=== PATIENT | female | born 1985 | race Caucasian/White ===

== ENCOUNTER 2016-08-17 20:33 | Emergency (ER) | payer OTHER ==
--- NOTE | 2016-08-18 01:02 | DIAGNOSTIC IMAGING REPORT ---
PROCEDURE: XR CHEST 2 VIEW INDICATION: Cough x 2 weeks, initial encounter TECHNIQUE: PA and lateral view. COMPARISON: None. FINDINGS: Lungs are clear. Cardiovascular structures are normal. Bilateral nipple piercings . Bony thorax is unremarkable. No significant interval change. IMPRESSION: 1. Negative chest.
--- NOTE | 2016-08-18 04:09 | ED CLINICAL REPORT ---
Clinical Report - Physicians/Mid Levels [facility] [address] [place] [address] 08/17/2016 20:35 [id number] Time Seen: 21:09; initial patient contact. Arrived- By private vehicle. Historian- patient. HISTORY OF PRESENT ILLNESS Chief Complaint: "GOT THE SHAKES". Wants to stop drinking. Wants to enter detox program. Looking for a treatment center, all are full, she is worried about DT's while she looks. Symptoms started today. Duration of substance abuse- several months. Substances abused: Alcohol. Last drink consisted of liquor less than 12 hours ago. No fever, chills, diarrhea, abdominal pain or seizure. No agitation, delusions, hallucinations or suicidal thoughts. She has had nausea, vomiting and tremors. Not confused or paranoid. Has not been depressed. The symptoms are described as moderate. No injuries noted. Similar symptoms previously: Several times. Recent medical care: Not recently seen/assessed. REVIEW OF SYSTEMS No sweats, headache, dizziness, weakness or chest pain. She has had difficulty breathing, palpitations and a cough. All systems otherwise negative, except as recorded above. PAST HISTORY Dehydration. Hepatitis. Sinus Tachycardia. Alcohol Withdrawal. Lumbar Strain. Insomnia. Back Pain. URI. . SURGERIES: Dental Surgery. Tonsillectomy. SOCIAL HISTORY Current every day smoker. Alcohol use. Patient is alcoholic. Has social support. Has place to stay. ADDITIONAL NOTES The nursing notes have been reviewed with agreement regarding the chief complaint, PMH and patient medications and allergies. PHYSICAL EXAM Vital Signs: 08/17/2016 21:11 BP: 137/93. HR: 127. RR: 16. O2 saturation: 98%. Temp: 98.4 F. Have been reviewed. Hypertensive. Tachycardic. Respiratory rate normal. Temperature normal. Oxygen saturation normal. Appearance: Alert. Oriented X3. No acute distress. ENT: Dry mucous membranes present. CVS: Tachycardia. Heart sounds normal. Rhythm normal. Respiratory: No respiratory distress. Expiratory mild bilateral wheezes diffusely. No decreased air movement. Abdomen: Soft and nontender. No organomegaly. Skin: Skin warm and dry. Normal skin color. No rash. Extremities: No calf tenderness. No lower extremity edema. Neuro: Alert. Oriented X 3. Mood/affect normal. Speech normal. LABS, X-RAYS, AND EKG Laboratory Tests: UA-Culture if indicated: (VERN: 08/17/2016 01:50) ( [facility] 08/18/2016 02:16) Final results Test Result Flag Units (Reference) URINE COLOR ORANGE URINE APPEARANCE SLIGHTLY HAZY URINE GLUCOSE NEGATIVE (NEGATIVE) URINE SPECIFIC GRAVITY >= 1.030 (1.010-1.030) URINE PH 6.0 (5.0-8.0) URINE PROTEIN 2+ (NEGATIVE) URINE UROBILINOGEN 1.0 EU/dL (0.2-1.0) URINE BLOOD TRACE-LYSED (NEGATIVE) URINE LEUK ESTERASE NEGATIVE (NEGATIVE) URINE RBC 0-1 rbc/hpf (0-1) URINE WBC 0-1 wbc/hpf (0-1) URINE EPITHELIAL CELLS 3-5 EPI/hpf (0-5) URINE BACTERIA NONE SEEN (NONE SEEN) URINE COMMENT CULT NOT INDICATED KETONE,NITRITE AND BILIRUBIN NOT REPORTED DUE TO COLORINTERFERENCE.MUCUS 3+AMORPHOUS 1+URINE CULTURES ARE SET-UP BASED ON THE FOLLOWING CRITERIA:POSITIVE NITRITEPOSITIVE LEUKOCYTE ESTERASEGREATER THAN 10 WHITE BLOOD CELLSMODERATE (2+) OR GREATER BACTERIA Urine: (VERN: 08/17/2016 01:50) ( [facility] 08/18/2016 02:04) Final results Test Result Flag Units (Reference) URINE NEGATIVE CBC w Diff: (VERN: 08/17/2016 21:15) ( [facility] 08/17/2016 21:55) Final results Test Result Flag Units (Reference) WHITE BLOOD COUNT 4.2 L K/uL (4.5-11.5) RED BLOOD COUNT 4.27 M/uL (4.00-5.20) HEMOGLOBIN 15.2 gm/dL (12.0-16.0) HEMATOCRIT 46.1 H % (36.0-46.0) MEAN CELL VOLUME 108 H fL (80-100) MEAN CORPUSCULAR HGB 36 H pg (26-34) MEAN CORPUSCULAR HGB CONC 33 g/dL (31-37) RED CELL DISTRIBUTION WIDTH 14.9 H % (11.6-14.8) PLATELET COUNT 146 L K/uL (150-400) NEUTROPHIL % 57.5 % (50-75) LYMPH % 27.7 % (25-40) MONO % 13.7 % (3-14) EOSINOPHIL % 0.5 % (0-4) BASOPHIL % 0.6 % (0-2) Ethyl Alcohol: (VERN: 08/17/2016 21:15) ( [facility] 08/17/2016 22:11) Final results Test Result Flag Units (Reference) ETHYL ALCOHOL 217 H mg/dL (3-10) Urine Drug Screen: (VERN: 08/17/2016 01:50) ( [facility] 08/18/2016 02:32) Final results Test Result Flag Units (Reference) AMPHETAMINE/METHAMPHETAMINE NEGATIVE (NEGATIVE) BARBITURATE NEGATIVE (NEGATIVE) BENZODIAZEPINE NEGATIVE (NEGATIVE) CANNABINOID NEGATIVE (NEGATIVE) COCAINE NEGATIVE (NEGATIVE) ECSTASY NEGATIVE (NEGATIVE) METHADONE NEGATIVE (NEGATIVE) OPIATE NEGATIVE (NEGATIVE) The urine drug screen is a qualitative screening test fordrug overdose and abuse. All screen results should beconsidered as presumptive.Drugs screened for are as follows:BenzodiazepinesCocaineAmphetamines/MetamphetaminesTHC (Tetrahydrocannabinol)OpiatesBarbituratesEcstasyMethadonePositive results are unconfirmed. For confirmation, notifythe lab for the specimen to be sent to the reference lab.All confirmations must be performed by a differentmethodology.The ingestion of natural herbal and plant productscontaining Ephedra/Ephedra metabolites can produce in urineone or more substances capable of cross reacting withamphetamine/methamphetamine immunoassays. These testsprovide a preliminary result only. A more specificalternative chemical method must be used to obtain aconfirmed analytical result. CMP: (VERN: 08/17/2016 21:15) ( [facility] 08/17/2016 22:03) Final results Test Result Flag Units (Reference) GLUCOSE 128 H mg/dL (70-110) BUN 14 mg/dL (7-18) CREATININE 1.0 mg/dL (0.6-1.3) Estimated GFR >60 mL/min Estimated GFR- >60 mL/min Note: Persistent reduction over 3 months in eGFR<60 mL/min/1.73 m2 defines CKD. Patients with eGFR values>=60 mL/min/1.73 m2 may also have CKD if evidence ofpersistent proteinuria. Additional information may be foundat www.kidney.org. SODIUM 141 mmol/L (136-145) POTASSIUM 3.9 mmol/L (3.5-5.1) CHLORIDE 99 mmol/L (98-107) CARBON DIOXIDE 25 mmol/L (21-32) CALCIUM 8.6 mg/dL (8.5-10.1) TOTAL PROTEIN 7.4 g/dL (6.4-8.2) ALBUMIN 4.3 g/dL (3.3-5.0) BILIRUBIN, TOTAL 2.3 H mg/dL (0.0-1.0) ALKALINE PHOSPHATASE 112 U/L (46-116) AST (SGOT) 478 H U/L (15-37) ALT (SGPT) 226 H U/L (12-78) . PROGRESS AND PROCEDURES Course of Care: 08/18/2016 02:54 BP: 104/57. HR: 100. RR: 16. O2 saturation: 96%. Vital Signs: have been reviewed. Hypotensive. Heart rate normal. Respiratory rate normal. Oxygen saturation normal. Physical exam findings are improved. Symptoms much better. Disposition: Condition: good. CLINICAL IMPRESSION Alcohol withdrawal with delirium tremens. No delirium, hallucinations or seizures. Abnormal liver function test: AST/SGOT and ALT/SGPT. INSTRUCTIONS Drink plenty of fluids. No alcohol. Prescription Medications: Chlordiazepoxide 25 mg: take 1 orally every 4 hours for 5 days. Dispense thirty (30). No refill. Zofran ODT 4 mg: take 1 orally every 6 hours as needed for nausea and vomiting. Dispense ten (10). No refill. Substitution is permissible. Flagyl 500 mg: Take 1 tablet orally every 12 hours for 7 days. No refill. Substitution is permissible Follow-up: Follow up with your doctor in about one day. Call for an appointment. (Electronically signed by Carlos A Deluna Dr. 08/18/2016 4:15)
--- NOTE | 2016-08-18 04:09 | ED ORDER SUMMARY ---
..... Patient: WILLIAM LEONARD OrderSheet [facility] VisitID: [id number] [place] [address] 30y, F Registration Date/Time: 08/17/2016 ORDER SHEET Weight: 79.3 kg Allergies: No Known Drug Allergy GENERAL ORDERS: CBC w Diff Urgent (21:36 08/17/2016 EBonlianna per protocol) (Ack 21:43 NHouse ER Tech1) (1:56 AMcQuoid ER Tech1) CMP Urgent (21:36 08/17/2016 EBonham per protocol) (Ack 21:43 NHouse ER Tech1) (1:56 AMcQuoid ER Tech1) UA-Culture if indicated Urgent (21:50 08/17/2016 Esther Blanc) (Ack 21:58 NHouse ER Tech1) (1:55 AMcQuoid ER Tech1) Urine Urgent (21:50 08/17/2016 Esther Blanc) (Ack 21:58 NHouse ER Tech1) (1:55 AMcQuoid ER Tech1) Urine Drug Screen Urgent (21:50 08/17/2016 Esther Blanc) (Ack 21:58 NHouse ER Tech1) (1:55 AMcQuoid ER Tech1) Ethyl Alcohol Urgent (21:52 08/17/2016 Esther Blanc) (Ack 21:58 NHouse ER Tech1) (1:56 AMcQuoid ER Tech1) Chest 2V Urgent (21:53 08/17/2016 Esther Blanc) (Ack 21:58 SCouse ER Tech1) (22:[address] [facility]) MEDICATION ORDERS: DuoNeb Neb Tx 1 unit dose (NOW) (21:53 08/17/2016 Esther Blanc) IV FLUIDS: IV NS with Normal Saline 1 Liter: initial bolus 1000 mL (1000 mL/hr), then 1000 mL/hr for X1 (NOW) (21:36 08/17/2016 EBonlianna per protocol) (21:37 EBonham) Zofran IV 4 mg (NOW) (21:36 08/17/2016 EBonham per protocol) (21:38 EBonham) Ativan IV 1 mg (HIGH ALERT MEDICATION, NOW) (21:50 08/17/2016 Esther Blanc) (22:06 Mary Jane) Ativan IV 1 mg (HIGH ALERT MEDICATION, NOW) (23:16 08/17/2016 Esther Blanc) (23:25 EBpino) Toradol IV 30 mg (NOW) (23:47 08/17/2016 Esther Blanc) (Ack 0:35 Desiree R.N.) (0:42 pino) ORDER SHEET NOTES: [Electronically signed by Carlos A Deluna Dr. (04:15 08/18/2016)] [Electronically signed by Andra Boston (04:25 08/18/2016)] [Electronically locked/signed by Andra Boston (04:25 08/18/2016)]
--- NOTE | 2016-08-18 04:09 | ED NURSING NOTES ---
Clinical Report - Nurses [facility] [address] [place] [address] 08/17/2016 20:35 Patient: WILLIAM LEONARD TRIAGE Triage time 2105. Acuity: LEVEL 3. Chief Complaint: NAUSEA and VOMITING. Alert. No acute distress. (tearful). --21:16 Andra Boston 21:11 08/17/16. BP: 137/93. HR: 127. RR: 16. O2 saturation: 98%. Temp: 98.4 F. Pain level now 0/10. --21:16 Andra Boston. Weight: 79.3 kg. Height/Length: 68 inches. BMI: 26.6. --21:11 Andra Boston. Medications None. --21:13 Andra Boston. Allergies No Known Drug Allergy. --21:13 Andra Boston. History Arrived by private vehicle. Historian: patient. Accompanied by family. This started today. ( Pt with 10 mos of etoh hx, 1/5th a day, is on the wait list for treatment facility, pts last drink at 1400, sts she is vomiting non stop and has been unable to eat, sts this started due to "a bad break up", py currently living with new boyfriend who she sts is sober and is aware of the problem, parents are here with pt). SOCIAL HX: Current every day heavy tobacco smoker (cigarette)- less than 1 pack per day. Heavy alcohol use; consumes one liquor bottle daily. Last drink was 7 hours ago. Patient is a longstanding alcoholic. No drug use. SELF HARM ASSESSMENT: A self harm assessment was performed. The patient answered "yes" to the question "Have you recently felt down, depressed, or hopeless?" and "Have you noticed less interest or pleasure in doing things?" and "no" to the question "Do you have thoughts of harming or killing yourself?", "Are you here because you tried to hurt yourself?", "Have you ever tried to hurt yourself before today?", "Have you recently had thoughts about harming or killing others?" and "Do you have any dangerous items in your possession?". --21:16 Andra Boston. PROBLEMS: Dehydration. Hepatitis. Sinus Tachycardia. Alcohol Withdrawal. Lumbar Strain. Insomnia. Back Pain. URI. --21:14 Andra Boston. ADDITIONAL SURGERIES: Dental Surgery. Tonsillectomy. --21:14 Andra Boston. Interventions ID band on patient. To treatment room. --21:16 Andra Boston. PHYSICAL ASSESSMENT Ambulatory to room. GENERAL / NEURO / PSYCH: Alert. Oriented X 4. Appears in distress. HEENT: Mucous membranes are pink. RESPIRATORY: Respirations not labored. Breath sounds within normal limits. CVS: Normal sinus rhythm noted. Capillary refill less than 2 seconds. GI / : Abdomen soft and nontender. Bowel sounds within normal limits. SKIN: Skin is warm and dry. --21:17 Andra Boston. NURSING PROGRESS NOTES 21:35 08/17/2016 Site #1 started via IV in the right antecubital space with an 20g angiocath, with aseptic technique and good blood return; one attempt. Blood drawn: rainbow set. Labeled in the presence of the patient and sent to the lab. Saline lock flushed with 10 mL saline. --21:35 Andra Boston 21:37 08/17/2016 Started bag #1 1000 mL IV Fluids IV NS (Saline); bolus of 1000 mL over 1000 hour(s) via site #1 via IV pump. --21:37 Andra Boston 21:37 08/17/2016 Zofran (Ondansetron HCl) IVP 4 mg given. via site #1. Allergies verified and confirmed 5 rights. IV patency established. IV site checked: no pain, redness, or swelling. IV flushed thoroughly pre- and post-medication administration. IVP given by RN. --21:38 Andra Boston 22:06 08/17/2016 Ativan (LORazepam) IVP 1 mg given. via site #1. Allergies verified, confirmed 5 rights and sedative warning given to the patient. IV patency established. IV site checked: no pain, redness, or swelling. IV flushed thoroughly pre- and post-medication administration. IVP given by RN. --22:06 Andra Boston 23:25 08/17/2016 Ativan (LORazepam) IVP 1 mg given. via site #1. Allergies verified, confirmed 5 rights and sedative warning given to the patient and patient's family. IV patency established. IV site checked: no pain, redness, or swelling. IV flushed thoroughly pre- and post-medication administration. IVP given by RN. --23:25 Andra Boston Reassessment after medication administered. She has had no adverse reaction. Overall patient status is the same- she states feels the same. Patient and family informed about reason for wait and about plan of care. --23:26 Andra Boston 23:08/17/16. BP: 114/79. HR: 105. RR: 20. O2 saturation: 97%. Pain level now 8/10. --23:26 Andra Boston 00:42 08/18/2016 Ativan (LORazepam) IVP 1 mg given. via site #1. Allergies verified, confirmed 5 rights and sedative warning given to the patient and patient's family. IV patency established. IV site checked: no pain, redness, or swelling. IV flushed thoroughly pre- and post-medication administration. IVP given by RN. --00:42 Andra Boston 00:42 08/18/2016 Toradol IVP 30 mg given. via site #1. Allergies verified and confirmed 5 rights. IV patency established. IV site checked: no pain, redness, or swelling. IV flushed thoroughly pre- and post-medication administration. IVP given by RN. --00:42 Andra Boston 00:43 08/18/16. BP: 111/66. HR: 114. RR: 20. O2 saturation: 95%. --00:43 Andra Boston 02:54 08/18/16. BP: 104/57. HR: 100. RR: 16. O2 saturation: 96%. Pain level now 0/10. --02:54 Andra Boston Reassessment after medication administered. She is sleeping and has had no adverse reaction. Overall patient status is improved- she states feels better. --02:54 Andra Boston 04:23 08/18/2016 Site #1 removed upon discharge. Pressure dressing applied. --04:23 Andra Boston 04:08/18/2016 IV Fluids IV NS Discontinued: bag #1 completed upon discharge. Total amount infused: 1000 mL. IV patency established. IV site checked: no pain, redness, or swelling. IV flushed thoroughly. --04:23 Andra Boston. DISPOSITION / DISCHARGE 04:08/18/16. BP: 114/70. HR: 120. RR: 18. O2 saturation: 96%. --04:24 Andra Boston Condition at departure: improved and stable. --04:24 Andra Boston Departure time: 0425. --04:24 Andra Boston No learning barriers present. Discharge instructions provided and reviewed with the parent. Reviewed medication(s). Parent verbalized understanding. Written instructions provided in Angolan. The patient was discharged by the physician. She was discharged home and accompanied by parent. She left the Emergency Department ambulatory and via private vehicle. Parent driving. --04:24 Andra Boston. Locked/Released at 08/18/2016 4:25 by Andra Boston,
--- NOTE | 2016-08-18 04:09 | ED CLINICAL REPORT ---
Clinical Report - Physicians/Mid Levels [facility] [address] [place] [address] 08/17/2016 20:35 [id number] Time Seen: 21:09; initial patient contact. Arrived- By private vehicle. Historian- patient. HISTORY OF PRESENT ILLNESS Chief Complaint: "GOT THE SHAKES". Wants to stop drinking. Wants to enter detox program. Looking for a treatment center, all are full, she is worried about DT's while she looks. Symptoms started today. Duration of substance abuse- several months. Substances abused: Alcohol. Last drink consisted of liquor less than 12 hours ago. No fever, chills, diarrhea, abdominal pain or seizure. No agitation, delusions, hallucinations or suicidal thoughts. She has had nausea, vomiting and tremors. Not confused or paranoid. Has not been depressed. The symptoms are described as moderate. No injuries noted. Similar symptoms previously: Several times. Recent medical care: Not recently seen/assessed. REVIEW OF SYSTEMS No sweats, headache, dizziness, weakness or chest pain. She has had difficulty breathing, palpitations and a cough. All systems otherwise negative, except as recorded above. PAST HISTORY Dehydration. Hepatitis. Sinus Tachycardia. Alcohol Withdrawal. Lumbar Strain. Insomnia. Back Pain. URI. . SURGERIES: Dental Surgery. Tonsillectomy. SOCIAL HISTORY Current every day smoker. Alcohol use. Patient is alcoholic. Has social support. Has place to stay. ADDITIONAL NOTES The nursing notes have been reviewed with agreement regarding the chief complaint, PMH and patient medications and allergies. PHYSICAL EXAM Vital Signs: 08/17/2016 21:11 BP: 137/93. HR: 127. RR: 16. O2 saturation: 98%. Temp: 98.4 F. Have been reviewed. Hypertensive. Tachycardic. Respiratory rate normal. Temperature normal. Oxygen saturation normal. Appearance: Alert. Oriented X3. No acute distress. ENT: Dry mucous membranes present. CVS: Tachycardia. Heart sounds normal. Rhythm normal. Respiratory: No respiratory distress. Expiratory mild bilateral wheezes diffusely. No decreased air movement. Abdomen: Soft and nontender. No organomegaly. Skin: Skin warm and dry. Normal skin color. No rash. Extremities: No calf tenderness. No lower extremity edema. Neuro: Alert. Oriented X 3. Mood/affect normal. Speech normal. LABS, X-RAYS, AND EKG Laboratory Tests: UA-Culture if indicated: (VERN: 08/17/2016 01:50) ( [facility] 08/18/2016 02:16) Final results Test Result Flag Units (Reference) URINE COLOR ORANGE URINE APPEARANCE SLIGHTLY HAZY URINE GLUCOSE NEGATIVE (NEGATIVE) URINE SPECIFIC GRAVITY >= 1.030 (1.010-1.030) URINE PH 6.0 (5.0-8.0) URINE PROTEIN 2+ (NEGATIVE) URINE UROBILINOGEN 1.0 EU/dL (0.2-1.0) URINE BLOOD TRACE-LYSED (NEGATIVE) URINE LEUK ESTERASE NEGATIVE (NEGATIVE) URINE RBC 0-1 rbc/hpf (0-1) URINE WBC 0-1 wbc/hpf (0-1) URINE EPITHELIAL CELLS 3-5 EPI/hpf (0-5) URINE BACTERIA NONE SEEN (NONE SEEN) URINE COMMENT CULT NOT INDICATED KETONE,NITRITE AND BILIRUBIN NOT REPORTED DUE TO COLORINTERFERENCE.MUCUS 3+AMORPHOUS 1+URINE CULTURES ARE SET-UP BASED ON THE FOLLOWING CRITERIA:POSITIVE NITRITEPOSITIVE LEUKOCYTE ESTERASEGREATER THAN 10 WHITE BLOOD CELLSMODERATE (2+) OR GREATER BACTERIA Urine: (VERN: 08/17/2016 01:50) ( [facility] 08/18/2016 02:04) Final results Test Result Flag Units (Reference) URINE NEGATIVE CBC w Diff: (VERN: 08/17/2016 21:15) ( [facility] 08/17/2016 21:55) Final results Test Result Flag Units (Reference) WHITE BLOOD COUNT 4.2 L K/uL (4.5-11.5) RED BLOOD COUNT 4.27 M/uL (4.00-5.20) HEMOGLOBIN 15.2 gm/dL (12.0-16.0) HEMATOCRIT 46.1 H % (36.0-46.0) MEAN CELL VOLUME 108 H fL (80-100) MEAN CORPUSCULAR HGB 36 H pg (26-34) MEAN CORPUSCULAR HGB CONC 33 g/dL (31-37) RED CELL DISTRIBUTION WIDTH 14.9 H % (11.6-14.8) PLATELET COUNT 146 L K/uL (150-400) NEUTROPHIL % 57.5 % (50-75) LYMPH % 27.7 % (25-40) MONO % 13.7 % (3-14) EOSINOPHIL % 0.5 % (0-4) BASOPHIL % 0.6 % (0-2) Ethyl Alcohol: (VERN: 08/17/2016 21:15) ( [facility] 08/17/2016 22:11) Final results Test Result Flag Units (Reference) ETHYL ALCOHOL 217 H mg/dL (3-10) Urine Drug Screen: (VERN: 08/17/2016 01:50) ( [facility] 08/18/2016 02:32) Final results Test Result Flag Units (Reference) AMPHETAMINE/METHAMPHETAMINE NEGATIVE (NEGATIVE) BARBITURATE NEGATIVE (NEGATIVE) BENZODIAZEPINE NEGATIVE (NEGATIVE) CANNABINOID NEGATIVE (NEGATIVE) COCAINE NEGATIVE (NEGATIVE) ECSTASY NEGATIVE (NEGATIVE) METHADONE NEGATIVE (NEGATIVE) OPIATE NEGATIVE (NEGATIVE) The urine drug screen is a qualitative screening test fordrug overdose and abuse. All screen results should beconsidered as presumptive.Drugs screened for are as follows:BenzodiazepinesCocaineAmphetamines/MetamphetaminesTHC (Tetrahydrocannabinol)OpiatesBarbituratesEcstasyMethadonePositive results are unconfirmed. For confirmation, notifythe lab for the specimen to be sent to the reference lab.All confirmations must be performed by a differentmethodology.The ingestion of natural herbal and plant productscontaining Ephedra/Ephedra metabolites can produce in urineone or more substances capable of cross reacting withamphetamine/methamphetamine immunoassays. These testsprovide a preliminary result only. A more specificalternative chemical method must be used to obtain aconfirmed analytical result. CMP: (VERN: 08/17/2016 21:15) ( [facility] 08/17/2016 22:03) Final results Test Result Flag Units (Reference) GLUCOSE 128 H mg/dL (70-110) BUN 14 mg/dL (7-18) CREATININE 1.0 mg/dL (0.6-1.3) Estimated GFR >60 mL/min Estimated GFR- >60 mL/min Note: Persistent reduction over 3 months in eGFR<60 mL/min/1.73 m2 defines CKD. Patients with eGFR values>=60 mL/min/1.73 m2 may also have CKD if evidence ofpersistent proteinuria. Additional information may be foundat www.kidney.org. SODIUM 141 mmol/L (136-145) POTASSIUM 3.9 mmol/L (3.5-5.1) CHLORIDE 99 mmol/L (98-107) CARBON DIOXIDE 25 mmol/L (21-32) CALCIUM 8.6 mg/dL (8.5-10.1) TOTAL PROTEIN 7.4 g/dL (6.4-8.2) ALBUMIN 4.3 g/dL (3.3-5.0) BILIRUBIN, TOTAL 2.3 H mg/dL (0.0-1.0) ALKALINE PHOSPHATASE 112 U/L (46-116) AST (SGOT) 478 H U/L (15-37) ALT (SGPT) 226 H U/L (12-78) . PROGRESS AND PROCEDURES Course of Care: 08/18/2016 02:54 BP: 104/57. HR: 100. RR: 16. O2 saturation: 96%. Vital Signs: have been reviewed. Hypotensive. Heart rate normal. Respiratory rate normal. Oxygen saturation normal. Physical exam findings are improved. Symptoms much better. Disposition: Condition: good. CLINICAL IMPRESSION Alcohol withdrawal with delirium tremens. No delirium, hallucinations or seizures. Abnormal liver function test: AST/SGOT and ALT/SGPT. INSTRUCTIONS Drink plenty of fluids. No alcohol. Prescription Medications: Chlordiazepoxide 25 mg: take 1 orally every 4 hours for 5 days. Dispense thirty (30). No refill. Zofran ODT 4 mg: take 1 orally every 6 hours as needed for nausea and vomiting. Dispense ten (10). No refill. Substitution is permissible. Flagyl 500 mg: Take 1 tablet orally every 12 hours for 7 days. No refill. Substitution is permissible Follow-up: Follow up with your doctor in about one day. Call for an appointment. (Electronically signed by Carlos A Deluna Dr. 08/18/2016 4:15)
--- NOTE | 2016-08-18 04:09 | ED ORDER SUMMARY ---
..... Patient: WILLIAM LEONARD OrderSheet [facility] VisitID: [id number] [place] [address] 30y, F Registration Date/Time: 08/17/2016 ORDER SHEET Weight: 79.3 kg Allergies: No Known Drug Allergy GENERAL ORDERS: CBC w Diff Urgent (21:36 08/17/2016 EBonlianna per protocol) (Ack 21:43 NHouse ER Tech1) (1:56 AMcQuoid ER Tech1) CMP Urgent (21:36 08/17/2016 EBonham per protocol) (Ack 21:43 NHouse ER Tech1) (1:56 AMcQuoid ER Tech1) UA-Culture if indicated Urgent (21:50 08/17/2016 Esther Blanc) (Ack 21:58 NHouse ER Tech1) (1:55 AMcQuoid ER Tech1) Urine Urgent (21:50 08/17/2016 Esther Blanc) (Ack 21:58 NHouse ER Tech1) (1:55 AMcQuoid ER Tech1) Urine Drug Screen Urgent (21:50 08/17/2016 Esther Blanc) (Ack 21:58 NHouse ER Tech1) (1:55 AMcQuoid ER Tech1) Ethyl Alcohol Urgent (21:52 08/17/2016 Esther Blanc) (Ack 21:58 NHouse ER Tech1) (1:56 AMcQuoid ER Tech1) Chest 2V Urgent (21:53 08/17/2016 Esther Blanc) (Ack 21:58 NVouse ER Tech1) (22:58 [facility]) MEDICATION ORDERS: DuoNeb Neb Tx 1 unit dose (NOW) (21:53 08/17/2016 Esther Blanc) IV FLUIDS: IV NS with Normal Saline 1 Liter: initial bolus 1000 mL (1000 mL/hr), then 1000 mL/hr for X1 (NOW) (21:36 08/17/2016 EBonlianna per protocol) (21:37 EBonham) Zofran IV 4 mg (NOW) (21:36 08/17/2016 EBonham per protocol) (21:38 EBonham) Ativan IV 1 mg (HIGH ALERT MEDICATION, NOW) (21:50 08/17/2016 Esther Blanc) (22:06 Mary Jane) Ativan IV 1 mg (HIGH ALERT MEDICATION, NOW) (23:16 08/17/2016 Esther Blanc) (23:25 EBpino) Toradol IV 30 mg (NOW) (23:47 08/17/2016 Esther Blanc) (Ack 0:35 Desiree R.N.) (0:42 pino) ORDER SHEET NOTES: [Electronically signed by Carlos A Deluna Dr. (04:15 08/18/2016)] [Electronically signed by Andra Boston (04:25 08/18/2016)] [Electronically locked/signed by Andra Boston (04:25 08/18/2016)]
--- NOTE | 2016-08-18 04:25 | ED MED RECONCILIATION SUMMARY ---
Patient: WILLIAM LEONARD Medication Reconciliation Report [facility] VisitID: [id number] [place] [address] 30y, F Registration Date/Time: 08/17/2016 Weight: 79.3 kg Height/Length: 68 in. BMI: 26.6 ALLERGIES: No Known Drug Allergy The patient's Home Medications are listed below: NONE. The source(s) of the original Home Medication information: Not obtained. The following Medications were given to the patient in the Emergency Department: IV NS IV Fluids bolus 1000 mL over 1000 hour(s), administered: 08/17/2016 9:37:00 PM Zofran [IVP] IVP 4 mg, administered: 08/17/2016 9:37:00 PM Ativan [IVP] IVP 1 mg, administered: 08/17/2016 10:06:00 PM Ativan [IVP] IVP 1 mg, administered: 08/17/2016 11:25:00 PM Ativan [IVP] IVP 1 mg, administered: 08/18/2016 12:42:00 AM Toradol [IVP] IVP 30 mg, administered: 08/18/2016 12:42:00 AM The following Medications were prescribed to the patient: Chlordiazepoxide 25 mg: take 1 orally every 4 hours for 5 days. Dispense thirty (30). No refill. -- Carlos A Deluna Dr. Zofran ODT 4 mg: take 1 orally every 6 hours as needed for nausea and vomiting. Dispense ten (10). No refill. Substitution is permissible. -- Carlos A Deluna Dr. Flagyl 500 mg: Take 1 tablet orally every 12 hours for 7 days. No refill. Substitution is permissible -- Carlos A Deluna Dr.
--- NOTE | 2016-08-18 04:25 | ED DISCHARGE INSTRUCTIONS ---
Patient: WILLIAM LEONARD General Instructions [facility] VisitID: [id number] [place] [address] 30y, F Registration Date/Time: 08/17/2016 Alcohol withdrawal with delirium tremens. No delirium, hallucinations or seizures. Abnormal liver function test: AST/SGOT and ALT/SGPT. INSTRUCTIONS Drink plenty of fluids. No alcohol. Prescription Medications: Chlordiazepoxide 25 mg: take 1 orally every 4 hours for 5 days. Dispense thirty (30). No refill. Zofran ODT 4 mg: take 1 orally every 6 hours as needed for nausea and vomiting. Dispense ten (10). No refill. Substitution is permissible. Flagyl 500 mg: Take 1 tablet orally every 12 hours for 7 days. No refill. Substitution is permissible Follow-up: Follow up with your doctor in about one day. Call for an appointment. ADDITIONAL INFORMATION Alcohol Withdrawal Alcohol withdrawal symptoms occur if you have been drinking steadily for at least several days, and your body gets used to the effect of alcohol. When you suddenly stop drinking (or, even just cut down your daily intake but continue to drink), you may develop alcohol withdrawal, also called the The usual symptoms last 3-4 days and include nervousness, shakiness, nausea, sweating, sleeplessness. In severe cases hallucinations (seeing things that are not there) and seizures can occur. Home Care: You will need plenty of rest and fluids over the next several days. Eat regular meals. Of course, do not drink any more alcohol. During this time, it is best that you stay with family or friends who can help and support you. You can also admit yourself to a residential detox program. Do not drive until all symptoms are gone and you are feeling better. If you were given sedative medication to reduce your symptoms, do not take it more often than prescribed and never take it with alcohol. Follow Up: Once you have gone through the withdrawal symptoms, you have fought half of the brown. To avoid the risk of returning to your previous drinking pattern, it is essential that you get follow-up support and treatment. Alcoholics Anonymous offers support through a self-help fellowship. There are no dues or fees. See the Yellow Pages and call for time and place of meetings. www.aa.org [employer] offers support to families of alcohol users. 201.727.7798 www.al-anon.org [employer] [place] On Alcoholism And Drug Dependence 037-664-5363 www.ncadd.org Residential alcohol detox programs are available. Check the Yellow Pages under Drug Abuse & Treatment Centers. Get Prompt Medical Attention if any of the following occur: Severe shakiness Hallucinations Seizure Fever over 100.5 F (38.0 C) oral Headache, confusion, extreme drowsiness, inability to awaken Increasing upper abdominal pain Repeated vomiting or vomiting blood Chlordiazepoxide Hydrochloride Oral capsule What is this medicine? CHLORDIAZEPOXIDE (klor dye az e POX peter) is a benzodiazepine. It is used to treat anxiety and alcohol withdrawal. How should I use this medicine? Take this medicine by mouth with a glass of water. Follow the directions on the prescription label. If this medicine upsets your stomach, take it with food or milk. Take your doses at regular intervals. Do not take your medicine more often than directed. If you have been taking this medicine regularly for some time, do not suddenly stop taking it. You must gradually reduce the dose or you may get severe side effects. Ask your doctor or health before and after school daycare worker for advice. Even after you stop taking this medicine it can still affect your body for several days. Talk to your social services specialist regarding the use of this medicine in children. Special care may be needed. While this drug may be prescribed for children as young as 6 years for selected conditions, precautions do apply. What side effects may I notice from receiving this medicine? Side effects that you should report to your doctor or health before and after school daycare worker as soon as possible: allergic reactions like skin rash, itching or hives, swelling of the face, lips, or tongue confusion, depression feeling faint or lightheaded, falls mood changes, excitability or aggressive behavior muscle cramps problems with balance, talking, walking restlessness tremors unusually weak or tired Side effects that usually do not require medical attention (report to your doctor or health before and after school daycare worker if they continue or are bothersome): change in sex drive or performance constipation drowsiness menstrual changes nausea, vomiting What may interact with this medicine? cimetidine medicines for anxiety or sleeping problems, like alprazolam, lorazepam, or triazolam medicines for depression, mental problems or psychiatric disturbances medicines for HIV infection or AIDS prescription pain medicines rifampin, rifapentine, or rifabutin some medicines for seizures like carbamazepine, phenobarbital, phenytoin, or primidone What if I miss a dose? If you miss a dose, take it as soon as you can. If it is almost time for your next dose, take only that dose. Do not take double or extra doses. Where should I keep my medicine? Keep out of the reach of children. This medicine can be abused. Keep your medicine in a safe place to protect it from theft. Do not share this medicine with anyone. Selling or giving away this medicine is dangerous and against the law. Store at room temperature between 15 and 30 degrees C (59 and 86 degrees F). Throw away any unused medicine after the expiration date. What should I tell my health care provider before I take this medicine? They need to know if you have any of these conditions: an alcohol or drug abuse problem kidney or liver disease suicidal thoughts an unusual or allergic reaction to chlordiazepoxide, other benzodiazepines, foods, dyes, or preservatives or trying to get breast-feeding What should I watch for while using this medicine? Visit your doctor or health before and after school daycare worker for regular checks on your progress. Your body can become dependent on this medicine. Ask your doctor or health before and after school daycare worker if you still need to take it. You may get drowsy or dizzy. Do not drive, use machinery, or do anything that needs mental alertness until you know how this medicine affects you. To reduce the risk of dizzy and fainting spells, do not stand or sit up quickly, especially if you are an older patient. Alcohol may increase dizziness and drowsiness. Avoid alcoholic drinks. Do not treat yourself for coughs, colds or allergies without asking your doctor or health before and after school daycare worker for advice. Some ingredients can increase possible side effects. Ondansetron Oral disintegrating tablet What is this medicine? ONDANSETRON (on CHAR se aurora) is used to treat nausea and vomiting caused by chemotherapy. It is also used to prevent or treat nausea and vomiting after surgery. How should I use this medicine? These tablets are made to dissolve in the mouth. Do not try to push the tablet through the foil backing. With dry hands, peel away the foil backing and gently remove the tablet. Place the tablet in the mouth and allow it to dissolve, then swallow. While you may take these tablets with water, it is not necessary to do so. Talk to your social services specialist regarding the use of this medicine in children. Special care may be needed. What side effects may I notice from receiving this medicine? Side effects that you should report to your doctor or health before and after school daycare worker as soon as possible: allergic reactions like skin rash, itching or hives, swelling of the face, lips, or tongue breathing problems dizziness fast or irregular heartbeat feeling faint or lightheaded, falls fever and chills swelling of the hands and feet tightness in the chest Side effects that usually do not require medical attention (report to your doctor or health before and after school daycare worker if they continue or are bothersome): constipation or diarrhea headache What may interact with this medicine? Do not take this medicine with any of the following medications: -apomorphine -cisapride -dofetilide -dronedarone -pimozide -thioridazine -ziprasidone This medicine may also interact with the following medications: -carbamazepine -phenytoin -rifampicin -tramadol -other medicines that prolong the QT interval (cause an abnormal heart rhythm) What if I miss a dose? If you miss a dose, take it as soon as you can. If it is almost time for your next dose, take only that dose. Do not take double or extra doses. Where should I keep my medicine? Keep out of the reach of children. Store between 2 and 30 degrees C (36 and 86 degrees F). Throw away any unused medicine after the expiration date. What should I tell my health care provider before I take this medicine? They need to know if you have any of these conditions: heart disease history of irregular heartbeat liver disease low levels of magnesium or potassium in the blood an unusual or allergic reaction to ondansetron, granisetron, other medicines, foods, dyes, or preservatives or trying to get breast-feeding What should I watch for while using this medicine? Check with your doctor or health before and after school daycare worker as soon as you can if you have any sign of an allergic reaction. Metronidazole Oral tablet What is this medicine? METRONIDAZOLE (me troe NI da zole) is an antiinfective. It is used to treat certain kinds of bacterial and protozoal infections. It will not work for colds, flu, or other viral infections. How should I use this medicine? Take this medicine by mouth with a full glass of water. Follow the directions on the prescription label. Take your medicine at regular intervals. Do not take your medicine more often than directed. Take all of your medicine as directed even if you think you are better. Do not skip doses or stop your medicine early. Talk to your social services specialist regarding the use of this medicine in children. Special care may be needed. What side effects may I notice from receiving this medicine? Side effects that you should report to your doctor or health before and after school daycare worker as soon as possible: allergic reactions like skin rash or hives, swelling of the face, lips, or tongue confusion, clumsiness difficulty speaking discolored or sore mouth dizziness fever, infection numbness, tingling, pain or weakness in the hands or feet trouble passing urine or change in the amount of urine redness, blistering, peeling or loosening of the skin, including inside the mouth seizures unusually weak or tired vaginal irritation, dryness, or discharge Side effects that usually do not require medical attention (report to your doctor or health before and after school daycare worker if they continue or are bothersome): diarrhea headache irritability metallic taste nausea stomach pain or cramps trouble sleeping What may interact with this medicine? Do not take this medicine with any of the following medications: alcohol or any product that contains alcohol amprenavir oral solution cisapride disulfiram dofetilide dronedarone paclitaxel injection pimozide ritonavir oral solution sertraline oral solution sulfamethoxazole-trimethoprim injection thioridazine ziprasidone This medicine may also interact with the following medications: cimetidine lithium other medicines that prolong the QT interval (cause an abnormal heart rhythm) phenobarbital phenytoin warfarin What if I miss a dose? If you miss a dose, take it as soon as you can. If it is almost time for your next dose, take only that dose. Do not take double or extra doses. Where should I keep my medicine? Keep out of the reach of children. Store at room temperature below 25 degrees C (77 degrees F). Protect from light. Keep container tightly closed. Throw away any unused medicine after the expiration date. What should I tell my health care provider before I take this medicine? They need to know if you have any of these conditions: anemia or other blood disorders disease of the nervous system fungal or yeast infection if you drink alcohol containing drinks liver disease seizures an unusual or allergic reaction to metronidazole, or other medicines, foods, dyes, or preservatives or trying to get breast-feeding What should I watch for while using this medicine? Tell your doctor or health before and after school daycare worker if your symptoms do not improve or if they get worse. You may get drowsy or dizzy. Do not drive, use machinery, or do anything that needs mental alertness until you know how this medicine affects you. Do not stand or sit up quickly, especially if you are an older patient. This reduces the risk of dizzy or fainting spells. Avoid alcoholic drinks while you are taking this medicine and for three days afterward. Alcohol may make you feel dizzy, sick, or flushed. If you are being treated for a sexually transmitted disease, avoid sexual contact until you have finished your treatment. Your sexual partner may also need treatment. You have been given the following additional information: Alcohol Withdrawal Chlordiazepoxide Hydrochloride Oral capsule Ondansetron Oral disintegrating tablet Metronidazole Oral tablet (Electronically signed by Carlos A Deluna Dr. 08/18/2016 4:15)
--- NOTE | 2016-08-18 04:25 | ED MAR SUMMARY ---
..... Medication Administration Record [facility] [address] [place] [address] Patient: WILLIAM LEONARD Visit ID: [id number] 30y, F Weight: 79.3 kg Height/Length: 68 in BMI: 26.6 ALLERGIES: No Known Drug Allergy Start 21:37 08/17/2016 Andar Boston,, Stop 04:08/18/2016 Andra Boston, Medication Administered: IV NS (SALINE), Dose: IV Fluids, Bolus: 1000 mL over 1000 hour(s), Dispensed: 1000 mL bag, Site: #1 right AC. Medication Ordered: IV NS with Normal Saline 1 Liter: initial bolus 1000 mL (1000 mL/hr), then 1000 mL/hr for X1 (NOW). Given 21:08/17/2016 Andra Boston, Medication Administered: ZOFRAN [IVP] (ONDANSETRON HCL), Dose: 4 mg IVP, Site: #1 right AC. Medication Ordered: Zofran IV 4 mg (NOW). Given 22:06 08/17/2016 Andra Boston, Medication Administered: ATIVAN [IVP] (LORAZEPAM), Dose: 1 mg IVP, Site: #1 right AC. Medication Ordered: Ativan IV 1 mg (HIGH ALERT MEDICATION, NOW). Given 23:08/17/2016 Andra Boston, Medication Administered: ATIVAN [IVP] (LORAZEPAM), Dose: 1 mg IVP, Site: #1 right AC. Medication Ordered: Ativan IV 1 mg (HIGH ALERT MEDICATION, NOW). Given :08/18/2016 Andra Boston, Medication Administered: ATIVAN [IVP] (LORAZEPAM), Dose: 1 mg IVP, Site: #1 right AC. Medication Ordered: Ativan IV 1 mg (HIGH ALERT MEDICATION, NOW). Given :08/18/2016 Andra Boston, Medication Administered: TORADOL [IVP], Dose: 30 mg IVP, Site: #1 right AC. Medication Ordered: Toradol IV 30 mg (NOW).
--- NOTE | 2016-08-18 04:25 | ED MED RECONCILIATION SUMMARY ---
Patient: WILLIAM LEONARD Medication Reconciliation Report [facility] VisitID: [id number] [place] [address] 30y, F Registration Date/Time: 08/17/2016 Weight: 79.3 kg Height/Length: 68 in. BMI: 26.6 ALLERGIES: No Known Drug Allergy The patient's Home Medications are listed below: NONE. The source(s) of the original Home Medication information: Not obtained. The following Medications were given to the patient in the Emergency Department: IV NS IV Fluids bolus 1000 mL over 1000 hour(s), administered: 08/17/2016 9:37:00 PM Zofran [IVP] IVP 4 mg, administered: 08/17/2016 9:37:00 PM Ativan [IVP] IVP 1 mg, administered: 08/17/2016 10:06:00 PM Ativan [IVP] IVP 1 mg, administered: 08/17/2016 11:25:00 PM Ativan [IVP] IVP 1 mg, administered: 08/18/2016 12:42:00 AM Toradol [IVP] IVP 30 mg, administered: 08/18/2016 12:42:00 AM The following Medications were prescribed to the patient: Chlordiazepoxide 25 mg: take 1 orally every 4 hours for 5 days. Dispense thirty (30). No refill. -- Carlos A Deluna Dr. Zofran ODT 4 mg: take 1 orally every 6 hours as needed for nausea and vomiting. Dispense ten (10). No refill. Substitution is permissible. -- Carlos A Deluna Dr. Flagyl 500 mg: Take 1 tablet orally every 12 hours for 7 days. No refill. Substitution is permissible -- Carlos A Deluna Dr.
--- NOTE | 2016-08-18 04:25 | ED MAR SUMMARY ---
..... Medication Administration Record [facility] [address] [place] [address] Patient: WILLIAM LEONARD Visit ID: [id number] 30y, F Weight: 79.3 kg Height/Length: 68 in BMI: 26.6 ALLERGIES: No Known Drug Allergy Start 21:37 08/17/2016 Andra Boston,, Stop 04:08/18/2016 Andra Boston, Medication Administered: IV NS (SALINE), Dose: IV Fluids, Bolus: 1000 mL over 1000 hour(s), Dispensed: 1000 mL bag, Site: #1 right AC. Medication Ordered: IV NS with Normal Saline 1 Liter: initial bolus 1000 mL (1000 mL/hr), then 1000 mL/hr for X1 (NOW). Given 21:08/17/2016 Andra Boston, Medication Administered: ZOFRAN [IVP] (ONDANSETRON HCL), Dose: 4 mg IVP, Site: #1 right AC. Medication Ordered: Zofran IV 4 mg (NOW). Given 22:06 08/17/2016 Andra Boston, Medication Administered: ATIVAN [IVP] (LORAZEPAM), Dose: 1 mg IVP, Site: #1 right AC. Medication Ordered: Ativan IV 1 mg (HIGH ALERT MEDICATION, NOW). Given 23:08/17/2016 Andra Boston, Medication Administered: ATIVAN [IVP] (LORAZEPAM), Dose: 1 mg IVP, Site: #1 right AC. Medication Ordered: Ativan IV 1 mg (HIGH ALERT MEDICATION, NOW). Given :08/18/2016 Andra Boston, Medication Administered: ATIVAN [IVP] (LORAZEPAM), Dose: 1 mg IVP, Site: #1 right AC. Medication Ordered: Ativan IV 1 mg (HIGH ALERT MEDICATION, NOW). Given :08/18/2016 Andra Boston, Medication Administered: TORADOL [IVP], Dose: 30 mg IVP, Site: #1 right AC. Medication Ordered: Toradol IV 30 mg (NOW).
--- NOTE | 2016-08-18 04:25 | ED DISCHARGE INSTRUCTIONS ---
Patient: WILLIAM LEONARD General Instructions [facility] VisitID: [id number] [place] [address] 30y, F Registration Date/Time: 08/17/2016 Alcohol withdrawal with delirium tremens. No delirium, hallucinations or seizures. Abnormal liver function test: AST/SGOT and ALT/SGPT. INSTRUCTIONS Drink plenty of fluids. No alcohol. Prescription Medications: Chlordiazepoxide 25 mg: take 1 orally every 4 hours for 5 days. Dispense thirty (30). No refill. Zofran ODT 4 mg: take 1 orally every 6 hours as needed for nausea and vomiting. Dispense ten (10). No refill. Substitution is permissible. Flagyl 500 mg: Take 1 tablet orally every 12 hours for 7 days. No refill. Substitution is permissible Follow-up: Follow up with your doctor in about one day. Call for an appointment. ADDITIONAL INFORMATION Alcohol Withdrawal Alcohol withdrawal symptoms occur if you have been drinking steadily for at least several days, and your body gets used to the effect of alcohol. When you suddenly stop drinking (or, even just cut down your daily intake but continue to drink), you may develop alcohol withdrawal, also called the The usual symptoms last 3-4 days and include nervousness, shakiness, nausea, sweating, sleeplessness. In severe cases hallucinations (seeing things that are not there) and seizures can occur. Home Care: You will need plenty of rest and fluids over the next several days. Eat regular meals. Of course, do not drink any more alcohol. During this time, it is best that you stay with family or friends who can help and support you. You can also admit yourself to a residential detox program. Do not drive until all symptoms are gone and you are feeling better. If you were given sedative medication to reduce your symptoms, do not take it more often than prescribed and never take it with alcohol. Follow Up: Once you have gone through the withdrawal symptoms, you have fought half of the brown. To avoid the risk of returning to your previous drinking pattern, it is essential that you get follow-up support and treatment. Alcoholics Anonymous offers support through a self-help fellowship. There are no dues or fees. See the Yellow Pages and call for time and place of meetings. www.aa.org [employer] offers support to families of alcohol users. 605.852.1318 www.al-anon.org National [place] On Alcoholism And Drug Dependence 149-280-0410 www.ncadd.org Residential alcohol detox programs are available. Check the Yellow Pages under Drug Abuse & Treatment Centers. Get Prompt Medical Attention if any of the following occur: Severe shakiness Hallucinations Seizure Fever over 100.5 F (38.0 C) oral Headache, confusion, extreme drowsiness, inability to awaken Increasing upper abdominal pain Repeated vomiting or vomiting blood Chlordiazepoxide Hydrochloride Oral capsule What is this medicine? CHLORDIAZEPOXIDE (klor dye az e POX peter) is a benzodiazepine. It is used to treat anxiety and alcohol withdrawal. How should I use this medicine? Take this medicine by mouth with a glass of water. Follow the directions on the prescription label. If this medicine upsets your stomach, take it with food or milk. Take your doses at regular intervals. Do not take your medicine more often than directed. If you have been taking this medicine regularly for some time, do not suddenly stop taking it. You must gradually reduce the dose or you may get severe side effects. Ask your doctor or health healthcare liaison for advice. Even after you stop taking this medicine it can still affect your body for several days. Talk to your hairspring staker regarding the use of this medicine in children. Special care may be needed. While this drug may be prescribed for children as young as 6 years for selected conditions, precautions do apply. What side effects may I notice from receiving this medicine? Side effects that you should report to your doctor or health healthcare liaison as soon as possible: allergic reactions like skin rash, itching or hives, swelling of the face, lips, or tongue confusion, depression feeling faint or lightheaded, falls mood changes, excitability or aggressive behavior muscle cramps problems with balance, talking, walking restlessness tremors unusually weak or tired Side effects that usually do not require medical attention (report to your doctor or health healthcare liaison if they continue or are bothersome): change in sex drive or performance constipation drowsiness menstrual changes nausea, vomiting What may interact with this medicine? cimetidine medicines for anxiety or sleeping problems, like alprazolam, lorazepam, or triazolam medicines for depression, mental problems or psychiatric disturbances medicines for HIV infection or AIDS prescription pain medicines rifampin, rifapentine, or rifabutin some medicines for seizures like carbamazepine, phenobarbital, phenytoin, or primidone What if I miss a dose? If you miss a dose, take it as soon as you can. If it is almost time for your next dose, take only that dose. Do not take double or extra doses. Where should I keep my medicine? Keep out of the reach of children. This medicine can be abused. Keep your medicine in a safe place to protect it from theft. Do not share this medicine with anyone. Selling or giving away this medicine is dangerous and against the law. Store at room temperature between 15 and 30 degrees C (59 and 86 degrees F). Throw away any unused medicine after the expiration date. What should I tell my health care provider before I take this medicine? They need to know if you have any of these conditions: an alcohol or drug abuse problem kidney or liver disease suicidal thoughts an unusual or allergic reaction to chlordiazepoxide, other benzodiazepines, foods, dyes, or preservatives or trying to get breast-feeding What should I watch for while using this medicine? Visit your doctor or health healthcare liaison for regular checks on your progress. Your body can become dependent on this medicine. Ask your doctor or health healthcare liaison if you still need to take it. You may get drowsy or dizzy. Do not drive, use machinery, or do anything that needs mental alertness until you know how this medicine affects you. To reduce the risk of dizzy and fainting spells, do not stand or sit up quickly, especially if you are an older patient. Alcohol may increase dizziness and drowsiness. Avoid alcoholic drinks. Do not treat yourself for coughs, colds or allergies without asking your doctor or health healthcare liaison for advice. Some ingredients can increase possible side effects. Ondansetron Oral disintegrating tablet What is this medicine? ONDANSETRON (on CHAR se aurora) is used to treat nausea and vomiting caused by chemotherapy. It is also used to prevent or treat nausea and vomiting after surgery. How should I use this medicine? These tablets are made to dissolve in the mouth. Do not try to push the tablet through the foil backing. With dry hands, peel away the foil backing and gently remove the tablet. Place the tablet in the mouth and allow it to dissolve, then swallow. While you may take these tablets with water, it is not necessary to do so. Talk to your hairspring staker regarding the use of this medicine in children. Special care may be needed. What side effects may I notice from receiving this medicine? Side effects that you should report to your doctor or health healthcare liaison as soon as possible: allergic reactions like skin rash, itching or hives, swelling of the face, lips, or tongue breathing problems dizziness fast or irregular heartbeat feeling faint or lightheaded, falls fever and chills swelling of the hands and feet tightness in the chest Side effects that usually do not require medical attention (report to your doctor or health healthcare liaison if they continue or are bothersome): constipation or diarrhea headache What may interact with this medicine? Do not take this medicine with any of the following medications: -apomorphine -cisapride -dofetilide -dronedarone -pimozide -thioridazine -ziprasidone This medicine may also interact with the following medications: -carbamazepine -phenytoin -rifampicin -tramadol -other medicines that prolong the QT interval (cause an abnormal heart rhythm) What if I miss a dose? If you miss a dose, take it as soon as you can. If it is almost time for your next dose, take only that dose. Do not take double or extra doses. Where should I keep my medicine? Keep out of the reach of children. Store between 2 and 30 degrees C (36 and 86 degrees F). Throw away any unused medicine after the expiration date. What should I tell my health care provider before I take this medicine? They need to know if you have any of these conditions: heart disease history of irregular heartbeat liver disease low levels of magnesium or potassium in the blood an unusual or allergic reaction to ondansetron, granisetron, other medicines, foods, dyes, or preservatives or trying to get breast-feeding What should I watch for while using this medicine? Check with your doctor or health healthcare liaison as soon as you can if you have any sign of an allergic reaction. Metronidazole Oral tablet What is this medicine? METRONIDAZOLE (me troe NI da zole) is an antiinfective. It is used to treat certain kinds of bacterial and protozoal infections. It will not work for colds, flu, or other viral infections. How should I use this medicine? Take this medicine by mouth with a full glass of water. Follow the directions on the prescription label. Take your medicine at regular intervals. Do not take your medicine more often than directed. Take all of your medicine as directed even if you think you are better. Do not skip doses or stop your medicine early. Talk to your hairspring staker regarding the use of this medicine in children. Special care may be needed. What side effects may I notice from receiving this medicine? Side effects that you should report to your doctor or health healthcare liaison as soon as possible: allergic reactions like skin rash or hives, swelling of the face, lips, or tongue confusion, clumsiness difficulty speaking discolored or sore mouth dizziness fever, infection numbness, tingling, pain or weakness in the hands or feet trouble passing urine or change in the amount of urine redness, blistering, peeling or loosening of the skin, including inside the mouth seizures unusually weak or tired vaginal irritation, dryness, or discharge Side effects that usually do not require medical attention (report to your doctor or health healthcare liaison if they continue or are bothersome): diarrhea headache irritability metallic taste nausea stomach pain or cramps trouble sleeping What may interact with this medicine? Do not take this medicine with any of the following medications: alcohol or any product that contains alcohol amprenavir oral solution cisapride disulfiram dofetilide dronedarone paclitaxel injection pimozide ritonavir oral solution sertraline oral solution sulfamethoxazole-trimethoprim injection thioridazine ziprasidone This medicine may also interact with the following medications: cimetidine lithium other medicines that prolong the QT interval (cause an abnormal heart rhythm) phenobarbital phenytoin warfarin What if I miss a dose? If you miss a dose, take it as soon as you can. If it is almost time for your next dose, take only that dose. Do not take double or extra doses. Where should I keep my medicine? Keep out of the reach of children. Store at room temperature below 25 degrees C (77 degrees F). Protect from light. Keep container tightly closed. Throw away any unused medicine after the expiration date. What should I tell my health care provider before I take this medicine? They need to know if you have any of these conditions: anemia or other blood disorders disease of the nervous system fungal or yeast infection if you drink alcohol containing drinks liver disease seizures an unusual or allergic reaction to metronidazole, or other medicines, foods, dyes, or preservatives or trying to get breast-feeding What should I watch for while using this medicine? Tell your doctor or health healthcare liaison if your symptoms do not improve or if they get worse. You may get drowsy or dizzy. Do not drive, use machinery, or do anything that needs mental alertness until you know how this medicine affects you. Do not stand or sit up quickly, especially if you are an older patient. This reduces the risk of dizzy or fainting spells. Avoid alcoholic drinks while you are taking this medicine and for three days afterward. Alcohol may make you feel dizzy, sick, or flushed. If you are being treated for a sexually transmitted disease, avoid sexual contact until you have finished your treatment. Your sexual partner may also need treatment. You have been given the following additional information: Alcohol Withdrawal Chlordiazepoxide Hydrochloride Oral capsule Ondansetron Oral disintegrating tablet Metronidazole Oral tablet (Electronically signed by Carlos A Deluna Dr. 08/18/2016 4:15)
== END 2016-08-18 04:25 | disposition home or self-care (01) ==
LOC: ED SRH 20:33
DX: F10.231 Alcohol dependence with withdrawal delirium (principal); R94.5 Abnormal results of liver function studies; F17.210 Nicotine dependence, cigarettes, uncomplicated
CPT/HCPCS: 90004; 90100; 92010; 92760; 92761; 92762; 92763; 92764; 92765; 92766; 92767; 93070; 95059

== ENCOUNTER 2016-10-23 12:31 | Emergency (ER) | payer OTHER ==
--- NOTE | 2016-10-23 14:15 | ED ORDER SUMMARY ---
..... Patient: WILLIAM LEONARD OrderSheet [facility] VisitID: [id number] [address] [place] [address] 31y, F Registration Date/Time: 10/23/2016 ORDER SHEET Weight: 81.6 kg (stated) Allergies: No Known Drug Allergy GENERAL ORDERS: CBC w Diff Urgent (13:14 10/23/2016 EKoroleva P.A.-C) (Ack 13:18 LTapper) (13:46 SRoberts R.N.) CMP Urgent (13:14 10/23/2016 EKoroleva P.A.-C) (Ack 13:18 LTapper) (13:46 SRoberts R.N.) UA-Culture if indicated Urgent (13:14 10/23/2016 EKoroleva P.A.-C) (Ack 13:18 LTapper) (13:46 SRoberts R.N.) Urine Urgent (13:14 10/23/2016 EKoroleva P.A.-C) (Ack 13:18 LTapper) (13:46 SRoberts R.N.) Urine Drug Screen Urgent (13:14 10/23/2016 EKoroleva P.A.-C) (Ack 13:18 LTapper) (13:46 SRoberts R.N.) Ethyl Alcohol Urgent (13:14 10/23/2016 EKoroleva P.A.-C) (Ack 13:18 LTapper) (13:46 SRoberts R.N.) Lipase Urgent (13:42 10/23/2016 EKoroleva P.A.-C) (Ack 13:43 LTapper) (13:46 SRoberts R.N.) MEDICATION ORDERS: Phenergan IV 12.5 mg (HIGH ALERT MEDICATION, NOW) (13:14 10/23/2016 EKoroleva P.A.-C) (13:54 JRomanelli R.N.) IV FLUIDS: IV NS with Folic Acid 1 mg/L, Multivitamin Concentrate Intravenous 1 amp/L, Thiamine HCl 100 mg/L: initial bolus 1000 mL (1000 mL/hr), then 1000 mL/hr for X1 (NOW); Justin (13:13 10/23/2016 George Palacio) (14:26 Luis Gill) ORDER SHEET NOTES: [Electronically signed by Adri Roper P.A.-C (14:38 10/23/2016)] [Electronically signed by Fabricio Laguna R.N. (20:12 10/23/2016)] [Electronically locked/signed by Fabricio Laguna R.N. (20:12 10/23/2016)]
--- NOTE | 2016-10-23 14:15 | ED CLINICAL REPORT ---
Clinical Report - Physicians/Mid Levels [facility] [address] [place] [address] 10/23/2016 12:33 [id number] Time Seen: 13:30 Oct 23 2016. Arrived- By private vehicle. Historian- patient. HISTORY OF PRESENT ILLNESS Chief Complaint: "GOT THE SHAKES". Wants to stop drinking. Substances abused: substance abuse etoh for off/ on 1 year. The patient has had vomiting and abdominal pain. No seizure, delusions, hallucinations or suicidal thoughts. Not confused or paranoid. Has not been depressed. had clean sober moment in august, then relapsed for last 30 days or so, consistent drinking daily 1/5th a day or so, last drink 9 am, reports n/v, some weakness. NO fevers. No diarrhea. Wishes to stop drinking. WIll be staying with family. No injuries noted. Similar symptoms previously: REVIEW OF SYSTEMS No chest pain, skin abscess or enlarged lymph nodes. All systems otherwise negative, except as recorded above. SOCIAL HISTORY Smoker- current status unknown. Alcohol use. No drug use. Has social support. Has place to stay. ADDITIONAL NOTES The nursing notes have been reviewed. PHYSICAL EXAM Vital Signs: 10/23/2016 12:58 BP: 118/79. HR: 97. RR: 16. O2 saturation: 98%. Temp: 98.6 F. Pain level now: 2/10. Appearance: Alert. Head: Head atraumatic. Eyes: Pupils equal, round and reactive to light. No abnormal funduscopic findings. ENT: The mucous membranes are not dry. No tonsillar exudate. CVS: Normal heart rate and rhythm. Heart sounds normal. Respiratory: No respiratory distress. Back: Normal inspection. No CVA tenderness. Neuro: Alert. Oriented X 3. Cranial nerves normal (as tested). No facial weakness. No cerebellar findings. No abnormal finger-nose test. No motor deficit. LABS, X-RAYS, AND EKG Laboratory Tests: UA-Culture if indicated: (VERN: 10/23/2016 13:25) ( MsgRcvd 10/23/2016 14:04) Final results Test Result Flag Units (Reference) URINE COLOR YELLOW URINE APPEARANCE CLOUDY URINE GLUCOSE NEGATIVE (NEGATIVE) URINE BILIRUBIN NEGATIVE (NEGATIVE) URINE KETONE NEGATIVE (NEGATIVE) URINE SPECIFIC GRAVITY <= 1.005 L (1.010-1.030) URINE PH 6.0 (5.0-8.0) URINE PROTEIN NEGATIVE (NEGATIVE) URINE UROBILINOGEN 0.2 EU/dL (0.2-1.0) URINE NITRITE NEGATIVE (NEGATIVE) URINE BLOOD NEGATIVE (NEGATIVE) URINE LEUK ESTERASE NEGATIVE (NEGATIVE) URINE RBC NONE SEEN rbc/hpf (0-1) URINE WBC 1-3 wbc/hpf (0-1) URINE EPITHELIAL CELLS >15 EPI/hpf (0-5) URINE BACTERIA FEW (1+) (NONE SEEN) URINE COMMENT CULT NOT INDICATED URINE CULTURES ARE SET-UP BASED ON THE FOLLOWING CRITERIA:POSITIVE NITRITEPOSITIVE LEUKOCYTE ESTERASEGREATER THAN 10 WHITE BLOOD CELLSMODERATE (2+) OR GREATER BACTERIA Urine: (VERN: 10/23/2016 13:25) ( [facility] 10/23/2016 13:56) Final results Test Result Flag Units (Reference) URINE NEGATIVE CBC w Diff: (VERN: 10/23/2016 13:35) ( [facility] 10/23/2016 13:56) Final results Test Result Flag Units (Reference) WHITE BLOOD COUNT 5.5 K/uL (4.5-11.5) RED BLOOD COUNT 3.70 L M/uL (4.00-5.20) HEMOGLOBIN 13.5 gm/dL (12.0-16.0) HEMATOCRIT 39.6 % (36.0-46.0) MEAN CELL VOLUME 107 H fL (80-100) MEAN CORPUSCULAR HGB 37 H pg (26-34) MEAN CORPUSCULAR HGB CONC 34 g/dL (31-37) RED CELL DISTRIBUTION WIDTH 16.3 H % (11.6-14.8) PLATELET COUNT 227 K/uL (150-400) NEUTROPHIL % 54.3 % (50-75) LYMPH % 31.6 % (25-40) MONO % 12.0 % (3-14) EOSINOPHIL % 1.6 % (0-4) BASOPHIL % 0.5 % (0-2) Urine Drug Screen: (VERN: 10/23/2016 13:25) ( MsgRcvd 10/23/2016 14:11) Final results Test Result Flag Units (Reference) AMPHETAMINE/METHAMPHETAMINE NEGATIVE (NEGATIVE) BARBITURATE NEGATIVE (NEGATIVE) BENZODIAZEPINE NEGATIVE (NEGATIVE) CANNABINOID NEGATIVE (NEGATIVE) COCAINE NEGATIVE (NEGATIVE) ECSTASY NEGATIVE (NEGATIVE) METHADONE NEGATIVE (NEGATIVE) OPIATE NEGATIVE (NEGATIVE) The urine drug screen is a qualitative screening test fordrug overdose and abuse. All screen results should beconsidered as presumptive.Drugs screened for are as follows:BenzodiazepinesCocaineAmphetamines/MetamphetaminesTHC (Tetrahydrocannabinol)OpiatesBarbituratesEcstasyMethadonePositive results are unconfirmed. For confirmation, notifythe lab for the specimen to be sent to the reference lab.All confirmations must be performed by a differentmethodology.The ingestion of natural herbal and plant productscontaining Ephedra/Ephedra metabolites can produce in urineone or more substances capable of cross reacting withamphetamine/methamphetamine immunoassays. These testsprovide a preliminary result only. A more specificalternative chemical method must be used to obtain aconfirmed analytical result. CMP: (VERN: 10/23/2016 13:35) ( MsgRcvd 10/23/2016 14:08) Final results Test Result Flag Units (Reference) GLUCOSE 102 mg/dL (70-110) BUN 8 mg/dL (7-18) CREATININE 0.7 mg/dL (0.6-1.3) Estimated GFR >60 mL/min Estimated GFR- >60 mL/min Note: Persistent reduction over 3 months in eGFR<60 mL/min/1.73 m2 defines CKD. Patients with eGFR values>=60 mL/min/1.73 m2 may also have CKD if evidence ofpersistent proteinuria. Additional information may be foundat www.kidney.org. SODIUM 141 mmol/L (136-145) POTASSIUM 3.7 mmol/L (3.5-5.1) CHLORIDE 104 mmol/L (98-107) CARBON DIOXIDE 26 mmol/L (21-32) CALCIUM 8.8 mg/dL (8.5-10.1) TOTAL PROTEIN 7.5 g/dL (6.4-8.2) ALBUMIN 4.1 g/dL (3.3-5.0) BILIRUBIN, TOTAL 0.6 mg/dL (0.0-1.0) ALKALINE PHOSPHATASE 71 U/L (46-116) AST (SGOT) 112 H U/L (15-37) ALT (SGPT) 73 U/L (12-78) LIPASE 500 H U/L (73-393) ETHYL ALCOHOL 194 H mg/dL (3-10) . PROGRESS AND PROCEDURES Course of Care: pt stable in er, no signs/ sx, given IV banana bag, patient given anti-emetic improvement of sx. NO neuro signs/ sx. Will rx her for benzo, she is staying with family here and seem rather caring for her. No h/o seizures. Slight elevation of lipase, likely from etoh, elevation of lft, likely chronic due to etoh. abd otherwise benign, non tender, no signs of acute surgical abdomen. 10/23/2016 12:58 BP: 118/79. HR: 97. RR: 16. O2 saturation: 98%. Temp: 98.6 F. Pain level now: 2/10. Patient is stable. Physical exam findings are improved. Symptoms better. Patient/family counseled. Disposition: Discharged. CLINICAL IMPRESSION Substance abuse problems: abuse of alcohol. Substance dependence problems: dependence on alcohol. Elevated LFT. INSTRUCTIONS ([facility] [address] [place] [address] ). Prescription Medications: Zofran (orally disintegrating tablets) 4 mg: take 1 orally every 6 hours for 3 days as needed for nausea. Dispense ten (10). No refill. Substitution is permissible. Phenergan 12.5 mg tablets: take 1 orally every 6 hours as needed for nausea or vomiting. Dispense ten (10) Chlordiazepoxide 25 mg: take 1 orally every 4 hours for 5 days. Dispense thirty (30). No refill. Zofran ODT 4 mg: take 1 orally every 6 hours as needed for nausea and vomiting. Dispense ten (10). No refill. Substitution is permissible. Follow-up: Follow up with a specialist in three days. (Electronically signed by Adri Roper P.A.-C 10/23/2016 14:38)
--- NOTE | 2016-10-23 14:15 | ED CLINICAL REPORT ---
Clinical Report - Physicians/Mid Levels [facility] [address] [place] [address] 10/23/2016 12:33 Patient: WILLIAM LEONARD [facility] [id number] Time Seen: 13:30 Oct 23 2016. Arrived- By private vehicle. Historian- patient. HISTORY OF PRESENT ILLNESS Chief Complaint: "GOT THE SHAKES". Wants to stop drinking. Substances abused: substance abuse etoh for off/ on 1 year. The patient has had vomiting and abdominal pain. No seizure, delusions, hallucinations or suicidal thoughts. Not confused or paranoid. Has not been depressed. had clean sober moment in august, then relapsed for last 30 days or so, consistent drinking daily 1/5th a day or so, last drink 9 am, reports n/v, some weakness. NO fevers. No diarrhea. Wishes to stop drinking. WIll be staying with family. No injuries noted. Similar symptoms previously: REVIEW OF SYSTEMS No chest pain, skin abscess or enlarged lymph nodes. All systems otherwise negative, except as recorded above. SOCIAL HISTORY Smoker- current status unknown. Alcohol use. No drug use. Has social support. Has place to stay. ADDITIONAL NOTES The nursing notes have been reviewed. PHYSICAL EXAM Vital Signs: 10/23/2016 12:58 BP: 118/79. HR: 97. RR: 16. O2 saturation: 98%. Temp: 98.6 F. Pain level now: 2/10. Appearance: Alert. Head: Head atraumatic. Eyes: Pupils equal, round and reactive to light. No abnormal funduscopic findings. ENT: The mucous membranes are not dry. No tonsillar exudate. CVS: Normal heart rate and rhythm. Heart sounds normal. Respiratory: No respiratory distress. Back: Normal inspection. No CVA tenderness. Neuro: Alert. Oriented X 3. Cranial nerves normal (as tested). No facial weakness. No cerebellar findings. No abnormal finger-nose test. No motor deficit. LABS, X-RAYS, AND EKG Laboratory Tests: UA-Culture if indicated: (VERN: 10/23/2016 13:25) ( MsgRcvd 10/23/2016 14:04) Final results Test Result Flag Units (Reference) URINE COLOR YELLOW URINE APPEARANCE CLOUDY URINE GLUCOSE NEGATIVE (NEGATIVE) URINE BILIRUBIN NEGATIVE (NEGATIVE) URINE KETONE NEGATIVE (NEGATIVE) URINE SPECIFIC GRAVITY <= 1.005 L (1.010-1.030) URINE PH 6.0 (5.0-8.0) URINE PROTEIN NEGATIVE (NEGATIVE) URINE UROBILINOGEN 0.2 EU/dL (0.2-1.0) URINE NITRITE NEGATIVE (NEGATIVE) URINE BLOOD NEGATIVE (NEGATIVE) URINE LEUK ESTERASE NEGATIVE (NEGATIVE) URINE RBC NONE SEEN rbc/hpf (0-1) URINE WBC 1-3 wbc/hpf (0-1) URINE EPITHELIAL CELLS >15 EPI/hpf (0-5) URINE BACTERIA FEW (1+) (NONE SEEN) URINE COMMENT CULT NOT INDICATED URINE CULTURES ARE SET-UP BASED ON THE FOLLOWING CRITERIA:POSITIVE NITRITEPOSITIVE LEUKOCYTE ESTERASEGREATER THAN 10 WHITE BLOOD CELLSMODERATE (2+) OR GREATER BACTERIA Urine: (VERN: 10/23/2016 13:25) ( [facility] 10/23/2016 13:56) Final results Test Result Flag Units (Reference) URINE NEGATIVE CBC w Diff: (VERN: 10/23/2016 13:35) ( [facility] 10/23/2016 13:56) Final results Test Result Flag Units (Reference) WHITE BLOOD COUNT 5.5 K/uL (4.5-11.5) RED BLOOD COUNT 3.70 L M/uL (4.00-5.20) HEMOGLOBIN 13.5 gm/dL (12.0-16.0) HEMATOCRIT 39.6 % (36.0-46.0) MEAN CELL VOLUME 107 H fL (80-100) MEAN CORPUSCULAR HGB 37 H pg (26-34) MEAN CORPUSCULAR HGB CONC 34 g/dL (31-37) RED CELL DISTRIBUTION WIDTH 16.3 H % (11.6-14.8) PLATELET COUNT 227 K/uL (150-400) NEUTROPHIL % 54.3 % (50-75) LYMPH % 31.6 % (25-40) MONO % 12.0 % (3-14) EOSINOPHIL % 1.6 % (0-4) BASOPHIL % 0.5 % (0-2) Urine Drug Screen: (VERN: 10/23/2016 13:25) ( MsgRcvd 10/23/2016 14:11) Final results Test Result Flag Units (Reference) AMPHETAMINE/METHAMPHETAMINE NEGATIVE (NEGATIVE) BARBITURATE NEGATIVE (NEGATIVE) BENZODIAZEPINE NEGATIVE (NEGATIVE) CANNABINOID NEGATIVE (NEGATIVE) COCAINE NEGATIVE (NEGATIVE) ECSTASY NEGATIVE (NEGATIVE) METHADONE NEGATIVE (NEGATIVE) OPIATE NEGATIVE (NEGATIVE) The urine drug screen is a qualitative screening test fordrug overdose and abuse. All screen results should beconsidered as presumptive.Drugs screened for are as follows:BenzodiazepinesCocaineAmphetamines/MetamphetaminesTHC (Tetrahydrocannabinol)OpiatesBarbituratesEcstasyMethadonePositive results are unconfirmed. For confirmation, notifythe lab for the specimen to be sent to the reference lab.All confirmations must be performed by a differentmethodology.The ingestion of natural herbal and plant productscontaining Ephedra/Ephedra metabolites can produce in urineone or more substances capable of cross reacting withamphetamine/methamphetamine immunoassays. These testsprovide a preliminary result only. A more specificalternative chemical method must be used to obtain aconfirmed analytical result. CMP: (VERN: 10/23/2016 13:35) ( MsgRcvd 10/23/2016 14:08) Final results Test Result Flag Units (Reference) GLUCOSE 102 mg/dL (70-110) BUN 8 mg/dL (7-18) CREATININE 0.7 mg/dL (0.6-1.3) Estimated GFR >60 mL/min Estimated GFR- >60 mL/min Note: Persistent reduction over 3 months in eGFR<60 mL/min/1.73 m2 defines CKD. Patients with eGFR values>=60 mL/min/1.73 m2 may also have CKD if evidence ofpersistent proteinuria. Additional information may be foundat www.kidney.org. SODIUM 141 mmol/L (136-145) POTASSIUM 3.7 mmol/L (3.5-5.1) CHLORIDE 104 mmol/L (98-107) CARBON DIOXIDE 26 mmol/L (21-32) CALCIUM 8.8 mg/dL (8.5-10.1) TOTAL PROTEIN 7.5 g/dL (6.4-8.2) ALBUMIN 4.1 g/dL (3.3-5.0) BILIRUBIN, TOTAL 0.6 mg/dL (0.0-1.0) ALKALINE PHOSPHATASE 71 U/L (46-116) AST (SGOT) 112 H U/L (15-37) ALT (SGPT) 73 U/L (12-78) LIPASE 500 H U/L (73-393) ETHYL ALCOHOL 194 H mg/dL (3-10) . PROGRESS AND PROCEDURES Course of Care: pt stable in er, no signs/ sx, given IV banana bag, patient given anti-emetic improvement of sx. NO neuro signs/ sx. Will rx her for benzo, she is staying with family here and seem rather caring for her. No h/o seizures. Slight elevation of lipase, likely from etoh, elevation of lft, likely chronic due to etoh. abd otherwise benign, non tender, no signs of acute surgical abdomen. 10/23/2016 12:58 BP: 118/79. HR: 97. RR: 16. O2 saturation: 98%. Temp: 98.6 F. Pain level now: 2/10. Patient is stable. Physical exam findings are improved. Symptoms better. Patient/family counseled. Disposition: Discharged. CLINICAL IMPRESSION Substance abuse problems: abuse of alcohol. Substance dependence problems: dependence on alcohol. Elevated LFT. INSTRUCTIONS ([facility] [address] [place] [address] ). Prescription Medications: Zofran (orally disintegrating tablets) 4 mg: take 1 orally every 6 hours for 3 days as needed for nausea. Dispense ten (10). No refill. Substitution is permissible. Phenergan 12.5 mg tablets: take 1 orally every 6 hours as needed for nausea or vomiting. Dispense ten (10) Chlordiazepoxide 25 mg: take 1 orally every 4 hours for 5 days. Dispense thirty (30). No refill. Zofran ODT 4 mg: take 1 orally every 6 hours as needed for nausea and vomiting. Dispense ten (10). No refill. Substitution is permissible. Follow-up: Follow up with a specialist in three days. (Electronically signed by Adri Roper P.A.-C 10/23/2016 14:38)
--- NOTE | 2016-10-23 14:15 | ED NURSING NOTES ---
Clinical Report - Nurses [facility] [address] [place] [address] 10/23/2016 12:33 Patient: WILLIAM LEONARD TRIAGE Triage time 12:57 Oct 23 2016. Acuity: LEVEL 3. Chief Complaint: (Acohol Withdrawal/DT's). Alert. HERMELINDO COMA SCORE: [place] Coma Scale: 15- eyes open spontaneously (4); best verbal response- oriented x 4 (5); best motor response- obeys commands (6). --13:08 Fabricio Laguna R.N. 12:58 10/23/16. BP: 118/79. HR: 97. RR: 16. O2 saturation: 98% on room air. Temp: 98.6 F. Pain level now: 09/24. Additional comments: Chronic dgenerative disc disease. --13:08 Fabricio Laguna R.N. Weight: 81.6 kg stated. Height/Length: 68 inches Per Patient. BMI: 27.4. --13:02 Fabricio Laguna R.N. Medications None. --13:00 Fabricio Laguna R.N. Allergies No Known Drug Allergy. --13:00 Fabricio Laguna R.N. History Arrived by private vehicle. Historian: patient. Accompanied by family and sister. Primary physician (none). ( Pt requesting help for Alcohol Withdrawal/DT's. Got sober 08/18/16 for 40 days and then resumed alcohol drinking.). Onset. (about 1 year ago). Treatment QUARRY BOSS: None. PAST MEDICAL HX: Heart disease: (tachycardia). Immunizations: status is unknown. Last normal menstrual period was 8 weeks ago. SOCIAL HX: Heavy tobacco smoker- 1 pack per day. Alcohol use; consumes liquor daily. No drug use. No infectious disease exposure. ABUSE ASSESSMENT: No report of abuse. FALL RISK ASSESSMENT: Fall risk assessment completed. No fall risk identified. NUTRITIONAL RISK ASSESSMENT: The nutritional risk assessment revealed no deficiencies. FUNCTIONAL ASSESSMENT: Functional assessment: no impairments noted. LEARNING NEEDS ASSESSMENT: The learning needs assessment revealed no barriers. SKIN INTEGRITY ASSESSMENT: Skin integrity risk assessment completed. No skin integrity risk identified. --13:08 Fabricio Laguna R.N. PROBLEMS: Abnormal Liver Function Test. Dehydration. Hepatitis. Sinus Tachycardia. Alcohol Withdrawal. Lumbar Strain. Insomnia. Back Pain. Immunizations. URI. Sinusitis. Allergic Rhinitis. Bronchitis. LNMP - Last Normal Menstrual Period. --13:01 Fabricio Laguna R.N. ADDITIONAL SURGERIES: Dental Surgery. Tonsillectomy. --13:07 Fabricio Laguna R.N. Interventions ID band on patient. To treatment room. --13:08 Fabricio Laguna R.N. PHYSICAL ASSESSMENT Ambulatory to room. GENERAL / NEURO / PSYCH: Alert. Oriented X 4. HEENT: No facial asymmetry noted. Mucous membranes are pink. RESPIRATORY: Respirations not labored. CVS: Cardiac rhythm: (RRR). GI / : Abdomen soft. SKIN: Skin intact. Skin is warm and dry. Normal skin turgor. --13:09 Fabricio Laguna R.N. NURSING PROGRESS NOTES Patient gowned. Reassurance given to the patient and patient's family. Patient identifiers checked. Call light placed in reach. Side rails up x 1. Bed placed in lowest position. Brakes of bed on. Patient ready for evaluation- chart flagged and ED physician notified. --13:10 Fabricio Laguna R.N. 13:44 10/23/2016 Site #1 started via IV in the right antecubital space with an 20g angiocath, with aseptic technique and good blood return; one attempt. Blood drawn: rainbow set. Labeled in the presence of the patient and sent to the lab. Saline lock flushed with 10 mL saline. --13:54 Fabricio Laguna R.N. 13:44 10/23/2016 PHENERGAN (Promethazine HCl) IVP 12.5 mg given over 2 minute(s) via site #1. --13:54 Fabricio Laguna R.N. 14:21 10/23/2016 Started bag #1 1000 mL IV Fluids IV NS (Saline); at 1000 mL/hr over 60 minute(s) via site #1 via IV pump. Allergies verified and confirmed 5 rights. IV patency established. IV site checked: no pain, redness, or swelling. IV flushed thoroughly pre- and post-medication administration. --14:26 Fabricio Laguna R.N. 15:03 10/23/16. BP: 107/80. HR: 95. RR: 16. O2 saturation: 95% on room air. --15:05 Fabricio Laguna R.N. 15:17 10/23/16. BP: 104/66 (regular adult cuff) taken on the left arm, via an automated monitor, while sitting. HR: 89 (irregular). O2 saturation: 100% on room air. --15:18 Xena Arce 15:20 10/23/2016 IV Fluids IV NS Discontinued: bag #1 infused. Total amount infused: 1000 mL. IV patency established. IV site checked: no pain, redness, or swelling. IV flushed thoroughly. --20:11 Fabricio Laguna R.N. 15:30 10/23/2016 Site #1 removed upon discharge. Catheter intact. Pressure dressing, bandaid and bandage applied. --20:11 Fabricio Laguna R.N. DISPOSITION / DISCHARGE 15:30 10/23/16. BP: 105/63. HR: 97. RR: 18. O2 saturation: 97% on room air. Temp: 99 F (oral). Pain level now: 09/24. --20:07 Fabricio Laguna R.N. Departure time: 1540. --20:08 Fabricio Laguna R.N. 15:40. No learning barriers present. Discharge instructions provided and reviewed with the patient. Reviewed medication(s) (prescription given to pt). Reviewed referral to family practice for followup. Patient verbalized understanding. Written instructions provided in Greenlandic. The patient was discharged by the physician industrial hire sales assistant. She was discharged home and accompanied by family. She left the Emergency Department ambulatory and via private vehicle. Family member driving. --20:09 Fabricio Laguna R.N. Locked/Released at 10/23/2016 20:12 by Fabricio Laguna R.N.
--- NOTE | 2016-10-23 14:15 | ED ORDER SUMMARY ---
..... Patient: WILLIAM LEONARD OrderSheet [facility] VisitID: [id number] [address] [place] [address] 31y, F Registration Date/Time: 10/23/2016 ORDER SHEET Weight: 81.6 kg (stated) Allergies: No Known Drug Allergy GENERAL ORDERS: CBC w Diff Urgent (13:14 10/23/2016 EKoroleva P.A.-C) (Ack 13:18 LTapper) (13:46 SRoberts R.N.) CMP Urgent (13:14 10/23/2016 EKoroleva P.A.-C) (Ack 13:18 LTapper) (13:46 SRoberts R.N.) UA-Culture if indicated Urgent (13:14 10/23/2016 EKoroleva P.A.-C) (Ack 13:18 LTapper) (13:46 SRoberts R.N.) Urine Urgent (13:14 10/23/2016 EKoroleva P.A.-C) (Ack 13:18 LTapper) (13:46 SRoberts R.N.) Urine Drug Screen Urgent (13:14 10/23/2016 EKoroleva P.A.-C) (Ack 13:18 LTapper) (13:46 SRoberts R.N.) Ethyl Alcohol Urgent (13:14 10/23/2016 EKoroleva P.A.-C) (Ack 13:18 LTapper) (13:46 SRoberts R.N.) Lipase Urgent (13:42 10/23/2016 EKoroleva P.A.-C) (Ack 13:43 LTapper) (13:46 SRoberts R.N.) MEDICATION ORDERS: Phenergan IV 12.5 mg (HIGH ALERT MEDICATION, NOW) (13:14 10/23/2016 EKoroleva P.A.-C) (13:54 JRomanelli R.N.) IV FLUIDS: IV NS with Folic Acid 1 mg/L, Multivitamin Concentrate Intravenous 1 amp/L, Thiamine HCl 100 mg/L: initial bolus 1000 mL (1000 mL/hr), then 1000 mL/hr for X1 (NOW); Justin (13:13 10/23/2016 George Palacio) (14:26 Luis Gill) ORDER SHEET NOTES: [Electronically signed by Adri Roper P.A.-C (14:38 10/23/2016)] [Electronically signed by Fabricio Laguna R.N. (20:12 10/23/2016)] [Electronically locked/signed by Fabricio Laguna R.N. (20:12 10/23/2016)]
--- NOTE | 2016-10-23 14:15 | ED NURSING NOTES ---
Clinical Report - Nurses [facility] [address] [place] [address] 10/23/2016 12:33 Patient: WILLIAM LEONARD TRIAGE Triage time 12:57 Oct 23 2016. Acuity: LEVEL 3. Chief Complaint: (Acohol Withdrawal/DT's). Alert. HERMELINDO COMA SCORE: [place] Coma Scale: 15- eyes open spontaneously (4); best verbal response- oriented x 4 (5); best motor response- obeys commands (6). --13:08 Fabricio Laguna R.N. 12:58 10/23/16. BP: 118/79. HR: 97. RR: 16. O2 saturation: 98% on room air. Temp: 98.6 F. Pain level now: 09/24. Additional comments: Chronic dgenerative disc disease. --13:08 Fabricio Laguna R.N. Weight: 81.6 kg stated. Height/Length: 68 inches Per Patient. BMI: 27.4. --13:02 Fabricio Laguna R.N. Medications None. --13:00 Fabricio Laguna R.N. Allergies No Known Drug Allergy. --13:00 Fabricio Laguna R.N. History Arrived by private vehicle. Historian: patient. Accompanied by family and sister. Primary physician (none). ( Pt requesting help for Alcohol Withdrawal/DT's. Got sober 08/18/16 for 40 days and then resumed alcohol drinking.). Onset. (about 1 year ago). Treatment PAPER MILL SUPERINTENDENT: None. PAST MEDICAL HX: Heart disease: (tachycardia). Immunizations: status is unknown. Last normal menstrual period was 8 weeks ago. SOCIAL HX: Heavy tobacco smoker- 1 pack per day. Alcohol use; consumes liquor daily. No drug use. No infectious disease exposure. ABUSE ASSESSMENT: No report of abuse. FALL RISK ASSESSMENT: Fall risk assessment completed. No fall risk identified. NUTRITIONAL RISK ASSESSMENT: The nutritional risk assessment revealed no deficiencies. FUNCTIONAL ASSESSMENT: Functional assessment: no impairments noted. LEARNING NEEDS ASSESSMENT: The learning needs assessment revealed no barriers. SKIN INTEGRITY ASSESSMENT: Skin integrity risk assessment completed. No skin integrity risk identified. --13:08 Fabricio Laguna R.N. PROBLEMS: Abnormal Liver Function Test. Dehydration. Hepatitis. Sinus Tachycardia. Alcohol Withdrawal. Lumbar Strain. Insomnia. Back Pain. Immunizations. URI. Sinusitis. Allergic Rhinitis. Bronchitis. LNMP - Last Normal Menstrual Period. --13:01 Fabricio Laguna R.N. ADDITIONAL SURGERIES: Dental Surgery. Tonsillectomy. --13:07 Fabricio Laguna R.N. Interventions ID band on patient. To treatment room. --13:08 Fabricio Laguna R.N. PHYSICAL ASSESSMENT Ambulatory to room. GENERAL / NEURO / PSYCH: Alert. Oriented X 4. HEENT: No facial asymmetry noted. Mucous membranes are pink. RESPIRATORY: Respirations not labored. CVS: Cardiac rhythm: (RRR). GI / : Abdomen soft. SKIN: Skin intact. Skin is warm and dry. Normal skin turgor. --13:09 Fabricio Laguna R.N. NURSING PROGRESS NOTES Patient gowned. Reassurance given to the patient and patient's family. Patient identifiers checked. Call light placed in reach. Side rails up x 1. Bed placed in lowest position. Brakes of bed on. Patient ready for evaluation- chart flagged and ED physician notified. --13:10 Fabricio Laguna R.N. 13:44 10/23/2016 Site #1 started via IV in the right antecubital space with an 20g angiocath, with aseptic technique and good blood return; one attempt. Blood drawn: rainbow set. Labeled in the presence of the patient and sent to the lab. Saline lock flushed with 10 mL saline. --13:54 Fabricio Laguna R.N. 13:44 10/23/2016 PHENERGAN (Promethazine HCl) IVP 12.5 mg given over 2 minute(s) via site #1. --13:54 Fabricio Laguna R.N. 14:21 10/23/2016 Started bag #1 1000 mL IV Fluids IV NS (Saline); at 1000 mL/hr over 60 minute(s) via site #1 via IV pump. Allergies verified and confirmed 5 rights. IV patency established. IV site checked: no pain, redness, or swelling. IV flushed thoroughly pre- and post-medication administration. --14:26 Fabricio Laguna R.N. 15:03 10/23/16. BP: 107/80. HR: 95. RR: 16. O2 saturation: 95% on room air. --15:05 Fabricio Laguna R.N. 15:17 10/23/16. BP: 104/66 (regular adult cuff) taken on the left arm, via an automated monitor, while sitting. HR: 89 (irregular). O2 saturation: 100% on room air. --15:18 Xena Arce 15:20 10/23/2016 IV Fluids IV NS Discontinued: bag #1 infused. Total amount infused: 1000 mL. IV patency established. IV site checked: no pain, redness, or swelling. IV flushed thoroughly. --20:11 Fabricio Laguna R.N. 15:30 10/23/2016 Site #1 removed upon discharge. Catheter intact. Pressure dressing, bandaid and bandage applied. --20:11 Fabricio Laguna R.N. DISPOSITION / DISCHARGE 15:30 10/23/16. BP: 105/63. HR: 97. RR: 18. O2 saturation: 97% on room air. Temp: 99 F (oral). Pain level now: 09/24. --20:07 Fabricio Laguna R.N. Departure time: 1540. --20:08 Fabricio Laguna R.N. 15:40. No learning barriers present. Discharge instructions provided and reviewed with the patient. Reviewed medication(s) (prescription given to pt). Reviewed referral to family practice for followup. Patient verbalized understanding. Written instructions provided in Kenyan. The patient was discharged by the physician restaurant assistant manager. She was discharged home and accompanied by family. She left the Emergency Department ambulatory and via private vehicle. Family member driving. --20:09 Fabricio Laguna R.N. Locked/Released at 10/23/2016 20:12 by Fabricio Laguna R.N.
--- NOTE | 2016-10-23 20:12 | ED MED RECONCILIATION SUMMARY ---
Patient: WILLIAM LEONARD Medication Reconciliation Report [facility] VisitID: [id number] [address] [place] [address] 31y, F Registration Date/Time: 10/23/2016 Weight: 81.6 kg Height/Length: 68 in. BMI: 27.4 ALLERGIES: No Known Drug Allergy The patient's Home Medications are listed below: NONE. The source(s) of the original Home Medication information: Not obtained. The following Medications were given to the patient in the Emergency Department: PHENERGAN [IVP] IVP 12.5 mg, administered: 10/23/2016 1:44:00 PM IV NS IV Fluids bolus 0, then 1000 mL/hr, administered: 10/23/2016 2:21:00 PM The following Medications were prescribed to the patient: Zofran (orally disintegrating tablets) 4 mg: take 1 orally every 6 hours for 3 days as needed for nausea. Dispense ten (10). No refill. Substitution is permissible. -- Ardi Roper, P.A.-C Chlordiazepoxide 25 mg: take 1 orally every 4 hours for 5 days. Dispense thirty (30). No refill. Zofran ODT 4 mg: take 1 orally every 6 hours as needed for nausea and vomiting. Dispense ten (10). No refill. Substitution is permissible. -- Adri Roper, P.A.-C Phenergan 12.5 mg tablets: take 1 orally every 6 hours as needed for nausea or vomiting. Dispense ten (10) -- Adri Roper, P.A.-C
--- NOTE | 2016-10-23 20:12 | ED MAR SUMMARY ---
..... Medication Administration Record [facility] [address] [place] [address] Patient: WILLIAM LEONARD Visit ID: [id number] 31y, F Weight: 81.6 kg Height/Length: 68 in BMI: 27.4 ALLERGIES: No Known Drug Allergy Given 13:44 10/23/2016 Fabricio Laguna RManojN. Medication Administered: PHENERGAN [IVP] (PROMETHAZINE HCL), Dose: 12.5 mg IVP over 2 minute(s), Site: #1 right AC. Medication Ordered: Phenergan IV 12.5 mg (HIGH ALERT MEDICATION, NOW). Start 14:21 10/23/2016 Fabricio Laguna, R.N., Stop 15:20 10/23/2016 Fabricio Laguna, R.N. Medication Administered: IV NS (SALINE), Dose: IV Fluids over 60 minute(s), Rate: 1000 mL/hr, Dispensed: 1000 mL bag, Site: #1 right AC. Medication Ordered: IV NS with Folic Acid 1 mg/L, Multivitamin Concentrate Intravenous 1 amp/L, Thiamine HCl 100 mg/L: initial bolus 1000 mL (1000 mL/hr), then 1000 mL/hr for X1 (NOW); Justin.
--- NOTE | 2016-10-23 20:12 | ED DISCHARGE INSTRUCTIONS ---
Patient: WILLIAM LEONARD General Instructions [facility] VisitID: [id number] [address] [place] [address] 31y, F Registration Date/Time: 10/23/2016 Substance abuse problems: abuse of alcohol. Substance dependence problems: dependence on alcohol. Elevated LFT. INSTRUCTIONS ([facility] [address] [place] [address] ). Prescription Medications: Zofran (orally disintegrating tablets) 4 mg: take 1 orally every 6 hours for 3 days as needed for nausea. Dispense ten (10). No refill. Substitution is permissible. Phenergan 12.5 mg tablets: take 1 orally every 6 hours as needed for nausea or vomiting. Dispense ten (10) Chlordiazepoxide 25 mg: take 1 orally every 4 hours for 5 days. Dispense thirty (30). No refill. Zofran ODT 4 mg: take 1 orally every 6 hours as needed for nausea and vomiting. Dispense ten (10). No refill. Substitution is permissible. Follow-up: Follow up with a specialist in three days. ADDITIONAL INFORMATION Alcohol Intoxication Alcohol intoxication occurs when you drink alcohol faster than your liver can remove it from your system. Alcohol intoxication affects your judgment and coordination. Very high blood alcohol levels can cause coma, very slow breathing and even . If you drink alcohol every day, this may gradually cause permanent damage to your liver, brain, heart, pancreas and other organs. Alcohol use during may cause permanent damage to the growing baby. Home Care: Do not drink any more alcohol. DO NOT DRIVE until all effects of the alcohol have worn off. Get lots of rest over the next few days. Drink plenty of water and other non-alcoholic liquids. Try to eat regular meals. If you have been drinking heavily on a daily basis, you may go through alcohol withdrawl. This is also called the shakes or DTs. The usual symptoms last 3 to 4 days and may include nervousness, shakiness, nausea, sweating or sleeplessness. During this time, it is best that you stay with family or friends who can help and support you. You can also admit yourself to a residential detox program. If your symptoms are severe, contact your doctor for medicines to help. Follow Up: If alcohol is causing a problem in your life, these and other organizations can help you: Alcoholics Anonymous offers support through a self-help fellowship. There are no dues or fees. See the Yellow Pages and call for time and place of meetings. www.aa.org Al-Anon offers support to families of alcohol users. [phone] www.al-anon.org National [place] On Alcoholism And Drug Dependence [phone] www.ncadd.org There are also inpatient or residential alcohol detox programs. Check the Internet or phonebook Yellow Pages under Drug Abuse & Treatment Centers. Get Prompt Medical Attention if any of the following occur: there) Alcohol Withdrawal Alcohol withdrawal symptoms occur if you have been drinking steadily for at least several days, and your body gets used to the effect of alcohol. When you suddenly stop drinking (or, even just cut down your daily intake but continue to drink), you may develop alcohol withdrawal, also called the The usual symptoms last 3-4 days and include nervousness, shakiness, nausea, sweating, sleeplessness. In severe cases hallucinations (seeing things that are not there) and seizures can occur. Home Care: You will need plenty of rest and fluids over the next several days. Eat regular meals. Of course, do not drink any more alcohol. During this time, it is best that you stay with family or friends who can help and support you. You can also admit yourself to a residential detox program. Do not drive until all symptoms are gone and you are feeling better. If you were given sedative medication to reduce your symptoms, do not take it more often than prescribed and never take it with alcohol. Follow Up: Once you have gone through the withdrawal symptoms, you have fought half of the brown. To avoid the risk of returning to your previous drinking pattern, it is essential that you get follow-up support and treatment. Alcoholics Anonymous offers support through a self-help fellowship. There are no dues or fees. See the Yellow Pages and call for time and place of meetings. www.aa.org Al-Anon offers support to families of alcohol users. [phone] www.al-anon.org National [place] On Alcoholism And Drug Dependence [phone] www.ncadd.org Residential alcohol detox programs are available. Check the Yellow Pages under Drug Abuse & Treatment Centers. Get Prompt Medical Attention if any of the following occur: Severe shakiness Hallucinations Seizure Fever over 100.5 F (38.0 C) oral Headache, confusion, extreme drowsiness, inability to awaken Increasing upper abdominal pain Repeated vomiting or vomiting blood You have been given the following additional information: Alcohol Intoxication Alcohol Withdrawal (Electronically signed by Adri Roper P.A.-C 10/23/2016 14:38)
--- NOTE | 2016-10-23 20:12 | ED MAR SUMMARY ---
..... Medication Administration Record [facility] [address] [place] [address] Patient: WILLIAM LEONARD Visit ID: [id number] 31y, F Weight: 81.6 kg Height/Length: 68 in BMI: 27.4 ALLERGIES: No Known Drug Allergy Given 13:44 10/23/2016 Fabricio Laguna RManojN. Medication Administered: PHENERGAN [IVP] (PROMETHAZINE HCL), Dose: 12.5 mg IVP over 2 minute(s), Site: #1 right AC. Medication Ordered: Phenergan IV 12.5 mg (HIGH ALERT MEDICATION, NOW). Start 14:21 10/23/2016 Fabricio Laguna, R.N., Stop 15:20 10/23/2016 Fabricio Laguna, R.N. Medication Administered: IV NS (SALINE), Dose: IV Fluids over 60 minute(s), Rate: 1000 mL/hr, Dispensed: 1000 mL bag, Site: #1 right AC. Medication Ordered: IV NS with Folic Acid 1 mg/L, Multivitamin Concentrate Intravenous 1 amp/L, Thiamine HCl 100 mg/L: initial bolus 1000 mL (1000 mL/hr), then 1000 mL/hr for X1 (NOW); Justin.
--- NOTE | 2016-10-23 20:12 | ED MED RECONCILIATION SUMMARY ---
Patient: WILLIAM LEONARD Medication Reconciliation Report [facility] VisitID: [id number] [address] [place] [address] 31y, F Registration Date/Time: 10/23/2016 Weight: 81.6 kg Height/Length: 68 in. BMI: 27.4 ALLERGIES: No Known Drug Allergy The patient's Home Medications are listed below: NONE. The source(s) of the original Home Medication information: Not obtained. The following Medications were given to the patient in the Emergency Department: PHENERGAN [IVP] IVP 12.5 mg, administered: 10/23/2016 1:44:00 PM IV NS IV Fluids bolus 0, then 1000 mL/hr, administered: 10/23/2016 2:21:00 PM The following Medications were prescribed to the patient: Zofran (orally disintegrating tablets) 4 mg: take 1 orally every 6 hours for 3 days as needed for nausea. Dispense ten (10). No refill. Substitution is permissible. -- Adri Roper, P.A.-C Chlordiazepoxide 25 mg: take 1 orally every 4 hours for 5 days. Dispense thirty (30). No refill. Zofran ODT 4 mg: take 1 orally every 6 hours as needed for nausea and vomiting. Dispense ten (10). No refill. Substitution is permissible. -- Adri Roper, P.A.-C Phenergan 12.5 mg tablets: take 1 orally every 6 hours as needed for nausea or vomiting. Dispense ten (10) -- Adri Roper, P.A.-C
--- NOTE | 2016-10-23 20:12 | ED DISCHARGE INSTRUCTIONS ---
Patient: WILLIAM LEONARD General Instructions [facility] VisitID: [id number] [address] [place] [address] 31y, F Registration Date/Time: 10/23/2016 Substance abuse problems: abuse of alcohol. Substance dependence problems: dependence on alcohol. Elevated LFT. INSTRUCTIONS ([facility] [address] [place] [address] ). Prescription Medications: Zofran (orally disintegrating tablets) 4 mg: take 1 orally every 6 hours for 3 days as needed for nausea. Dispense ten (10). No refill. Substitution is permissible. Phenergan 12.5 mg tablets: take 1 orally every 6 hours as needed for nausea or vomiting. Dispense ten (10) Chlordiazepoxide 25 mg: take 1 orally every 4 hours for 5 days. Dispense thirty (30). No refill. Zofran ODT 4 mg: take 1 orally every 6 hours as needed for nausea and vomiting. Dispense ten (10). No refill. Substitution is permissible. Follow-up: Follow up with a specialist in three days. ADDITIONAL INFORMATION Alcohol Intoxication Alcohol intoxication occurs when you drink alcohol faster than your liver can remove it from your system. Alcohol intoxication affects your judgment and coordination. Very high blood alcohol levels can cause coma, very slow breathing and even . If you drink alcohol every day, this may gradually cause permanent damage to your liver, brain, heart, pancreas and other organs. Alcohol use during may cause permanent damage to the growing baby. Home Care: Do not drink any more alcohol. DO NOT DRIVE until all effects of the alcohol have worn off. Get lots of rest over the next few days. Drink plenty of water and other non-alcoholic liquids. Try to eat regular meals. If you have been drinking heavily on a daily basis, you may go through alcohol withdrawl. This is also called the shakes or DTs. The usual symptoms last 3 to 4 days and may include nervousness, shakiness, nausea, sweating or sleeplessness. During this time, it is best that you stay with family or friends who can help and support you. You can also admit yourself to a residential detox program. If your symptoms are severe, contact your doctor for medicines to help. Follow Up: If alcohol is causing a problem in your life, these and other organizations can help you: Alcoholics Anonymous offers support through a self-help fellowship. There are no dues or fees. See the Yellow Pages and call for time and place of meetings. www.aa.org Al-Anon offers support to families of alcohol users. [phone] www.al-anon.org National [place] On Alcoholism And Drug Dependence [phone] www.ncadd.org There are also inpatient or residential alcohol detox programs. Check the Internet or phonebook Yellow Pages under Drug Abuse & Treatment Centers. Get Prompt Medical Attention if any of the following occur: there) Alcohol Withdrawal Alcohol withdrawal symptoms occur if you have been drinking steadily for at least several days, and your body gets used to the effect of alcohol. When you suddenly stop drinking (or, even just cut down your daily intake but continue to drink), you may develop alcohol withdrawal, also called the The usual symptoms last 3-4 days and include nervousness, shakiness, nausea, sweating, sleeplessness. In severe cases hallucinations (seeing things that are not there) and seizures can occur. Home Care: You will need plenty of rest and fluids over the next several days. Eat regular meals. Of course, do not drink any more alcohol. During this time, it is best that you stay with family or friends who can help and support you. You can also admit yourself to a residential detox program. Do not drive until all symptoms are gone and you are feeling better. If you were given sedative medication to reduce your symptoms, do not take it more often than prescribed and never take it with alcohol. Follow Up: Once you have gone through the withdrawal symptoms, you have fought half of the brown. To avoid the risk of returning to your previous drinking pattern, it is essential that you get follow-up support and treatment. Alcoholics Anonymous offers support through a self-help fellowship. There are no dues or fees. See the Yellow Pages and call for time and place of meetings. www.aa.org Al-Anon offers support to families of alcohol users. [phone] www.al-anon.org National [place] On Alcoholism And Drug Dependence [phone] www.ncadd.org Residential alcohol detox programs are available. Check the Yellow Pages under Drug Abuse & Treatment Centers. Get Prompt Medical Attention if any of the following occur: Severe shakiness Hallucinations Seizure Fever over 100.5 F (38.0 C) oral Headache, confusion, extreme drowsiness, inability to awaken Increasing upper abdominal pain Repeated vomiting or vomiting blood You have been given the following additional information: Alcohol Intoxication Alcohol Withdrawal (Electronically signed by Adri Roper P.A.-C 10/23/2016 14:38)
== END 2016-10-23 15:40 | disposition home or self-care (01) ==
LOC: ED SRH 12:31
DX: F10.20 Alcohol dependence, uncomplicated (principal); R94.5 Abnormal results of liver function studies; Y90.6 Blood alcohol level of 120-199 mg/100 ml
CPT/HCPCS: 90004; 90100; 92010; 92235; 92760; 92761; 92762; 92763; 92764; 92765; 92766; 92767; 93070; 95059

== ENCOUNTER 2016-12-13 10:34 | Emergency (ER) | payer OTHER ==
--- NOTE | 2016-12-13 15:15 | ED CLINICAL REPORT ---
Clinical Report - Physicians/Mid Levels [facility] [address] [place] [address] 12/13/2016 10:34 Patient: WILLIAM LEONARD Time Seen: 10:51. Arrived- By private vehicle. Historian- patient. HISTORY OF PRESENT ILLNESS Chief Complaint: "GOT THE SHAKES". Wants to stop drinking. Wants to enter detox program. Duration of substance abuse- years. Substances abused: Last drink consisted of liquor. (at about midnight). The patient has had nausea, mild abdominal pain. The pain is described as located in the epigastrium and tremors. She has had severe vomiting. The vomiting has occurred numerous times. No blood-tinged emesis, coffee-grounds emesis or frankly bloody emesis. No suicidal thoughts. She says that she "quit cold turkey" several months back and was dry for 40 days. However, she says recently she has been drinking a fifth of liquor each day. The symptoms are described as severe. No injuries noted. Similar symptoms previously: Several times. REVIEW OF SYSTEMS No chills, fever, sweats, calf pain or chest pain. No cough, difficulty breathing, pedal edema, palpitations or black stools. No bloody stools, constipation, diarrhea or urinary problems. The patient has had nausea. All systems otherwise negative, except as recorded above. SOCIAL HISTORY Current every day heavy tobacco smoker (cigarette)- less than 1 pack per day. Heavy alcohol use. Last drink was 10 hours ago. Patient is a longstanding alcoholic. Has good social support. Lives with friends. Concerned individual (friend) will stay with patient. FAMILY HISTORY Denies family medical history. ADDITIONAL NOTES The nursing notes have been reviewed. PHYSICAL EXAM Vital Signs: 12/13/2016 10:42 BP: 148/88. HR: 111. RR: 18. O2 saturation: 96%. Temp: 98.5 F. Pain level now: 5/10. Have been reviewed. Appearance: Alert. She appears uncomfortable and is restless. Head: Head atraumatic. Eyes: Pupils equal, round and reactive to light. ENT: Pharynx normal. Neck: Normal inspection. Neck supple. CVS: Normal heart rate and rhythm. Heart sounds normal. Respiratory: No respiratory distress. Breath sounds normal. Abdomen: Soft and nontender. No organomegaly. Back: Normal inspection. Skin: Skin warm and dry. Normal skin color. Normal skin turgor. Extremities: Extremities exhibit normal ROM. No calf tenderness. No lower extremity edema. Neuro: Alert. Cranial nerves normal (as tested). (tremulous). LABS, X-RAYS, AND EKG Laboratory Tests: UA-Culture if indicated: (VERN: 12/13/2016 11:45) ( [facility] 12/13/2016 12:20) Final results Test Result Flag Units (Reference) URINE COLOR NICKY URINE APPEARANCE SL CLOUDY URINE GLUCOSE NEGATIVE (NEGATIVE) URINE BILIRUBIN 1+ (NEGATIVE) URINE BILIRUBIN ICTOTEST POSITIVE (NEGATIVE) URINE KETONE 2+ (NEGATIVE) URINE SPECIFIC GRAVITY 1.025 (1.010-1.030) URINE PH 6.0 (5.0-8.0) URINE PROTEIN 1+ (NEGATIVE) URINE UROBILINOGEN 1.0 EU/dL (0.2-1.0) URINE NITRITE NEGATIVE (NEGATIVE) URINE BLOOD NEGATIVE (NEGATIVE) URINE LEUK ESTERASE NEGATIVE (NEGATIVE) URINE RBC NONE SEEN rbc/hpf (0-1) URINE WBC 0-1 wbc/hpf (0-1) URINE EPITHELIAL CELLS >15 EPI/hpf (0-5) URINE BACTERIA NONE SEEN (NONE SEEN) URINE COMMENT CULT NOT INDICATED 4+ MUCUSURINE CULTURES ARE SET-UP BASED ON THE FOLLOWING CRITERIA:POSITIVE NITRITEPOSITIVE LEUKOCYTE ESTERASEGREATER THAN 10 WHITE BLOOD CELLSMODERATE (2+) OR GREATER BACTERIA Urine: (VERN: 12/13/2016 11:45) ( [facility] 12/13/2016 12:10) Final results Test Result Flag Units (Reference) URINE NEGATIVE CBC w Diff: (VERN: 12/13/2016 11:00) ( [facility] 12/13/2016 11:16) Final results Test Result Flag Units (Reference) WHITE BLOOD COUNT 5.7 K/uL (4.5-11.5) RED BLOOD COUNT 4.03 M/uL (4.00-5.20) HEMOGLOBIN 14.5 gm/dL (12.0-16.0) HEMATOCRIT 43.1 % (36.0-46.0) MEAN CELL VOLUME 107 H fL (80-100) MEAN CORPUSCULAR HGB 36 H pg (26-34) MEAN CORPUSCULAR HGB CONC 34 g/dL (31-37) RED CELL DISTRIBUTION WIDTH 15.6 H % (11.6-14.8) PLATELET COUNT 123 L K/uL (150-400) NEUTROPHIL % 79.2 H % (50-75) LYMPH % 10.6 L % (25-40) MONO % 8.7 % (3-14) EOSINOPHIL % 1.3 % (0-4) BASOPHIL % 0.2 % (0-2) Urine Drug Screen: (VERN: 12/13/2016 11:45) ( [facility] 12/13/2016 12:26) Final results Test Result Flag Units (Reference) AMPHETAMINE/METHAMPHETAMINE NEGATIVE (NEGATIVE) BARBITURATE NEGATIVE (NEGATIVE) BENZODIAZEPINE POSITIVE H (NEGATIVE) CANNABINOID NEGATIVE (NEGATIVE) COCAINE NEGATIVE (NEGATIVE) ECSTASY NEGATIVE (NEGATIVE) METHADONE NEGATIVE (NEGATIVE) OPIATE NEGATIVE (NEGATIVE) The urine drug screen is a qualitative screening test fordrug overdose and abuse. All screen results should beconsidered as presumptive.Drugs screened for are as follows:BenzodiazepinesCocaineAmphetamines/MetamphetaminesTHC (Tetrahydrocannabinol)OpiatesBarbituratesEcstasyMethadonePositive results are unconfirmed. For confirmation, notifythe lab for the specimen to be sent to the reference lab.All confirmations must be performed by a differentmethodology.The ingestion of natural herbal and plant productscontaining Ephedra/Ephedra metabolites can produce in urineone or more substances capable of cross reacting withamphetamine/methamphetamine immunoassays. These testsprovide a preliminary result only. A more specificalternative chemical method must be used to obtain aconfirmed analytical result. CMP: (VERN: 12/13/2016 11:00) ( [facility] 12/13/2016 11:26) Final results Test Result Flag Units (Reference) GLUCOSE 98 mg/dL (70-110) BUN 11 mg/dL (7-18) CREATININE 0.9 mg/dL (0.6-1.3) Estimated GFR >60 mL/min Estimated GFR- >60 mL/min Note: Persistent reduction over 3 months in eGFR<60 mL/min/1.73 m2 defines CKD. Patients with eGFR values>=60 mL/min/1.73 m2 may also have CKD if evidence ofpersistent proteinuria. Additional information may be foundat www.kidney.org. SODIUM 144 mmol/L (136-145) POTASSIUM 3.9 mmol/L (3.5-5.1) CHLORIDE 104 mmol/L (98-107) CARBON DIOXIDE 23 mmol/L (21-32) CALCIUM 8.7 mg/dL (8.5-10.1) TOTAL PROTEIN 7.5 g/dL (6.4-8.2) ALBUMIN 4.3 g/dL (3.3-5.0) BILIRUBIN, TOTAL 1.3 H mg/dL (0.0-1.0) ALKALINE PHOSPHATASE 89 U/L (46-116) AST (SGOT) 191 H U/L (15-37) ALT (SGPT) 119 H U/L (12-78) LIPASE 334 U/L (73-393) AMYLASE 103 U/L (25-115) . PROGRESS AND PROCEDURES Course of Care: Patient is stable. Patient/family counseled. Old medical records reviewed. Disposition: Discharged. Condition: stable. CLINICAL IMPRESSION Chronic substance abuse- alcohol. INSTRUCTIONS No driving or operating machinery. Stay with responsible adult family member (or other responsible adult). No alcohol. Seek medical help to quit drinking. (seek assistance through Alcoholics Anonymous as discussed. Your friend is to hold on to your medications. He is only to administer these to if you have not been drinking alcohol as discussed.). Warnings: Further evaluation is necessary. SEDATIVE MEDICATION: You were given sedative medication during your visit. Do not drive or operate dangerous machinery. GENERAL WARNINGS: Return or contact your physician immediately if your condition worsens or changes unexpectedly, if not improving as expected, or if other problems arise. Prescription Medications: Zofran 4 mg: Take 1 orally every six hours as needed for nausea/vomiting. Dispense ten (10). No refills. Substitution is permissible. Ativan 1 mg: Take 1 orally every 8 hours as needed for anxiety. Dispense fifteen (15). No refills. Substitution is permissible. Follow-up: Follow up with your doctor. Call for the next available appointment. Understanding of the discharge instructions verbalized by patient. Discharge instructions reviewed with and understanding was verbalized by optometrist owner. (Electronically signed by Delfino Medina MD 12/13/2016 19:56)
--- NOTE | 2016-12-13 15:15 | ED ORDER SUMMARY ---
..... Patient: WILLIAM LEONARD OrderSheet [facility] VisitID: [id number] [address] [place] [address] 31y, F Registration Date/Time: 12/13/2016 ORDER SHEET Weight: 81.6 kg Allergies: No Known Drug Allergy GENERAL ORDERS: CBC w Diff Urgent (11:12/13/2016 Amandeep PRESTON) (Ack 11:08 Claribel) (11:17 TBowen R.N.) CMP Urgent (11:12/13/2016 Amandeep PRESTON) (Ack 11:08 Claribel) (11:17 TBowen R.N.) UA-Culture if indicated Urgent (:12/13/2016 Amandeep PRESTON) (Ack 11:08 Claribel) (11:52 TBowen R.N.) Amylase Urgent (11:12/13/2016 Amandeep PRESTON) (Ack 11:08 Claribel) (11:17 TBowen R.N.) Lipase Urgent (11:12/13/2016 Amandeep PRESTON) (Ack 11:08 Claribel) (11:17 TBowen R.N.) Urine Urgent (11:12/13/2016 Amandeep PRESTON) (Ack 11:08 Claribel) (11:52 TBowen R.N.) Urine Drug Screen Urgent (11:12/13/2016 Amandeep PRESTON) (Ack 11:08 Claribel) (11:52 TBowen R.N.) MEDICATION ORDERS: IV FLUIDS: IV NS with Folic Acid 1 mg/L, Multivitamin Concentrate Intravenous 1 amp/L, Thiamine HCl 100 mg/L: initial bolus 500 mL (1000 mL/hr), then 125 mL/hr for 4h (NOW); Urgent (11:12/13/2016 Amandeep PRESTON) (11:17 TBowen R.N.) Zofran IV 4 mg (NOW) (11:12/13/2016 Amandeep PRESTON) (11:17 TBowen R.N.) Ativan IV 0.5 mg (HIGH ALERT MEDICATION, NOW) (12:12/13/2016 Amandeep PRESTON) (12:13 Rodolfo Gill) ORDER SHEET NOTES: [Electronically signed by Jeannie Faye R.N. (14:46 12/13/2016)] [Electronically signed by Delfino Medina MD (19:56 12/13/2016)] [Electronically locked/signed by Jeannie Faye R.N. (14:46 12/13/2016)]
--- NOTE | 2016-12-13 15:15 | ED NURSING NOTES ---
Clinical Report - Nurses [facility] [address] [place] [address] 12/13/2016 10:34 Patient: WILLIAM LEONARD TRIAGE Triage time 10:43. Acuity: LEVEL 3. Chief Complaint: HEADACHE. --10:46 TonyaB, R.N. 10:42 12/13/16. BP: 148/88. HR: 111. RR: 18. O2 saturation: 96%. Temp: 98.5 F. Pain level now: 12/22. --10:46 TonyaB, R.N. Weight: 81.6 kg. Height/Length: 68 inches. BMI: 27.4. --10:43 TonyaB, R.N. Medications None. --10:44 TonyaB, R.N. Allergies No Known Drug Allergy. --10:44 TonyaB, R.N. History Arrived by private vehicle. Historian: patient. Accompanied by family. ( pt states her last drink was midnight, pt is here for DTs). Treatment PROGRAM MANAGER: None. SOCIAL HX: Heavy tobacco smoker- less than 1 pack per day. Heavy alcohol use; consumes a large amount of liquor daily. Last drink was 10 hours ago. No drug use. No infectious disease exposure. SELF HARM ASSESSMENT: A self harm assessment was performed. The patient answered "no" to the question "Have you recently felt down, depressed, or hopeless?", "Have you noticed less interest or pleasure in doing things?", "Do you have thoughts of harming or killing yourself?", "Are you here because you tried to hurt yourself?", "Have you ever tried to hurt yourself before today?", "Have you recently had thoughts about harming or killing others?" and "Do you have any dangerous items in your possession?". FALL RISK ASSESSMENT: Fall risk assessment completed. No fall risk identified. NUTRITIONAL RISK ASSESSMENT: The nutritional risk assessment revealed no deficiencies. FUNCTIONAL ASSESSMENT: Functional assessment: no impairments noted. LEARNING NEEDS ASSESSMENT: The learning needs assessment revealed no barriers. ABUSE ASSESSMENT: Abuse assessment: The patient was asked "Do you feel safe in your home?". SKIN INTEGRITY ASSESSMENT: Skin integrity risk assessment completed. No skin integrity risk identified. --10:46 Bridget Perry PROBLEMS: Lifestyle / Substance Problems. Heart Disease. Abnormal Liver Function Test. Dehydration. Hepatitis. Sinus Tachycardia. Alcohol Withdrawal. Lumbar Strain. Insomnia. Back Pain. Immunizations. URI. Sinusitis. Allergic Rhinitis. Bronchitis. LNMP - Last Normal Menstrual Period. --10:45 Du Perry. ADDITIONAL SURGERIES: Dental Surgery. Tonsillectomy. --10:44 Du Perry. Interventions ID band on patient. To treatment room. --10:46 Du Perry. PHYSICAL ASSESSMENT Ambulatory to room. GENERAL / NEURO / PSYCH: Alert. Oriented X 4. Appears anxious. HEENT: Pupils equal, round and reactive to light. No facial asymmetry noted. Mucous membranes are pink. RESPIRATORY: Respirations not labored. Chest nontender. Breath sounds within normal limits. CVS: Normal sinus rhythm noted. Capillary refill less than 2 seconds. Pulses within normal limits. GI / : Abdomen soft and nontender and normal bowel sounds. SKIN: Skin intact. Skin is warm and dry. Normal skin turgor. --10:46 Bridget Perry ( pt complains of nausea, vomiting, tremors, and headache). --10:47 Bridget Perry NURSING PROGRESS NOTES Patient identifiers checked. Call light placed in reach. Side rails up. Bed placed in lowest position. Brakes of bed on. --10:47 Bridget Perry 11:00 12/13/2016 Site #1 started via IV in the right antecubital space with an 20g angiocath, with aseptic technique and good blood return; one attempt. Blood drawn: rainbow set. Labeled in the presence of the patient and sent to the lab. Saline lock flushed with 10 mL saline. --11:00 Bridget Perry 11:17 12/13/2016 Started bag #1 1000 mL IV Fluids IV NS (Saline); at 999 mL/hr over 30 minute(s) via site #1 via IV pump. Allergies verified and confirmed 5 rights. IV patency established. IV site checked: no pain, redness, or swelling. IV flushed thoroughly pre- and post-medication administration. --11:17 Bridget Perry 11:17 12/13/2016 Zofran (Ondansetron HCl) IVP 4 mg given over 1 minute(s) via site #1. Allergies verified and confirmed 5 rights. IV patency established. IV site checked: no pain, redness, or swelling. IV flushed thoroughly pre- and post-medication administration. IVP given by RN. --11:17 Bridget Perry 11:30 12/13/16. BP: 123/86. HR: 100. RR: 18. O2 saturation: 96%. Pain level now: 5. --11:30 Bridget Perry 11:46 12/13/2016 IV Fluids IV NS via IV site #1 Rate Changed: bag #1 decreased to 125 mL/hr via IV pump. --11:46 Vianney Courtney R.N. 12:13 12/13/2016 Ativan (LORazepam) IVP 0.5 mg given over 1 minute(s) via site #1. Allergies verified, confirmed 5 rights and sedative warning given to the patient. IV patency established. IV site checked: no pain, redness, or swelling. IV flushed thoroughly pre- and post-medication administration. IVP given by RN. --12:13 Bridget Perry Reassessment after medication administered. She is resting quietly. --13:04 Bridget Perry The patient is resting quietly. --13:47 Bridget Perry ( sandwich and soda provided to the pt at this time). --14:19 Bridget Perry 14:19 12/13/16. BP: 123/86. HR: 84. RR: 17. O2 saturation: 97%. Temp: deferred. Pain level now: 010. --14:19 Bridget Perry 14:44 12/13/2016 IV Fluids IV NS Discontinued: bag #1 completed upon discharge. Total amount infused: 1000 mL. IV patency established. IV site checked: no pain, redness, or swelling. IV flushed thoroughly. --14:44 Bridget Perry DISPOSITION / DISCHARGE 14:44 12/13/2016 Site #1 removed upon discharge. Catheter intact. Bandaid applied. --14:44 Bridget Perry Departure time: 14:46. Condition at departure: improved. No learning barriers present. Discharge instructions provided and reviewed with the patient. Reviewed medication(s) side effects, precautions, dosing and course information. Prescription(s) given to the patient. Reviewed referrals for followup. Summary of care provided to follow-up provider. Activity restrictions (no driving) reviewed. Patient verbalized understanding. Written instructions provided in [place]. No warning instructions, treatment instructions, diet instructions, note given or follow up contact number given. No stop smoking instructions. The patient was discharged by the physician. She was discharged home and accompanied by spouse. She left the Emergency Department ambulatory and via private vehicle. Spouse driving. FALL RISK ASSESSMENT: Fall risk assessment completed. No fall risk identified. --14:46 Bridget Perry 14:44 12/13/16. BP: 132/76. HR: 88. RR: 18. O2 saturation: 97%. Temp: 98.2 F. Pain level now: 0/10. --14:46 Bridget Perry Locked/Released at 12/13/2016 14:46 by Bridget Perry
--- NOTE | 2016-12-13 15:15 | ED ORDER SUMMARY ---
..... Patient: WILLIAM LEONARD OrderSheet [facility] VisitID: [id number] [address] [place] [address] 31y, F Registration Date/Time: 12/13/2016 ORDER SHEET Weight: 81.6 kg Allergies: No Known Drug Allergy GENERAL ORDERS: CBC w Diff Urgent (11:12/13/2016 Amandeep PRESTON) (Ack 11:08 Claribel) (11:17 TBowen R.N.) CMP Urgent (11:12/13/2016 Amandeep PRESTON) (Ack 11:08 Claribel) (11:17 TBowen R.N.) UA-Culture if indicated Urgent (:12/13/2016 Amandeep PRESTON) (Ack 11:08 Claribel) (11:52 TBowen R.N.) Amylase Urgent (11:12/13/2016 Amandeep PRESTON) (Ack 11:08 Claribel) (11:17 TBowen R.N.) Lipase Urgent (11:12/13/2016 Amandeep PRESTON) (Ack 11:08 Claribel) (11:17 TBowen R.N.) Urine Urgent (11:12/13/2016 Amandeep PRESTON) (Ack 11:08 Claribel) (11:52 TBowen R.N.) Urine Drug Screen Urgent (11:12/13/2016 Amandeep PRESTON) (Ack 11:08 Claribel) (11:52 TBowen R.N.) MEDICATION ORDERS: IV FLUIDS: IV NS with Folic Acid 1 mg/L, Multivitamin Concentrate Intravenous 1 amp/L, Thiamine HCl 100 mg/L: initial bolus 500 mL (1000 mL/hr), then 125 mL/hr for 4h (NOW); Urgent (11:12/13/2016 Amandeep PRESTON) (11:17 TBowen R.N.) Zofran IV 4 mg (NOW) (11:12/13/2016 Amandeep PRESTON) (11:17 TBowen R.N.) Ativan IV 0.5 mg (HIGH ALERT MEDICATION, NOW) (12:12/13/2016 Amandeep PRESTON) (12:13 Rodolfo Gill) ORDER SHEET NOTES: [Electronically signed by Jeannie Faye R.N. (14:46 12/13/2016)] [Electronically signed by Delfino Medina MD (19:56 12/13/2016)] [Electronically locked/signed by Jeannie Faye R.N. (14:46 12/13/2016)]
--- NOTE | 2016-12-13 19:56 | ED MED RECONCILIATION SUMMARY ---
Patient: WILLIAM LEONARD Medication Reconciliation Report [facility] VisitID: [id number] [address] [place] [address] 31y, F Registration Date/Time: 12/13/2016 Weight: 81.6 kg Height/Length: 68 in. BMI: 27.4 ALLERGIES: No Known Drug Allergy The patient's Home Medications are listed below: NONE. The source(s) of the original Home Medication information: Not obtained. The following Medications were given to the patient in the Emergency Department: IV NS IV Fluids bolus 0, then 999 mL/hr, administered: 12/13/2016 11:17:00 AM Zofran [IVP] IVP 4 mg, administered: 12/13/2016 11:17:00 AM Ativan [IVP] IVP 0.5 mg, administered: 12/13/2016 12:13:00 PM The following Medications were prescribed to the patient: Zofran 4 mg: Take 1 orally every six hours as needed for nausea/vomiting. Dispense ten (10). No refills. Substitution is permissible. -- Delfino Medina MD Ativan 1 mg: Take 1 orally every 8 hours as needed for anxiety. Dispense fifteen (15). No refills. Substitution is permissible. -- Delfino Medina MD
--- NOTE | 2016-12-13 19:56 | ED MAR SUMMARY ---
..... Medication Administration Record [facility] [address] [place] [address] Patient: WILLIAM LEONARD Visit ID: [id number] 31y, F Weight: 81.6 kg Height/Length: 68 in BMI: 27.4 ALLERGIES: No Known Drug Allergy Start 11:17 12/13/2016 Bridget Perry, Stop 14:44 12/13/2016 Bridget Perry Medication Administered: IV NS (SALINE), Dose: IV Fluids over 30 minute(s), Rate: 999 mL/hr, Dispensed: 1000 mL bag, Site: #1 right AC. Medication Ordered: IV NS with Folic Acid 1 mg/L, Multivitamin Concentrate Intravenous 1 amp/L, Thiamine HCl 100 mg/L: initial bolus 500 mL (1000 mL/hr), then 125 mL/hr for 4h (NOW); Urgent. Given 11:17 12/13/2016 Bridget Perry Medication Administered: ZOFRAN [IVP] (ONDANSETRON HCL), Dose: 4 mg IVP over 1 minute(s), Site: #1 right AC. Medication Ordered: Zofran IV 4 mg (NOW). Given 12:13 12/13/2016 Bridget Perry Medication Administered: ATIVAN [IVP] (LORAZEPAM), Dose: 0.5 mg IVP over 1 minute(s), Site: #1 right AC. Medication Ordered: Ativan IV 0.5 mg (HIGH ALERT MEDICATION, NOW).
--- NOTE | 2016-12-13 19:56 | ED DISCHARGE INSTRUCTIONS ---
Patient: WILLIAM LEONARD General Instructions [facility] VisitID: [id number] [address] [place] [address] 31y, F Registration Date/Time: 12/13/2016 Chronic substance abuse- alcohol. INSTRUCTIONS No driving or operating machinery. Stay with responsible adult family member (or other responsible adult). No alcohol. Seek medical help to quit drinking. (seek assistance through Alcoholics Anonymous as discussed. Your friend is to hold on to your medications. He is only to administer these to if you have not been drinking alcohol as discussed.). Warnings: Further evaluation is necessary. SEDATIVE MEDICATION: You were given sedative medication during your visit. Do not drive or operate dangerous machinery. GENERAL WARNINGS: Return or contact your physician immediately if your condition worsens or changes unexpectedly, if not improving as expected, or if other problems arise. Prescription Medications: Zofran 4 mg: Take 1 orally every six hours as needed for nausea/vomiting. Dispense ten (10). No refills. Substitution is permissible. Ativan 1 mg: Take 1 orally every 8 hours as needed for anxiety. Dispense fifteen (15). No refills. Substitution is permissible. Follow-up: Follow up with your doctor. Call for the next available appointment. Understanding of the discharge instructions verbalized by patient. Discharge instructions reviewed with and understanding was verbalized by warehouse production worker. ADDITIONAL INFORMATION Alcohol Intoxication Alcohol intoxication occurs when you drink alcohol faster than your liver can remove it from your system. Alcohol intoxication affects your judgment and coordination. Very high blood alcohol levels can cause coma, very slow breathing and even . If you drink alcohol every day, this may gradually cause permanent damage to your liver, brain, heart, pancreas and other organs. Alcohol use during may cause permanent damage to the growing baby. Home Care: Do not drink any more alcohol. DO NOT DRIVE until all effects of the alcohol have worn off. Get lots of rest over the next few days. Drink plenty of water and other non-alcoholic liquids. Try to eat regular meals. If you have been drinking heavily on a daily basis, you may go through alcohol withdrawl. This is also called the shakes or DTs. The usual symptoms last 3 to 4 days and may include nervousness, shakiness, nausea, sweating or sleeplessness. During this time, it is best that you stay with family or friends who can help and support you. You can also admit yourself to a residential detox program. If your symptoms are severe, contact your doctor for medicines to help. Follow Up: If alcohol is causing a problem in your life, these and other organizations can help you: [employer] offers support through a self-help fellowship. There are no dues or fees. See the Yellow Pages and call for time and place of meetings. www.aa.org [employer] offers support to families of alcohol users. 227.607.3369 www.al-anon.org [employer] Alcoholism And Drug Dependence 579-693-0047 www.ncadd.org There are also inpatient or residential alcohol detox programs. Check the Internet or phonebook Yellow Pages under Drug Abuse & Treatment Centers. Get Prompt Medical Attention if any of the following occur: there) Alcohol Withdrawal Alcohol withdrawal symptoms occur if you have been drinking steadily for at least several days, and your body gets used to the effect of alcohol. When you suddenly stop drinking (or, even just cut down your daily intake but continue to drink), you may develop alcohol withdrawal, also called the The usual symptoms last 3-4 days and include nervousness, shakiness, nausea, sweating, sleeplessness. In severe cases hallucinations (seeing things that are not there) and seizures can occur. Home Care: You will need plenty of rest and fluids over the next several days. Eat regular meals. Of course, do not drink any more alcohol. During this time, it is best that you stay with family or friends who can help and support you. You can also admit yourself to a residential detox program. Do not drive until all symptoms are gone and you are feeling better. If you were given sedative medication to reduce your symptoms, do not take it more often than prescribed and never take it with alcohol. Follow Up: Once you have gone through the withdrawal symptoms, you have fought half of the brown. To avoid the risk of returning to your previous drinking pattern, it is essential that you get follow-up support and treatment. [employer] offers support through a self-help fellowship. There are no dues or fees. See the Yellow Pages and call for time and place of meetings. www.aa.org [employer] offers support to families of alcohol users. 309.831.4132 www.al-anon.org [employer] [place] [employer] Alcohol[employer] And Drug Dependence 352-994-9817 www.ncadd.org Residential alcohol detox programs are available. Check the Yellow Pages under Drug Abuse & Treatment Centers. Get Prompt Medical Attention if any of the following occur: Severe shakiness Hallucinations Seizure Fever over 100.5 F (38.0 C) oral Headache, confusion, extreme drowsiness, inability to awaken Increasing upper abdominal pain Repeated vomiting or vomiting blood Ondansetron Oral disintegrating tablet What is this medicine? ONDANSETRON (on CHAR se aurora) is used to treat nausea and vomiting caused by chemotherapy. It is also used to prevent or treat nausea and vomiting after surgery. How should I use this medicine? These tablets are made to dissolve in the mouth. Do not try to push the tablet through the foil backing. With dry hands, peel away the foil backing and gently remove the tablet. Place the tablet in the mouth and allow it to dissolve, then swallow. While you may take these tablets with water, it is not necessary to do so. Talk to your learning designer regarding the use of this medicine in children. Special care may be needed. What side effects may I notice from receiving this medicine? Side effects that you should report to your doctor or health career portals teacher as soon as possible: allergic reactions like skin rash, itching or hives, swelling of the face, lips, or tongue breathing problems dizziness fast or irregular heartbeat feeling faint or lightheaded, falls fever and chills swelling of the hands and feet tightness in the chest Side effects that usually do not require medical attention (report to your doctor or health career portals teacher if they continue or are bothersome): constipation or diarrhea headache What may interact with this medicine? Do not take this medicine with any of the following medications: -apomorphine -cisapride -dofetilide -dronedarone -pimozide -thioridazine -ziprasidone This medicine may also interact with the following medications: -carbamazepine -phenytoin -rifampicin -tramadol -other medicines that prolong the QT interval (cause an abnormal heart rhythm) What if I miss a dose? If you miss a dose, take it as soon as you can. If it is almost time for your next dose, take only that dose. Do not take double or extra doses. Where should I keep my medicine? Keep out of the reach of children. Store between 2 and 30 degrees C (36 and 86 degrees F). Throw away any unused medicine after the expiration date. What should I tell my health care provider before I take this medicine? They need to know if you have any of these conditions: heart disease history of irregular heartbeat liver disease low levels of magnesium or potassium in the blood an unusual or allergic reaction to ondansetron, granisetron, other medicines, foods, dyes, or preservatives or trying to get breast-feeding What should I watch for while using this medicine? Check with your doctor or health career portals teacher as soon as you can if you have any sign of an allergic reaction. Lorazepam Oral tablet What is this medicine? LORAZEPAM (dov A ze nancy) is a benzodiazepine. It is used to treat anxiety. How should I use this medicine? Take this medicine by mouth with a glass of water. Follow the directions on the prescription label. If it upsets your stomach, take it with food or milk. Take your medicine at regular intervals. Do not take it more often than directed. Do not stop taking except on the advice of your doctor or health career portals teacher. Talk to your learning designer regarding the use of this medicine in children. Special care may be needed. What side effects may I notice from receiving this medicine? Side effects that you should report to your doctor or health career portals teacher as soon as possible: changes in vision confusion depression mood changes, excitability or aggressive behavior movement difficulty, staggering or jerky movements muscle cramps restlessness weakness or tiredness Side effects that usually do not require medical attention (report to your doctor or health career portals teacher if they continue or are bothersome): constipation or diarrhea difficulty sleeping, nightmares dizziness, drowsiness headache nausea, vomiting What may interact with this medicine? barbiturate medicines for inducing sleep or treating seizures, like phenobarbital clozapine medicines for depression, mental problems or psychiatric disturbances medicines for sleep phenytoin probenecid theophylline valproic acid What if I miss a dose? If you miss a dose, take it as soon as you can. If it is almost time for your next dose, take only that dose. Do not take double or extra doses. Where should I keep my medicine? Keep out of the reach of children. This medicine can be abused. Keep your medicine in a safe place to protect it from theft. Do not share this medicine with anyone. Selling or giving away this medicine is dangerous and against the law. Store at room temperature between 20 and 25 degrees C (68 and 77 degrees F). Protect from light. Keep container tightly closed. Throw away any unused medicine after the expiration date. What should I tell my health care provider before I take this medicine? They need to know if you have any of these conditions: alcohol or drug abuse problem bipolar disorder, depression, psychosis or other mental health condition glaucoma kidney or liver disease lung disease or breathing difficulties myasthenia gravis Parkinson's disease seizures or a history of seizures suicidal thoughts an unusual or allergic reaction to lorazepam, other benzodiazepines, foods, dyes, or preservatives or trying to get breast-feeding What should I watch for while using this medicine? Visit your doctor or health career portals teacher for regular checks on your progress. Your body may become dependent on this medicine, ask your doctor or health career portals teacher if you still need to take it. However, if you have been taking this medicine regularly for some time, do not suddenly stop taking it. You must gradually reduce the dose or you may get severe side effects. Ask your doctor or health career portals teacher for advice before increasing or decreasing the dose. Even after you stop taking this medicine it can still affect your body for several days. You may get drowsy or dizzy. Do not drive, use machinery, or do anything that needs mental alertness until you know how this medicine affects you. To reduce the risk of dizzy and fainting spells, do not stand or sit up quickly, especially if you are an older patient. Alcohol may increase dizziness and drowsiness. Avoid alcoholic drinks. Do not treat yourself for coughs, colds or allergies without asking your doctor or health career portals teacher for advice. Some ingredients can increase possible side effects. You have been given the following additional information: Alcohol Intoxication Alcohol Withdrawal Ondansetron Oral disintegrating tablet Lorazepam Oral tablet No driving or operating machinery. Stay with responsible adult family member (or other responsible adult). (Electronically signed by Delfino Medina MD 12/13/2016 19:56)
--- NOTE | 2016-12-13 19:56 | ED DISCHARGE INSTRUCTIONS ---
Patient: WILLIAM LEONARD General Instructions [facility] VisitID: [id number] [address] [place] [address] 31y, F Registration Date/Time: 12/13/2016 Chronic substance abuse- alcohol. INSTRUCTIONS No driving or operating machinery. Stay with responsible adult family member (or other responsible adult). No alcohol. Seek medical help to quit drinking. (seek assistance through Alcoholics Anonymous as discussed. Your friend is to hold on to your medications. He is only to administer these to if you have not been drinking alcohol as discussed.). Warnings: Further evaluation is necessary. SEDATIVE MEDICATION: You were given sedative medication during your visit. Do not drive or operate dangerous machinery. GENERAL WARNINGS: Return or contact your physician immediately if your condition worsens or changes unexpectedly, if not improving as expected, or if other problems arise. Prescription Medications: Zofran 4 mg: Take 1 orally every six hours as needed for nausea/vomiting. Dispense ten (10). No refills. Substitution is permissible. Ativan 1 mg: Take 1 orally every 8 hours as needed for anxiety. Dispense fifteen (15). No refills. Substitution is permissible. Follow-up: Follow up with your doctor. Call for the next available appointment. Understanding of the discharge instructions verbalized by patient. Discharge instructions reviewed with and understanding was verbalized by kitchen work supervisor. ADDITIONAL INFORMATION Alcohol Intoxication Alcohol intoxication occurs when you drink alcohol faster than your liver can remove it from your system. Alcohol intoxication affects your judgment and coordination. Very high blood alcohol levels can cause coma, very slow breathing and even . If you drink alcohol every day, this may gradually cause permanent damage to your liver, brain, heart, pancreas and other organs. Alcohol use during may cause permanent damage to the growing baby. Home Care: Do not drink any more alcohol. DO NOT DRIVE until all effects of the alcohol have worn off. Get lots of rest over the next few days. Drink plenty of water and other non-alcoholic liquids. Try to eat regular meals. If you have been drinking heavily on a daily basis, you may go through alcohol withdrawl. This is also called the shakes or DTs. The usual symptoms last 3 to 4 days and may include nervousness, shakiness, nausea, sweating or sleeplessness. During this time, it is best that you stay with family or friends who can help and support you. You can also admit yourself to a residential detox program. If your symptoms are severe, contact your doctor for medicines to help. Follow Up: If alcohol is causing a problem in your life, these and other organizations can help you: [employer] offers support through a self-help fellowship. There are no dues or fees. See the Yellow Pages and call for time and place of meetings. www.aa.org [employer] offers support to families of alcohol users. 486.202.5353 www.al-anon.org [employer] [place] On Alcoholism And Drug Dependence 651-794-6908 www.ncadd.org There are also inpatient or residential alcohol detox programs. Check the Internet or phonebook Yellow Pages under Drug Abuse & Treatment Centers. Get Prompt Medical Attention if any of the following occur: there) Alcohol Withdrawal Alcohol withdrawal symptoms occur if you have been drinking steadily for at least several days, and your body gets used to the effect of alcohol. When you suddenly stop drinking (or, even just cut down your daily intake but continue to drink), you may develop alcohol withdrawal, also called the The usual symptoms last 3-4 days and include nervousness, shakiness, nausea, sweating, sleeplessness. In severe cases hallucinations (seeing things that are not there) and seizures can occur. Home Care: You will need plenty of rest and fluids over the next several days. Eat regular meals. Of course, do not drink any more alcohol. During this time, it is best that you stay with family or friends who can help and support you. You can also admit yourself to a residential detox program. Do not drive until all symptoms are gone and you are feeling better. If you were given sedative medication to reduce your symptoms, do not take it more often than prescribed and never take it with alcohol. Follow Up: Once you have gone through the withdrawal symptoms, you have fought half of the brown. To avoid the risk of returning to your previous drinking pattern, it is essential that you get follow-up support and treatment. [employer] offers support through a self-help fellowship. There are no dues or fees. See the Yellow Pages and call for time and place of meetings. www.aa.org [employer] offers support to families of alcohol users. 552.497.8233 www.al-anon.org [employer] [place] [employer] Alcoholism And Drug Dependence 441-768-1696 www.ncadd.org Residential alcohol detox programs are available. Check the Yellow Pages under Drug Abuse & Treatment Centers. Get Prompt Medical Attention if any of the following occur: Severe shakiness Hallucinations Seizure Fever over 100.5 F (38.0 C) oral Headache, confusion, extreme drowsiness, inability to awaken Increasing upper abdominal pain Repeated vomiting or vomiting blood Ondansetron Oral disintegrating tablet What is this medicine? ONDANSETRON (on CHAR se aurora) is used to treat nausea and vomiting caused by chemotherapy. It is also used to prevent or treat nausea and vomiting after surgery. How should I use this medicine? These tablets are made to dissolve in the mouth. Do not try to push the tablet through the foil backing. With dry hands, peel away the foil backing and gently remove the tablet. Place the tablet in the mouth and allow it to dissolve, then swallow. While you may take these tablets with water, it is not necessary to do so. Talk to your aviation mechanic regarding the use of this medicine in children. Special care may be needed. What side effects may I notice from receiving this medicine? Side effects that you should report to your doctor or health cattle care worker as soon as possible: allergic reactions like skin rash, itching or hives, swelling of the face, lips, or tongue breathing problems dizziness fast or irregular heartbeat feeling faint or lightheaded, falls fever and chills swelling of the hands and feet tightness in the chest Side effects that usually do not require medical attention (report to your doctor or health cattle care worker if they continue or are bothersome): constipation or diarrhea headache What may interact with this medicine? Do not take this medicine with any of the following medications: -apomorphine -cisapride -dofetilide -dronedarone -pimozide -thioridazine -ziprasidone This medicine may also interact with the following medications: -carbamazepine -phenytoin -rifampicin -tramadol -other medicines that prolong the QT interval (cause an abnormal heart rhythm) What if I miss a dose? If you miss a dose, take it as soon as you can. If it is almost time for your next dose, take only that dose. Do not take double or extra doses. Where should I keep my medicine? Keep out of the reach of children. Store between 2 and 30 degrees C (36 and 86 degrees F). Throw away any unused medicine after the expiration date. What should I tell my health care provider before I take this medicine? They need to know if you have any of these conditions: heart disease history of irregular heartbeat liver disease low levels of magnesium or potassium in the blood an unusual or allergic reaction to ondansetron, granisetron, other medicines, foods, dyes, or preservatives or trying to get breast-feeding What should I watch for while using this medicine? Check with your doctor or health cattle care worker as soon as you can if you have any sign of an allergic reaction. Lorazepam Oral tablet What is this medicine? LORAZEPAM (dov A ze nancy) is a benzodiazepine. It is used to treat anxiety. How should I use this medicine? Take this medicine by mouth with a glass of water. Follow the directions on the prescription label. If it upsets your stomach, take it with food or milk. Take your medicine at regular intervals. Do not take it more often than directed. Do not stop taking except on the advice of your doctor or health cattle care worker. Talk to your aviation mechanic regarding the use of this medicine in children. Special care may be needed. What side effects may I notice from receiving this medicine? Side effects that you should report to your doctor or health cattle care worker as soon as possible: changes in vision confusion depression mood changes, excitability or aggressive behavior movement difficulty, staggering or jerky movements muscle cramps restlessness weakness or tiredness Side effects that usually do not require medical attention (report to your doctor or health cattle care worker if they continue or are bothersome): constipation or diarrhea difficulty sleeping, nightmares dizziness, drowsiness headache nausea, vomiting What may interact with this medicine? barbiturate medicines for inducing sleep or treating seizures, like phenobarbital clozapine medicines for depression, mental problems or psychiatric disturbances medicines for sleep phenytoin probenecid theophylline valproic acid What if I miss a dose? If you miss a dose, take it as soon as you can. If it is almost time for your next dose, take only that dose. Do not take double or extra doses. Where should I keep my medicine? Keep out of the reach of children. This medicine can be abused. Keep your medicine in a safe place to protect it from theft. Do not share this medicine with anyone. Selling or giving away this medicine is dangerous and against the law. Store at room temperature between 20 and 25 degrees C (68 and 77 degrees F). Protect from light. Keep container tightly closed. Throw away any unused medicine after the expiration date. What should I tell my health care provider before I take this medicine? They need to know if you have any of these conditions: alcohol or drug abuse problem bipolar disorder, depression, psychosis or other mental health condition glaucoma kidney or liver disease lung disease or breathing difficulties myasthenia gravis Parkinson's disease seizures or a history of seizures suicidal thoughts an unusual or allergic reaction to lorazepam, other benzodiazepines, foods, dyes, or preservatives or trying to get breast-feeding What should I watch for while using this medicine? Visit your doctor or health cattle care worker for regular checks on your progress. Your body may become dependent on this medicine, ask your doctor or health cattle care worker if you still need to take it. However, if you have been taking this medicine regularly for some time, do not suddenly stop taking it. You must gradually reduce the dose or you may get severe side effects. Ask your doctor or health cattle care worker for advice before increasing or decreasing the dose. Even after you stop taking this medicine it can still affect your body for several days. You may get drowsy or dizzy. Do not drive, use machinery, or do anything that needs mental alertness until you know how this medicine affects you. To reduce the risk of dizzy and fainting spells, do not stand or sit up quickly, especially if you are an older patient. Alcohol may increase dizziness and drowsiness. Avoid alcoholic drinks. Do not treat yourself for coughs, colds or allergies without asking your doctor or health cattle care worker for advice. Some ingredients can increase possible side effects. You have been given the following additional information: Alcohol Intoxication Alcohol Withdrawal Ondansetron Oral disintegrating tablet Lorazepam Oral tablet No driving or operating machinery. Stay with responsible adult family member (or other responsible adult). (Electronically signed by Delfino Medina MD 12/13/2016 19:56)
--- NOTE | 2016-12-13 19:56 | ED MAR SUMMARY ---
..... Medication Administration Record [facility] [address] [place] [address] Patient: WILLIAM LEONARD Visit ID: [id number] 31y, F Weight: 81.6 kg Height/Length: 68 in BMI: 27.4 ALLERGIES: No Known Drug Allergy Start 11:17 12/13/2016 Bridget Perry, Stop 14:44 12/13/2016 Bridget Perry Medication Administered: IV NS (SALINE), Dose: IV Fluids over 30 minute(s), Rate: 999 mL/hr, Dispensed: 1000 mL bag, Site: #1 right AC. Medication Ordered: IV NS with Folic Acid 1 mg/L, Multivitamin Concentrate Intravenous 1 amp/L, Thiamine HCl 100 mg/L: initial bolus 500 mL (1000 mL/hr), then 125 mL/hr for 4h (NOW); Urgent. Given 11:17 12/13/2016 Bridget Perry Medication Administered: ZOFRAN [IVP] (ONDANSETRON HCL), Dose: 4 mg IVP over 1 minute(s), Site: #1 right AC. Medication Ordered: Zofran IV 4 mg (NOW). Given 12:13 12/13/2016 Bridget Perry Medication Administered: ATIVAN [IVP] (LORAZEPAM), Dose: 0.5 mg IVP over 1 minute(s), Site: #1 right AC. Medication Ordered: Ativan IV 0.5 mg (HIGH ALERT MEDICATION, NOW).
--- NOTE | 2016-12-13 19:56 | ED MED RECONCILIATION SUMMARY ---
Patient: WILLIAM LEONARD Medication Reconciliation Report [facility] VisitID: [id number] [address] [place] [address] 31y, F Registration Date/Time: 12/13/2016 Weight: 81.6 kg Height/Length: 68 in. BMI: 27.4 ALLERGIES: No Known Drug Allergy The patient's Home Medications are listed below: NONE. The source(s) of the original Home Medication information: Not obtained. The following Medications were given to the patient in the Emergency Department: IV NS IV Fluids bolus 0, then 999 mL/hr, administered: 12/13/2016 11:17:00 AM Zofran [IVP] IVP 4 mg, administered: 12/13/2016 11:17:00 AM Ativan [IVP] IVP 0.5 mg, administered: 12/13/2016 12:13:00 PM The following Medications were prescribed to the patient: Zofran 4 mg: Take 1 orally every six hours as needed for nausea/vomiting. Dispense ten (10). No refills. Substitution is permissible. -- Delfino Medina MD Ativan 1 mg: Take 1 orally every 8 hours as needed for anxiety. Dispense fifteen (15). No refills. Substitution is permissible. -- Delfino Medina MD
== END 2016-12-13 14:45 | disposition home or self-care (01) ==
LOC: ED SRH 10:34
DX: F10.10 Alcohol abuse, uncomplicated (principal); F17.219 Nicotine dependence, cigarettes, with unspecified nicotine-induced disorders
CPT/HCPCS: 90004; 90100; 92010; 92235; 92530; 92760; 92761; 92762; 92763; 92764; 92765; 92766; 92767; 93070; 95059

== ENCOUNTER 2017-02-21 22:03 | Emergency (ER) | payer OTHER ==
--- NOTE | 2017-02-22 00:47 | ED NURSING NOTES ---
Clinical Report - Nurses [facility] [address] [place] [address] 02/21/2017 22:05 Patient: WILLIAM LEONARD TRIAGE Triage time 2215. Acuity: LEVEL 3. Chief Complaint: SUBSTANCE ABUSE and NAUSEA (tested positive for today, some cramping, would like to quit drinking, feels shaky and jittery, usually dringk 1/2 to a full 5th of whiskey). Alert. SEPSIS SCREEN: Sepsis Screen. Negative (no infection suspected/documented). MEERA COMA SCORE: Meera Coma Scale: 15- eyes open spontaneously (4); best verbal response- oriented x 4 (5); best motor response- obeys commands (6). --22:29 Jacqueline Nazario R.N. 22:18 02/21/17. BP: 140/85. HR: 99. RR: 17. O2 saturation: 96%. Temp: 98.4 F. --22:29 Jacqueline Nazario R.N. Weight: 81.6 kg stated. Height/Length: 68 inches Per Patient. BMI: 27.4. --22:23 Jacqueline Nazario R.N. Medications None. --22:22 Jacqueline Nazario R.N. Allergies No Known Drug Allergy. --22:22 Jacqueline Nazario R.N. History PAST MEDICAL HX: Immunizations: up-to-date. Last normal menstrual period- about 4 weeks ago. No contraception. Currently . confirmed with home test. SOCIAL HX: Current every day light tobacco smoker- less than 1/2 a pack per day. Alcohol use; consumes beer daily and liquor by the bottle. No drug use. No infectious disease exposure. SELF HARM ASSESSMENT: A self harm assessment was performed. The patient answered "no" to the question "Do you have thoughts of harming or killing yourself?" and "Are you here because you tried to hurt yourself?". FALL RISK ASSESSMENT: Fall risk assessment completed. No fall risk identified. NUTRITIONAL RISK ASSESSMENT: The nutritional risk assessment revealed no deficiencies. FUNCTIONAL ASSESSMENT: Functional assessment: no impairments noted. LEARNING NEEDS ASSESSMENT: The learning needs assessment revealed no barriers. SKIN INTEGRITY ASSESSMENT: Skin integrity risk assessment completed. No skin integrity risk identified. --22:29 Jacqueline Nazario R.N. PROBLEMS: Substance Abuse. Lifestyle / Substance Problems. Heart Disease. Abnormal Liver Function Test. Dehydration. Hepatitis. Sinus Tachycardia. Alcohol Withdrawal. Lumbar Strain. Insomnia. Back Pain. Immunizations. URI. Sinusitis. Allergic Rhinitis. Bronchitis. LNMP - Last Normal Menstrual Period. --22:23 Jacqueline Nazario R.N. Interventions ID band on patient. To treatment room. --22:29 Jacqueline Nazario R.N. PHYSICAL ASSESSMENT Ambulatory to room. GENERAL / NEURO / PSYCH: Alert. Oriented X 4. Appears anxious. RESPIRATORY: Respirations not labored. CVS: Pulses within normal limits. GI / : Abdomen soft and nontender. SKIN: Skin intact. Skin is warm and dry. Normal skin turgor. --22:30 Jacqueline Nazario R.N. NURSING PROGRESS NOTES Patient gowned. Head of bed elevated. Two patient identifiers checked. Call light placed in reach. Side rails up x 2. Bed placed in lowest position. Brakes of bed on. Patient ready for evaluation- chart flagged. ED physician notified. --22:30 Jacqueline Nazario R.N. 22:25 02/21/2017 Site #1 started via IV in the right antecubital space with an 20g angiocath, with aseptic technique and good blood return; one attempt. Blood drawn: rainbow set. Labeled in the presence of the patient and sent to the lab. Saline lock flushed with 10 mL saline. --22:32 Fabricio Barrios R.N. 22:27 02/21/2017 Zofran (Ondansetron HCl) IVP 4 mg given over 2 minute(s) via site #1. Allergies verified and confirmed 5 rights. IV patency established. IV site checked: no pain, redness, or swelling. IV flushed thoroughly pre- and post-medication administration. --22:32 Fabricio Barrios R.N. 22:36 02/21/2017 Valium (Diazepam) PO 5 mg given. Allergies verified, confirmed 5 rights and sedative warning given to the patient. --22:36 Jacqueline Nazario R.N. Patient ID band checked for patient name and birthdate: patient confirmed. Instructions provided to collect clean catch urine and patient verbalized understanding urine collected with return of ladonna-colored clear urine; sample sent to lab. Specimen labeled in the presence of the patient. --23:07 Rachele Wray R.N. Care transferred and report given (Grazyna RN). --23:26 Jacqueline Nazario R.N. 23:51 02/21/17. ( US at bedside.). --23:51 Grazyna Miller 00:23 02/22/17. BP: 132/73. HR: 89. RR: 18. O2 saturation: 97%. Pain level now 5/10. --00:23 Grazyna Miller 00:54 02/22/2017 Site #1 removed upon discharge. Catheter intact. Pressure dressing applied. --00:54 Grazyna Miller. DISPOSITION / DISCHARGE 00:53 02/22/17. Departure time: 00:Feb 22 2017. Condition at departure: improved. The goals identified in the patient's plan of care were met. No learning barriers present. Discharge instructions provided and reviewed with the patient. Reviewed warnings (Patient verbalized awareness of warning s/sx listed in dc paperwork.). Reviewed medication(s). Prescription(s) given to the patient (Valium, vitamins.). Treatments reviewed. Reviewed referral to an direct support professional and a primary care physician for followup. Patient verbalized understanding. Written instructions provided in Yi. The patient was discharged by the physician. She was discharged home and accompanied by family. She left the Emergency Department ambulatory and via private vehicle. Family member driving. FALL RISK ASSESSMENT: Fall risk assessment completed. No fall risk identified. --00:53 Grazyna Miller 00:52 02/22/17. BP: deferred. HR: deferred. RR: deferred. O2 saturation: deferred. Temp: deferred. Pain level now deferred. --00:53 Grazyna Miller. Locked/Released at 02/22/2017 0:55 by Grazyna Miller,
--- NOTE | 2017-02-22 00:47 | ED CLINICAL REPORT ---
Clinical Report - Physicians/Mid Levels [facility] [address] [place] [address] 02/21/2017 22:05 Patient: WILLIAM LEONARD Time Seen: 2210; initial patient contact. Arrived- By private vehicle. Historian- patient. HISTORY OF PRESENT ILLNESS Chief Complaint: PELVIC PAIN. This started today and is still present (unchanged). It was abrupt in onset and has been intermittent but is not gone now. No vaginal bleeding or discharge or complaint of leakage of fluid. Last normal menstrual period- last month maybe but is not sure. EDC is unknown. (reports she was told she would never get after several spontaneous abortions. hx of alcohol use. drinks about 1/2 - a full bottle of hard alcohol.). Similar symptoms previously: None. Recent medical care: Not recently seen/assessed. REVIEW OF SYSTEMS No nausea, black stools, bloody stools, headache or fever. No cough, difficulty breathing, chest pain or skin rash. All systems otherwise negative, except as recorded above. PAST HISTORY See nurses notes. Medications: None. Allergies: No Known Drug Allergy. SOCIAL HISTORY Never smoker. Alcohol use. No drug use. No recent travel. Is a local resident. ADDITIONAL NOTES The nursing notes have been reviewed. PHYSICAL EXAM Vital Signs: 02/21/2017 22:18 BP: 140/85. HR: 99. RR: 17. O2 saturation: 96%. Temp: 98.4 F. Oxygen saturation normal. Appearance: Alert. Oriented X3. No acute distress. HEENT: Normal external inspection. ENT: Pharynx normal. CVS: Heart sounds normal. Respiratory: No respiratory distress. Breath sounds normal. Chest nontender. Abdomen: Soft and nontender. Bowel sounds normal. Skin: Skin warm and dry. Normal skin color. No rash. Normal skin turgor. Extremities: Extremities nontender. No pathologic edema. LABS, X-RAYS, AND EKG Pelvic Sonogram: Uterus normal. An ovarian cyst is present. No intrauterine . The study was independently viewed by me and interpreted by the radiologist. The study was discussed with the radiologist (via pacs). Laboratory Tests: UA-Culture if indicated: (VERN: 02/21/2017 23:00) ( [facility] [place] 02/21/2017 23:16) Final results Test Result Flag Units (Reference) URINE COLOR YELLOW URINE APPEARANCE CLEAR URINE GLUCOSE NEGATIVE (NEGATIVE) URINE BILIRUBIN NEGATIVE (NEGATIVE) URINE KETONE 1+ (NEGATIVE) URINE SPECIFIC GRAVITY 1.015 (1.010-1.030) URINE PH 7.5 (5.0-8.0) URINE PROTEIN TRACE (NEGATIVE) URINE UROBILINOGEN 0.2 EU/dL (0.2-1.0) URINE NITRITE NEGATIVE (NEGATIVE) URINE BLOOD TRACE-LYSED (NEGATIVE) URINE LEUK ESTERASE NEGATIVE (NEGATIVE) URINE RBC 0-1 rbc/hpf (0-1) URINE WBC 0-1 wbc/hpf (0-1) URINE EPITHELIAL CELLS 0-1 EPI/hpf (0-5) URINE BACTERIA NONE SEEN (NONE SEEN) URINE COMMENT CULT NOT INDICATED URINE CULTURES ARE SET-UP BASED ON THE FOLLOWING CRITERIA:POSITIVE NITRITEPOSITIVE LEUKOCYTE ESTERASEGREATER THAN 10 WHITE BLOOD CELLSMODERATE (2+) OR GREATER BACTERIA CBC w Diff: (VERN: 02/21/2017 22:25) ( [facility] 02/21/2017 22:35) Final results Test Result Flag Units (Reference) WHITE BLOOD COUNT 6.3 K/uL (4.5-11.5) RED BLOOD COUNT 3.71 L M/uL (4.00-5.20) HEMOGLOBIN 13.8 gm/dL (12.0-16.0) HEMATOCRIT 39.8 % (36.0-46.0) MEAN CELL VOLUME 107 H fL (80-100) MEAN CORPUSCULAR HGB 37 H pg (26-34) MEAN CORPUSCULAR HGB CONC 35 g/dL (31-37) RED CELL DISTRIBUTION WIDTH 17.6 H % (11.6-14.8) PLATELET COUNT 217 K/uL (150-400) LYMPH % 27.0 % (25-40) MONO % 8.8 % (3-14) GRANULOCYTE % 64.2 % (53-90) CMP: (VERN: 02/21/2017 22:25) ( [facility] [place] 02/21/2017 23:07) Final results Test Result Flag Units (Reference) GLUCOSE 92 mg/dL (70-110) BUN 8 mg/dL (7-18) CREATININE 0.7 mg/dL (0.6-1.3) Estimated GFR >60 mL/min Estimated GFR- >60 mL/min Note: Persistent reduction over 3 months in eGFR<60 mL/min/1.73 m2 defines CKD. Patients with eGFR values>=60 mL/min/1.73 m2 may also have CKD if evidence ofpersistent proteinuria. Additional information may be foundat www.kidney.org. SODIUM 142 mmol/L (136-145) POTASSIUM 3.7 mmol/L (3.5-5.1) CHLORIDE 105 mmol/L (98-107) CARBON DIOXIDE 26 mmol/L (21-32) CALCIUM 8.5 mg/dL (8.5-10.1) TOTAL PROTEIN 7.1 g/dL (6.4-8.2) ALBUMIN 3.9 g/dL (3.3-5.0) BILIRUBIN, TOTAL 0.6 mg/dL (0.0-1.0) ALKALINE PHOSPHATASE 57 U/L (46-116) AST (SGOT) 44 H U/L (15-37) ALT (SGPT) 36 U/L (12-78) LIPASE 194 U/L (73-393) BETA HCG, QUANTITATIVE 215 mIU/mL REFERENCE RANGE:Adult Males: <2 mIU/mLNon- Females: <6 mIU/mL Females:Approximate Approximate hCGGestational Age Range (mIU/mL) 0-1 week 0-501-2 weeks 40-3002-3 weeks 100-43024-2 weeks 500-59750-5 months 5,000-200,0002-3 months 10,000-100,0002nd trimester 3,000-50,0003rd trimester 1,000-50,000 . PROGRESS AND PROCEDURES Course of Care: patient with cramping and positive preg test. patient also with alcohol consumption. patient stopped drinking after poss preg test. discussed alcohol syndrome. patient with mild withdrawal symptoms. valium provided. labs and US ordered. patient with no IUP and likely early given beta and LMP. Discussed with patient ectopic vs normal IUP. Patient without signs of ectopic . Need for OB follow up needed. Discussed with patient work up, diagnosis, home care, follow up, and return precautions. All questions answered. Patient expressed understanding of these instructions and was agreeable. Disposition: Discharged. Condition: good. CLINICAL IMPRESSION 02/22/2017 00:23 BP: 132/73. HR: 89. RR: 18. O2 saturation: 97%. Blood pressure normal. Oxygen saturation normal. Ectopic ; positive test in emergency department. First trimester ; positive test in emergency department. (acute). Alcohol withdrawal with agitation. INSTRUCTIONS Warnings: GENERAL WARNINGS: Return or contact your physician immediately if your condition worsens or changes unexpectedly, if not improving as expected, or if other problems arise. Specifically return if pain, vomiting, bleeding, breathing difficulty or fever. weakness, light headed, or other concerns. Your Current Medications: CONTINUE TAKING THE FOLLOWING MEDICATIONS: None*. Prescription Medications: Valium 5 mg: take 1 orally every 8 hours. Dispense ten (10). No refill. Substitution is permissible. (as needed for symptoms of withdrawal) vitamins: Take 1 orally every day. Dispense ninety (90). No refils. Substitution is permissible. (OTC) Follow-up: Return to the emergency department as needed. Follow up with your doctor in three days. Reason for referral: recheck today's concerns. Summary of care provided to patient and family via paper. Screening today revealed the patient's blood pressure to be in the normal range. The patient should follow up with a primary care provider for blood pressure management. Understanding of the discharge instructions verbalized by patient. Follow-up with: Damian Hummel MD, Obstetrics/Gynecology, , [facility], [address] [place] [address] Follow up in three days. Reason for referral: contact for appointment at this office. there maybe a covering doctor if he is out and ask for them instead. . Summary of care provided to patient via paper. (Electronically signed by Joao King Dr. 02/23/2017 8:58)
--- NOTE | 2017-02-22 00:47 | ED ORDER SUMMARY ---
..... Patient: WILLIAM LEONARD OrderSheet [facility] VisitID: [id number] [place] [address] 31y, F Registration Date/Time: 02/21/2017 ORDER SHEET Weight: 81.6 kg (stated) Allergies: No Known Drug Allergy GENERAL ORDERS: UA-Culture if indicated Urgent (22:16 02/21/2017 Dafne Blanc) (Ack 22:22 Kyugn) (23:17 JQuivey R.N.) Urine Urgent (22:16 02/21/2017 Dafne Blanc) (Cancelled: Duplicate Order22:19 Dafne Blanc) CBC w Diff Urgent (22:20 02/21/2017 Dafne Blanc) (Ack 22:22 Kyung) (22:31 JQuivey R.N.) CMP Urgent (22:20 02/21/2017 Dafne Blanc) (Ack 22:22 Kyung) (22:31 JQuivey R.N.) Lipase Urgent (22:20 02/21/2017 Dafne Blanc) (Ack 22:22 Kyung) (22:31 JQuivey R.N.) Serum Quantitative Urgent (22:20 02/21/2017 Dafne Blanc) (Ack 22:22 Kyung) (22:31 JQuivey R.N.) US Pelvic Complete w Transvag Urgent (23:08 02/21/2017 Dafne Blanc) (Ack 23:22 Kyung) (0:23 ASchmuck) MEDICATION ORDERS: Valium PO 5 mg (HIGH ALERT MEDICATION, NOW) (22:30 02/21/2017 Dafne Blanc) (Ack 22:32 JQuivey R.N.) (22:36 LAbe R.N.) IV FLUIDS: Zofran IV 4 mg (NOW) (22:31 02/21/2017 JQuivey R.N. per protocol) (22:32 JQuivey R.N.) ORDER SHEET NOTES: [Electronically signed by Grazyna Miller (00:55 02/22/2017)] [Electronically signed by Joao King Dr. (08:58 02/23/2017)] [Electronically locked/signed by Grazyna Miller (00:55 02/22/2017)]
--- NOTE | 2017-02-22 00:47 | ED CLINICAL REPORT ---
Clinical Report - Physicians/Mid Levels [facility] [address] [place] [address] 02/21/2017 22:05 Patient: WILLIAM LEONARD Time Seen: 2210; initial patient contact. Arrived- By private vehicle. Historian- patient. HISTORY OF PRESENT ILLNESS Chief Complaint: PELVIC PAIN. This started today and is still present (unchanged). It was abrupt in onset and has been intermittent but is not gone now. No vaginal bleeding or discharge or complaint of leakage of fluid. Last normal menstrual period- last month maybe but is not sure. EDC is unknown. (reports she was told she would never get after several spontaneous abortions. hx of alcohol use. drinks about 1/2 - a full bottle of hard alcohol.). Similar symptoms previously: None. Recent medical care: Not recently seen/assessed. REVIEW OF SYSTEMS No nausea, black stools, bloody stools, headache or fever. No cough, difficulty breathing, chest pain or skin rash. All systems otherwise negative, except as recorded above. PAST HISTORY See nurses notes. Medications: None. Allergies: No Known Drug Allergy. SOCIAL HISTORY Never smoker. Alcohol use. No drug use. No recent travel. Is a local resident. ADDITIONAL NOTES The nursing notes have been reviewed. PHYSICAL EXAM Vital Signs: 02/21/2017 22:18 BP: 140/85. HR: 99. RR: 17. O2 saturation: 96%. Temp: 98.4 F. Oxygen saturation normal. Appearance: Alert. Oriented X3. No acute distress. HEENT: Normal external inspection. ENT: Pharynx normal. CVS: Heart sounds normal. Respiratory: No respiratory distress. Breath sounds normal. Chest nontender. Abdomen: Soft and nontender. Bowel sounds normal. Skin: Skin warm and dry. Normal skin color. No rash. Normal skin turgor. Extremities: Extremities nontender. No pathologic edema. LABS, X-RAYS, AND EKG Pelvic Sonogram: Uterus normal. An ovarian cyst is present. No intrauterine . The study was independently viewed by me and interpreted by the radiologist. The study was discussed with the radiologist (via pacs). Laboratory Tests: UA-Culture if indicated: (VERN: 02/21/2017 23:00) ( [facility] [place] 02/21/2017 23:16) Final results Test Result Flag Units (Reference) URINE COLOR YELLOW URINE APPEARANCE CLEAR URINE GLUCOSE NEGATIVE (NEGATIVE) URINE BILIRUBIN NEGATIVE (NEGATIVE) URINE KETONE 1+ (NEGATIVE) URINE SPECIFIC GRAVITY 1.015 (1.010-1.030) URINE PH 7.5 (5.0-8.0) URINE PROTEIN TRACE (NEGATIVE) URINE UROBILINOGEN 0.2 EU/dL (0.2-1.0) URINE NITRITE NEGATIVE (NEGATIVE) URINE BLOOD TRACE-LYSED (NEGATIVE) URINE LEUK ESTERASE NEGATIVE (NEGATIVE) URINE RBC 0-1 rbc/hpf (0-1) URINE WBC 0-1 wbc/hpf (0-1) URINE EPITHELIAL CELLS 0-1 EPI/hpf (0-5) URINE BACTERIA NONE SEEN (NONE SEEN) URINE COMMENT CULT NOT INDICATED URINE CULTURES ARE SET-UP BASED ON THE FOLLOWING CRITERIA:POSITIVE NITRITEPOSITIVE LEUKOCYTE ESTERASEGREATER THAN 10 WHITE BLOOD CELLSMODERATE (2+) OR GREATER BACTERIA CBC w Diff: (VERN: 02/21/2017 22:25) ( [facility] 02/21/2017 22:35) Final results Test Result Flag Units (Reference) WHITE BLOOD COUNT 6.3 K/uL (4.5-11.5) RED BLOOD COUNT 3.71 L M/uL (4.00-5.20) HEMOGLOBIN 13.8 gm/dL (12.0-16.0) HEMATOCRIT 39.8 % (36.0-46.0) MEAN CELL VOLUME 107 H fL (80-100) MEAN CORPUSCULAR HGB 37 H pg (26-34) MEAN CORPUSCULAR HGB CONC 35 g/dL (31-37) RED CELL DISTRIBUTION WIDTH 17.6 H % (11.6-14.8) PLATELET COUNT 217 K/uL (150-400) LYMPH % 27.0 % (25-40) MONO % 8.8 % (3-14) GRANULOCYTE % 64.2 % (53-90) CMP: (VERN: 02/21/2017 22:25) ( [facility] [place] 02/21/2017 23:07) Final results Test Result Flag Units (Reference) GLUCOSE 92 mg/dL (70-110) BUN 8 mg/dL (7-18) CREATININE 0.7 mg/dL (0.6-1.3) Estimated GFR >60 mL/min Estimated GFR- >60 mL/min Note: Persistent reduction over 3 months in eGFR<60 mL/min/1.73 m2 defines CKD. Patients with eGFR values>=60 mL/min/1.73 m2 may also have CKD if evidence ofpersistent proteinuria. Additional information may be foundat www.kidney.org. SODIUM 142 mmol/L (136-145) POTASSIUM 3.7 mmol/L (3.5-5.1) CHLORIDE 105 mmol/L (98-107) CARBON DIOXIDE 26 mmol/L (21-32) CALCIUM 8.5 mg/dL (8.5-10.1) TOTAL PROTEIN 7.1 g/dL (6.4-8.2) ALBUMIN 3.9 g/dL (3.3-5.0) BILIRUBIN, TOTAL 0.6 mg/dL (0.0-1.0) ALKALINE PHOSPHATASE 57 U/L (46-116) AST (SGOT) 44 H U/L (15-37) ALT (SGPT) 36 U/L (12-78) LIPASE 194 U/L (73-393) BETA HCG, QUANTITATIVE 215 mIU/mL REFERENCE RANGE:Adult Males: <2 mIU/mLNon- Females: <6 mIU/mL Females:Approximate Approximate hCGGestational Age Range (mIU/mL) 0-1 week 0-501-2 weeks 40-3002-3 weeks 100-96359-4 weeks 500-79817-7 months 5,000-200,0002-3 months 10,000-100,0002nd trimester 3,000-50,0003rd trimester 1,000-50,000 . PROGRESS AND PROCEDURES Course of Care: patient with cramping and positive preg test. patient also with alcohol consumption. patient stopped drinking after poss preg test. discussed alcohol syndrome. patient with mild withdrawal symptoms. valium provided. labs and US ordered. patient with no IUP and likely early given beta and LMP. Discussed with patient ectopic vs normal IUP. Patient without signs of ectopic . Need for OB follow up needed. Discussed with patient work up, diagnosis, home care, follow up, and return precautions. All questions answered. Patient expressed understanding of these instructions and was agreeable. Disposition: Discharged. Condition: good. CLINICAL IMPRESSION 02/22/2017 00:23 BP: 132/73. HR: 89. RR: 18. O2 saturation: 97%. Blood pressure normal. Oxygen saturation normal. Ectopic ; positive test in emergency department. First trimester ; positive test in emergency department. (acute). Alcohol withdrawal with agitation. INSTRUCTIONS Warnings: GENERAL WARNINGS: Return or contact your physician immediately if your condition worsens or changes unexpectedly, if not improving as expected, or if other problems arise. Specifically return if pain, vomiting, bleeding, breathing difficulty or fever. weakness, light headed, or other concerns. Your Current Medications: CONTINUE TAKING THE FOLLOWING MEDICATIONS: None*. Prescription Medications: Valium 5 mg: take 1 orally every 8 hours. Dispense ten (10). No refill. Substitution is permissible. (as needed for symptoms of withdrawal) vitamins: Take 1 orally every day. Dispense ninety (90). No refils. Substitution is permissible. (OTC) Follow-up: Return to the emergency department as needed. Follow up with your doctor in three days. Reason for referral: recheck today's concerns. Summary of care provided to patient and family via paper. Screening today revealed the patient's blood pressure to be in the normal range. The patient should follow up with a primary care provider for blood pressure management. Understanding of the discharge instructions verbalized by patient. Follow-up with: Damian Hummel MD, Obstetrics/Gynecology, , [facility], [address] [place] [address] Follow up in three days. Reason for referral: contact for appointment at this office. there maybe a covering doctor if he is out and ask for them instead. . Summary of care provided to patient via paper. (Electronically signed by Joao King Dr. 02/23/2017 8:58)
--- NOTE | 2017-02-22 00:47 | ED ORDER SUMMARY ---
..... Patient: WILLIAM LEONARD OrderSheet [facility] VisitID: [id number] [place] [address] 31y, F Registration Date/Time: 02/21/2017 ORDER SHEET Weight: 81.6 kg (stated) Allergies: No Known Drug Allergy GENERAL ORDERS: UA-Culture if indicated Urgent (22:16 02/21/2017 Dafne Blanc) (Ack 22:22 Kyung) (23:17 JQuivey R.N.) Urine Urgent (22:16 02/21/2017 Dafne Blanc) (Cancelled: Duplicate Order22:19 Dafne Blanc) CBC w Diff Urgent (22:20 02/21/2017 Dafne Blanc) (Ack 22:22 Kyung) (22:31 JQuivey R.N.) CMP Urgent (22:20 02/21/2017 Dafne Blanc) (Ack 22:22 Kyung) (22:31 JQuivey R.N.) Lipase Urgent (22:20 02/21/2017 Dafne Blanc) (Ack 22:22 Kyung) (22:31 JQuivey R.N.) Serum Quantitative Urgent (22:20 02/21/2017 Dafne Blanc) (Ack 22:22 Kyung) (22:31 JQuivey R.N.) US Pelvic Complete w Transvag Urgent (23:08 02/21/2017 Dafne Blanc) (Ack 23:22 Kyung) (0:23 ASchmuck) MEDICATION ORDERS: Valium PO 5 mg (HIGH ALERT MEDICATION, NOW) (22:30 02/21/2017 Dafne Blanc) (Ack 22:32 JQuivey R.N.) (22:36 LAbe R.N.) IV FLUIDS: Zofran IV 4 mg (NOW) (22:31 02/21/2017 JQuivey R.N. per protocol) (22:32 JQuivey R.N.) ORDER SHEET NOTES: [Electronically signed by Grazyna Miller (00:55 02/22/2017)] [Electronically signed by Joao King Dr. (08:58 02/23/2017)] [Electronically locked/signed by Grazyna Miller (00:55 02/22/2017)]
--- NOTE | 2017-02-23 00:59 | DIAGNOSTIC IMAGING REPORT ---
PROCEDURE: US OB 1ST TRIMESTER W/TRANSVAG INDICATION: Cramping. Mildly elevated hCG level (215). TECHNIQUE: Perez scale, color, and spectral Doppler transabdominal and endovaginal sonographic images of the first trimester gravid uterus were obtained. COMPARISON: None. FINDINGS: TRANSABDOMINAL SCANS: Uterus is not visualized (bladder incompletely filled). TRANSVAGINAL SCANS: Uterus appears normal with normal endometrial thickness (10 mm). No evidence of intrauterine gestational sac. Right ovary is enlarged (6.1 cm) secondary to a 4.1 x 3.1 cm multiseptated cyst (largest cyst 3.2 cm). Left ovary is normal (2.1 cm). No evidence of free fluid. IMPRESSION: 1. Normal uterus. 2. Mild enlargement right ovary (6.1 cm) secondary to a multi septated cyst (largest cyst 3.2 cm). While these may represent benign cysts, chronic endometriomas might also be considered. An underlying cystic neoplasm (benign most likely, malignant less likely) might also be considered. Follow-up pelvic ultrasound (3 -4 weeks) recommended to confirm resolution. 3. In view of the patient's mildly elevated hCG level, an early undeveloped intrauterine should still be considered. An ectopic is less likely, although a consideration 4. Findings discussed with Dr. Joao King.
--- NOTE | 2017-02-23 08:58 | ED MAR SUMMARY ---
..... Medication Administration Record [facility] [address] [place] [address] Patient: WILLIAM LEONARD Visit ID: [id number] 31y, F Weight: 81.6 kg Height/Length: 68 in BMI: 27.4 ALLERGIES: No Known Drug Allergy Given 22:27 02/21/2017 Fabricio Barrios RManojNManoj Medication Administered: ZOFRAN [IVP] (ONDANSETRON HCL), Dose: 4 mg IVP over 2 minute(s), Site: #1 right AC. Medication Ordered: Zofran IV 4 mg (NOW). Given 22:36 02/21/2017 Jacqueline Nazario RBarbara Medication Administered: VALIUM [PO] (DIAZEPAM), Dose: 5 mg PO. Medication Ordered: Valium PO 5 mg (HIGH ALERT MEDICATION, NOW).
--- NOTE | 2017-02-23 08:58 | ED DISCHARGE INSTRUCTIONS ---
Patient: WILLIAM LEONARD General Instructions [facility] VisitID: [id number] [place] [address] 31y, F Registration Date/Time: 02/21/2017 02/22/2017 00:23 BP: 132/73. HR: 89. RR: 18. O2 saturation: 97%. Blood pressure normal. Oxygen saturation normal. Ectopic ; positive test in emergency department. First trimester ; positive test in emergency department. (acute). Alcohol withdrawal with agitation. INSTRUCTIONS Warnings: GENERAL WARNINGS: Return or contact your physician immediately if your condition worsens or changes unexpectedly, if not improving as expected, or if other problems arise. Specifically return if pain, vomiting, bleeding, breathing difficulty or fever. weakness, light headed, or other concerns. Your Current Medications: CONTINUE TAKING THE FOLLOWING MEDICATIONS: None*. Prescription Medications: Valium 5 mg: take 1 orally every 8 hours. Dispense ten (10). No refill. Substitution is permissible. (as needed for symptoms of withdrawal) vitamins: Take 1 orally every day. Dispense ninety (90). No refils. Substitution is permissible. (OTC) Follow-up: Return to the emergency department as needed. Follow up with your doctor in three days. Reason for referral: recheck today's concerns. Summary of care provided to patient and family via paper. Screening today revealed the patient's blood pressure to be in the normal range. The patient should follow up with a primary care provider for blood pressure management. Understanding of the discharge instructions verbalized by patient. Follow-up with: Damian Hummel MD, Obstetrics/Gynecology, , [facility], [address] [place] [address] Follow up in three days. Reason for referral: contact for appointment at this office. there maybe a covering doctor if he is out and ask for them instead. . Summary of care provided to patient via paper. ADDITIONAL INFORMATION Your exam today shows that you are . During , it is normal to develop tender swollen breasts, frequent urination and mild vaginal discharge. During the first three months, nausea is common. Guidelines For A Healthy : To ensure that your baby is born healthy there are certain things that you can do: When you feel tired, you should REST. This is especially true in the later months of . Your body needs more FLUIDS than you may be used to: You should drink 8-10 glasses of juice, milk or water. Eat well-balanced MEALS at regular intervals to supply your body with enough protein. You can expect a total weight gain of about 30 pounds during the . Do not try to diet or lose weight while you are . Because of the extra nutritional needs during , take one VITAMIN daily. Do not take any other MEDICINE during your (prescribed or [id number]-[id number]) unless your doctor specifically recommends this. Many drugs can have harmful effects on the growing baby. If NAUSEA or VOMITING become a problem, avoid greasy and fried foods. Eat several smaller meals throughout the day rather than three large meals. If you SMOKE, you must stop. The nicotine you breathe in goes right to the baby. Stay away from ALCOHOL, even in moderate amounts. Daily drinking will harm your baby and can cause permanent brain damage. RECREATIONAL DRUGS are harmful, especially cocaine, crack, and heroin. Marijuana should also be avoided. If you were using recreational drugs or prescribed medicine when you found out that you were , talk to your doctor about possible effects on the fetus. Follow Up: Call to arrange for care. This can be provided by your family doctor, an chaperon ( specialist) or a primary care clinic. Get Prompt Medical Attention if any of the following occur: Vaginal bleeding Moderate or severe abdominal or back pain Excessive vomiting, unable to keep any fluids down for six hours Burning with urination Headache, dizziness or rapid weight gain Your exam today shows that you are . During , it is normal to develop tender swollen breasts, frequent urination and mild vaginal discharge. During the first three months, nausea is common. Guidelines For A Healthy : To ensure that your baby is born healthy there are certain things that you can do: When you feel tired, you should REST. This is especially true in the later months of . Your body needs more FLUIDS than you may be used to: You should drink 8-10 glasses of juice, milk or water. Eat well-balanced MEALS at regular intervals to supply your body with enough protein. You can expect a total weight gain of about 30 pounds during the . Do not try to diet or lose weight while you are . Because of the extra nutritional needs during , take one VITAMIN daily. Do not take any other MEDICINE during your (prescribed or bgeg-[id number]-perqmwz) unless your doctor specifically recommends this. Many drugs can have harmful effects on the growing baby. If NAUSEA or VOMITING become a problem, avoid greasy and fried foods. Eat several smaller meals throughout the day rather than three large meals. If you SMOKE, you must stop. The nicotine you breathe in goes right to the baby. Stay away from ALCOHOL, even in moderate amounts. Daily drinking will harm your baby and can cause permanent brain damage. RECREATIONAL DRUGS are harmful, especially cocaine, crack, and heroin. Marijuana should also be avoided. If you were using recreational drugs or prescribed medicine when you found out that you were , talk to your doctor about possible effects on the fetus. Follow Up: Call to arrange for care. This can be provided by your family doctor, an chaperon ( specialist) or a primary care clinic. Get Prompt Medical Attention if any of the following occur: Vaginal bleeding Moderate or severe abdominal or back pain Excessive vomiting, unable to keep any fluids down for six hours Burning with urination Headache, dizziness or rapid weight gain Alcohol Withdrawal Alcohol withdrawal symptoms occur if you have been drinking steadily for at least several days, and your body gets used to the effect of alcohol. When you suddenly stop drinking (or, even just cut down your daily intake but continue to drink), you may develop alcohol withdrawal, also called the The usual symptoms last 3-4 days and include nervousness, shakiness, nausea, sweating, sleeplessness. In severe cases hallucinations (seeing things that are not there) and seizures can occur. Home Care: You will need plenty of rest and fluids over the next several days. Eat regular meals. Of course, do not drink any more alcohol. During this time, it is best that you stay with family or friends who can help and support you. You can also admit yourself to a residential detox program. Do not drive until all symptoms are gone and you are feeling better. If you were given sedative medication to reduce your symptoms, do not take it more often than prescribed and never take it with alcohol. Follow Up: Once you have gone through the withdrawal symptoms, you have fought half of the brown. To avoid the risk of returning to your previous drinking pattern, it is essential that you get follow-up support and treatment. Alcoholics Anonymous offers support through a self-help fellowship. There are no dues or fees. See the Yellow Pages and call for time and place of meetings. www.aa.org [employer] offers support to families of alcohol users. 877.560.2072 www.al-anon.org [employer] [place] On Alcoholism And Drug Dependence 033-065-4022 www.ncadd.org Residential alcohol detox programs are available. Check the Yellow Pages under Drug Abuse & Treatment Centers. Get Prompt Medical Attention if any of the following occur: Severe shakiness Hallucinations Seizure Fever over 100.5 F (38.0 C) oral Headache, confusion, extreme drowsiness, inability to awaken Increasing upper abdominal pain Repeated vomiting or vomiting blood Abdominal Pain And Early [R/O Sab, Ectopic: Serial Q-Hcg's] Based on your visit today, we know you are . But, the exact cause of your abdominal (stomach) pain is not certain. Some pain or bleeding may occur in a NORMAL . But pain may also be a sign of a MISCARRIAGE or an ECTOPIC (baby growing in the Fallopian tube instead of the uterus). An ectopic is a very serious condition. It can lead to severe internal bleeding and even . Therefore, further tests are needed to find out the cause of your symptoms. These may include: ULTRASOUND - A pelvic ultrasound can detect a normal as early as 4-5 weeks of age. But, if the ultrasound test does not show the baby inside the uterus, it means that i) you have a normal less than 4 weeks old, ii) you are having or recently had a miscarriage or iii) you have an ectopic . QUANTITATIVE HCG - a test that measures the amount of hormone in your blood. Comparing today's test result to a repeat test in 48 hours shows whether or not you have a normal . LAPAROSCOPY - a surgical procedure where a tube with a light is placed inside the abdomen to look directly at the pelvic organs. This is used when it is not safe to wait 48 hours for blood test results. Important If you do have an ectopic , there is a small chance that the growing fetus can tear the Fallopian tube and cause severe internal bleeding. If this happens, there may be SUDDEN SEVERE LOWER ABDOMINAL PAIN, VAGINAL BLEEDING, WEAKNESS, DIZZINESS and sometimes FAINTING. If any of these symptoms occur: CALL AN AMBULANCE (call 911) or return immediately to the hospital. DO NOT DRIVE YOURSELF. DO NOT GO TO YOUR DOCTOR'S OFFICE OR TO A CLINIC. Home Care: Rest until your next exam. Do not perform any strenuous activity. Eat a light diet with foods that are easy to digest. Avoid sexual intercourse until all symptoms have gone away and you are cleared by your doctor. Follow Up with your doctor or this facility as advised for repeat blood testing. [NOTE: If you had an X-ray or ultrasound test, it will be reviewed by a specialist. You will be notified of any new findings that may affect your care.] Get Prompt Medical Attention if any of the following occur: Sudden or gradual worsening abdominal pain Fainting, dizziness or weakness when standing Heavy vaginal bleeding (soaking one pad an hour for three hours) Vaginal bleeding for more than 5 days Repeated vomiting or diarrhea Pain that moves to the right lower abdomen (stomach) Blood in vomit or bowel movements (dark red or black color) Fever of 100.4F (38C) or higher, or as directed by your healthcare provider Diazepam Oral tablet What is this medicine? DIAZEPAM (dye AZ e nancy) is a benzodiazepine. It is used to treat anxiety and nervousness. It also can help treat alcohol withdrawal, relax muscles, and treat certain types of seizures. How should I use this medicine? Take this medicine by mouth with a glass of water. Follow the directions on the prescription label. If this medicine upsets your stomach, take it with food or milk. Take your doses at regular intervals. Do not take your medicine more often than directed. If you have been taking this medicine regularly for some time, do not suddenly stop taking it. You must gradually reduce the dose or you may get severe side effects. Ask your doctor or health ambulatory care coordinator for advice. Even after you stop taking this medicine it can still affect your body for several days. Talk to your pharmacy delivery driver regarding the use of this medicine in children. Special care may be needed. What side effects may I notice from receiving this medicine? Side effects that you should report to your doctor or health ambulatory care coordinator as soon as possible: allergic reactions like skin rash, itching or hives, swelling of the face, lips, or tongue angry, confused, depressed, other mood changes breathing problems feeling faint or lightheaded, falls muscle cramps problems with balance, talking, walking restlessness tremors trouble passing urine or change in the amount of urine unusually weak or tired Side effects that usually do not require medical attention (report to your doctor or health ambulatory care coordinator if they continue or are bothersome): difficulty sleeping, nightmares dizziness, drowsiness, clumsiness, or unsteadiness, a hangover effect headache nausea, vomiting What may interact with this medicine? cimetidine grapefruit juice herbal or dietary supplements like kava kava, melatonin, Sparks's Wort, or valerian medicines for anxiety or sleeping problems, like alprazolam, lorazepam, or triazolam medicines for depression, mental problems or psychiatric disturbances medicines for HIV infection or AIDS prescription pain medicines rifampin, rifapentine, or rifabutin some medicines for seizures like carbamazepine, phenobarbital, phenytoin, or primidone What if I miss a dose? If you miss a dose, take it as soon as you can. If it is almost time for your next dose, take only that dose. Do not take double or extra doses. Where should I keep my medicine? Keep out of the reach of children. This medicine can be abused. Keep your medicine in a safe place to protect it from theft. Do not share this medicine with anyone. Selling or giving away this medicine is dangerous and against the law. Store at room temperature between 15 and 30 degrees C (59 and 86 degrees F). Protect from light. Keep container tightly closed. Throw away any unused medicine after the expiration date. What should I tell my health care provider before I take this medicine? They need to know if you have any of these conditions an alcohol or drug abuse problem bipolar disorder, depression, psychosis or other mental health condition glaucoma kidney or liver disease lung or breathing disease myasthenia gravis Parkinson's disease seizures or a history of seizures suicidal thoughts an unusual or allergic reaction to diazepam, other benzodiazepines, foods, dyes, or preservatives or trying to get breast-feeding What should I watch for while using this medicine? Visit your doctor or health ambulatory care coordinator for regular checks on your progress. Your body can become dependent on this medicine. Ask your doctor or health ambulatory care coordinator if you still need to take it. You may get drowsy or dizzy. Do not drive, use machinery, or do anything that needs mental alertness until you know how this medicine affects you. To reduce the risk of dizzy and fainting spells, do not stand or sit up quickly, especially if you are an older patient. Alcohol may increase dizziness and drowsiness. Avoid alcoholic drinks. Do not treat yourself for coughs, colds or allergies without asking your doctor or health ambulatory care coordinator for advice. Some ingredients can increase possible side effects. You have been given the following additional information: , New Dx , New Dx Alcohol Withdrawal Abdominal Pain, Early Diazepam Oral tablet (Electronically signed by Joao King Dr. 02/23/2017 8:58)
--- NOTE | 2017-02-23 08:58 | ED MAR SUMMARY ---
..... Medication Administration Record [facility] [address] [place] [address] Patient: WILLIAM LEONARD Visit ID: [id number] 31y, F Weight: 81.6 kg Height/Length: 68 in BMI: 27.4 ALLERGIES: No Known Drug Allergy Given 22:27 02/21/2017 Fabricio Barrios RManojNManoj Medication Administered: ZOFRAN [IVP] (ONDANSETRON HCL), Dose: 4 mg IVP over 2 minute(s), Site: #1 right AC. Medication Ordered: Zofran IV 4 mg (NOW). Given 22:36 02/21/2017 Jacqueline Nazario RBarbara Medication Administered: VALIUM [PO] (DIAZEPAM), Dose: 5 mg PO. Medication Ordered: Valium PO 5 mg (HIGH ALERT MEDICATION, NOW).
--- NOTE | 2017-02-23 08:58 | ED MED RECONCILIATION SUMMARY ---
Patient: WILLIAM LEONARD Medication Reconciliation Report [facility] VisitID: [id number] [place] [address] 31y, F Registration Date/Time: 02/21/2017 Weight: 81.6 kg Height/Length: 68 in. BMI: 27.4 ALLERGIES: No Known Drug Allergy The patient's Home Medications are listed below: NONE. The source(s) of the original Home Medication information: Not obtained. The following Medications were given to the patient in the Emergency Department: Zofran [IVP] IVP 4 mg, administered: 02/21/2017 10:27:00 PM Valium [PO] PO 5 mg, administered: 02/21/2017 10:36:00 PM The following Medications were prescribed to the patient: Valium 5 mg: take 1 orally every 8 hours. Dispense ten (10). No refill. Substitution is permissible.(as needed for symptoms of withdrawal) -- Joao King Dr. vitamins: Take 1 orally every day. Dispense ninety (90). No refils. Substitution is permissible.(OTC) -- Joao King Dr.
--- NOTE | 2017-02-23 08:58 | ED DISCHARGE INSTRUCTIONS ---
Patient: WILLIAM LEONARD General Instructions Located Within [facility] VisitID: [id number] [place] [address] 31y, F Registration Date/Time: 02/21/2017 02/22/2017 00:23 BP: 132/73. HR: 89. RR: 18. O2 saturation: 97%. Blood pressure normal. Oxygen saturation normal. Ectopic ; positive test in emergency department. First trimester ; positive test in emergency department. (acute). Alcohol withdrawal with agitation. INSTRUCTIONS Warnings: GENERAL WARNINGS: Return or contact your physician immediately if your condition worsens or changes unexpectedly, if not improving as expected, or if other problems arise. Specifically return if pain, vomiting, bleeding, breathing difficulty or fever. weakness, light headed, or other concerns. Your Current Medications: CONTINUE TAKING THE FOLLOWING MEDICATIONS: None*. Prescription Medications: Valium 5 mg: take 1 orally every 8 hours. Dispense ten (10). No refill. Substitution is permissible. (as needed for symptoms of withdrawal) vitamins: Take 1 orally every day. Dispense ninety (90). No refils. Substitution is permissible. (OTC) Follow-up: Return to the emergency department as needed. Follow up with your doctor in three days. Reason for referral: recheck today's concerns. Summary of care provided to patient and family via paper. Screening today revealed the patient's blood pressure to be in the normal range. The patient should follow up with a primary care provider for blood pressure management. Understanding of the discharge instructions verbalized by patient. Follow-up with: Damian Hummel MD, Obstetrics/Gynecology, , [facility], [address] [place] [address] Follow up in three days. Reason for referral: contact for appointment at this office. there maybe a covering doctor if he is out and ask for them instead. . Summary of care provided to patient via paper. ADDITIONAL INFORMATION Your exam today shows that you are . During , it is normal to develop tender swollen breasts, frequent urination and mild vaginal discharge. During the first three months, nausea is common. Guidelines For A Healthy : To ensure that your baby is born healthy there are certain things that you can do: When you feel tired, you should REST. This is especially true in the later months of . Your body needs more FLUIDS than you may be used to: You should drink 8-10 glasses of juice, milk or water. Eat well-balanced MEALS at regular intervals to supply your body with enough protein. You can expect a total weight gain of about 30 pounds during the . Do not try to diet or lose weight while you are . Because of the extra nutritional needs during , take one VITAMIN daily. Do not take any other MEDICINE during your (prescribed or [id number]) unless your doctor specifically recommends this. Many drugs can have harmful effects on the growing baby. If NAUSEA or VOMITING become a problem, avoid greasy and fried foods. Eat several smaller meals throughout the day rather than three large meals. If you SMOKE, you must stop. The nicotine you breathe in goes right to the baby. Stay away from ALCOHOL, even in moderate amounts. Daily drinking will harm your baby and can cause permanent brain damage. RECREATIONAL DRUGS are harmful, especially cocaine, crack, and heroin. Marijuana should also be avoided. If you were using recreational drugs or prescribed medicine when you found out that you were , talk to your doctor about possible effects on the fetus. Follow Up: Call to arrange for care. This can be provided by your family doctor, an investigation division sergeant ( specialist) or a primary care clinic. Get Prompt Medical Attention if any of the following occur: Vaginal bleeding Moderate or severe abdominal or back pain Excessive vomiting, unable to keep any fluids down for six hours Burning with urination Headache, dizziness or rapid weight gain Your exam today shows that you are . During , it is normal to develop tender swollen breasts, frequent urination and mild vaginal discharge. During the first three months, nausea is common. Guidelines For A Healthy : To ensure that your baby is born healthy there are certain things that you can do: When you feel tired, you should REST. This is especially true in the later months of . Your body needs more FLUIDS than you may be used to: You should drink 8-10 glasses of juice, milk or water. Eat well-balanced MEALS at regular intervals to supply your body with enough protein. You can expect a total weight gain of about 30 pounds during the . Do not try to diet or lose weight while you are . Because of the extra nutritional needs during , take one VITAMIN daily. Do not take any other MEDICINE during your (prescribed or [id number]) unless your doctor specifically recommends this. Many drugs can have harmful effects on the growing baby. If NAUSEA or VOMITING become a problem, avoid greasy and fried foods. Eat several smaller meals throughout the day rather than three large meals. If you SMOKE, you must stop. The nicotine you breathe in goes right to the baby. Stay away from ALCOHOL, even in moderate amounts. Daily drinking will harm your baby and can cause permanent brain damage. RECREATIONAL DRUGS are harmful, especially cocaine, crack, and heroin. Marijuana should also be avoided. If you were using recreational drugs or prescribed medicine when you found out that you were , talk to your doctor about possible effects on the fetus. Follow Up: Call to arrange for care. This can be provided by your family doctor, an investigation division sergeant ( specialist) or a primary care clinic. Get Prompt Medical Attention if any of the following occur: Vaginal bleeding Moderate or severe abdominal or back pain Excessive vomiting, unable to keep any fluids down for six hours Burning with urination Headache, dizziness or rapid weight gain Alcohol Withdrawal Alcohol withdrawal symptoms occur if you have been drinking steadily for at least several days, and your body gets used to the effect of alcohol. When you suddenly stop drinking (or, even just cut down your daily intake but continue to drink), you may develop alcohol withdrawal, also called the The usual symptoms last 3-4 days and include nervousness, shakiness, nausea, sweating, sleeplessness. In severe cases hallucinations (seeing things that are not there) and seizures can occur. Home Care: You will need plenty of rest and fluids over the next several days. Eat regular meals. Of course, do not drink any more alcohol. During this time, it is best that you stay with family or friends who can help and support you. You can also admit yourself to a residential detox program. Do not drive until all symptoms are gone and you are feeling better. If you were given sedative medication to reduce your symptoms, do not take it more often than prescribed and never take it with alcohol. Follow Up: Once you have gone through the withdrawal symptoms, you have fought half of the brown. To avoid the risk of returning to your previous drinking pattern, it is essential that you get follow-up support and treatment. Alcoholics Anonymous offers support through a self-help fellowship. There are no dues or fees. See the Yellow Pages and call for time and place of meetings. www.aa.org [employer] offers support to families of alcohol users. 956.502.1027 www.al-anon.org [employer] Alcoholism And Drug Dependence 435-212-3758 www.ncadd.org Residential alcohol detox programs are available. Check the Yellow Pages under Drug Abuse & Treatment Centers. Get Prompt Medical Attention if any of the following occur: Severe shakiness Hallucinations Seizure Fever over 100.5 F (38.0 C) oral Headache, confusion, extreme drowsiness, inability to awaken Increasing upper abdominal pain Repeated vomiting or vomiting blood Abdominal Pain And Early [R/O Sab, Ectopic: Serial Q-Hcg's] Based on your visit today, we know you are . But, the exact cause of your abdominal (stomach) pain is not certain. Some pain or bleeding may occur in a NORMAL . But pain may also be a sign of a MISCARRIAGE or an ECTOPIC (baby growing in the Fallopian tube instead of the uterus). An ectopic is a very serious condition. It can lead to severe internal bleeding and even . Therefore, further tests are needed to find out the cause of your symptoms. These may include: ULTRASOUND - A pelvic ultrasound can detect a normal as early as 4-5 weeks of age. But, if the ultrasound test does not show the baby inside the uterus, it means that i) you have a normal less than 4 weeks old, ii) you are having or recently had a miscarriage or iii) you have an ectopic . QUANTITATIVE HCG - a test that measures the amount of hormone in your blood. Comparing today's test result to a repeat test in 48 hours shows whether or not you have a normal . LAPAROSCOPY - a surgical procedure where a tube with a light is placed inside the abdomen to look directly at the pelvic organs. This is used when it is not safe to wait 48 hours for blood test results. Important If you do have an ectopic , there is a small chance that the growing fetus can tear the Fallopian tube and cause severe internal bleeding. If this happens, there may be SUDDEN SEVERE LOWER ABDOMINAL PAIN, VAGINAL BLEEDING, WEAKNESS, DIZZINESS and sometimes FAINTING. If any of these symptoms occur: CALL AN AMBULANCE (call 911) or return immediately to the hospital. DO NOT DRIVE YOURSELF. DO NOT GO TO YOUR DOCTOR'S OFFICE OR TO A CLINIC. Home Care: Rest until your next exam. Do not perform any strenuous activity. Eat a light diet with foods that are easy to digest. Avoid sexual intercourse until all symptoms have gone away and you are cleared by your doctor. Follow Up with your doctor or this facility as advised for repeat blood testing. [NOTE: If you had an X-ray or ultrasound test, it will be reviewed by a specialist. You will be notified of any new findings that may affect your care.] Get Prompt Medical Attention if any of the following occur: Sudden or gradual worsening abdominal pain Fainting, dizziness or weakness when standing Heavy vaginal bleeding (soaking one pad an hour for three hours) Vaginal bleeding for more than 5 days Repeated vomiting or diarrhea Pain that moves to the right lower abdomen (stomach) Blood in vomit or bowel movements (dark red or black color) Fever of 100.4F (38C) or higher, or as directed by your healthcare provider Diazepam Oral tablet What is this medicine? DIAZEPAM (dye AZ e nancy) is a benzodiazepine. It is used to treat anxiety and nervousness. It also can help treat alcohol withdrawal, relax muscles, and treat certain types of seizures. How should I use this medicine? Take this medicine by mouth with a glass of water. Follow the directions on the prescription label. If this medicine upsets your stomach, take it with food or milk. Take your doses at regular intervals. Do not take your medicine more often than directed. If you have been taking this medicine regularly for some time, do not suddenly stop taking it. You must gradually reduce the dose or you may get severe side effects. Ask your doctor or health health care manager for advice. Even after you stop taking this medicine it can still affect your body for several days. Talk to your studio owner regarding the use of this medicine in children. Special care may be needed. What side effects may I notice from receiving this medicine? Side effects that you should report to your doctor or health health care manager as soon as possible: allergic reactions like skin rash, itching or hives, swelling of the face, lips, or tongue angry, confused, depressed, other mood changes breathing problems feeling faint or lightheaded, falls muscle cramps problems with balance, talking, walking restlessness tremors trouble passing urine or change in the amount of urine unusually weak or tired Side effects that usually do not require medical attention (report to your doctor or health health care manager if they continue or are bothersome): difficulty sleeping, nightmares dizziness, drowsiness, clumsiness, or unsteadiness, a hangover effect headache nausea, vomiting What may interact with this medicine? cimetidine grapefruit juice herbal or dietary supplements like kava kava, melatonin, [place]'s Wort, or valerian medicines for anxiety or sleeping problems, like alprazolam, lorazepam, or triazolam medicines for depression, mental problems or psychiatric disturbances medicines for HIV infection or AIDS prescription pain medicines rifampin, rifapentine, or rifabutin some medicines for seizures like carbamazepine, phenobarbital, phenytoin, or primidone What if I miss a dose? If you miss a dose, take it as soon as you can. If it is almost time for your next dose, take only that dose. Do not take double or extra doses. Where should I keep my medicine? Keep out of the reach of children. This medicine can be abused. Keep your medicine in a safe place to protect it from theft. Do not share this medicine with anyone. Selling or giving away this medicine is dangerous and against the law. Store at room temperature between 15 and 30 degrees C (59 and 86 degrees F). Protect from light. Keep container tightly closed. Throw away any unused medicine after the expiration date. What should I tell my health care provider before I take this medicine? They need to know if you have any of these conditions an alcohol or drug abuse problem bipolar disorder, depression, psychosis or other mental health condition glaucoma kidney or liver disease lung or breathing disease myasthenia gravis Parkinson's disease seizures or a history of seizures suicidal thoughts an unusual or allergic reaction to diazepam, other benzodiazepines, foods, dyes, or preservatives or trying to get breast-feeding What should I watch for while using this medicine? Visit your doctor or health health care manager for regular checks on your progress. Your body can become dependent on this medicine. Ask your doctor or health health care manager if you still need to take it. You may get drowsy or dizzy. Do not drive, use machinery, or do anything that needs mental alertness until you know how this medicine affects you. To reduce the risk of dizzy and fainting spells, do not stand or sit up quickly, especially if you are an older patient. Alcohol may increase dizziness and drowsiness. Avoid alcoholic drinks. Do not treat yourself for coughs, colds or allergies without asking your doctor or health health care manager for advice. Some ingredients can increase possible side effects. You have been given the following additional information: , New Dx , New Dx Alcohol Withdrawal Abdominal Pain, Early Diazepam Oral tablet (Electronically signed by Joao King Dr. 02/23/2017 8:58)
--- NOTE | 2017-02-23 08:58 | ED MED RECONCILIATION SUMMARY ---
Patient: WILLIAM LEONARD Medication Reconciliation Report [facility] VisitID: [id number] [place] [address] 31y, F Registration Date/Time: 02/21/2017 Weight: 81.6 kg Height/Length: 68 in. BMI: 27.4 ALLERGIES: No Known Drug Allergy The patient's Home Medications are listed below: NONE. The source(s) of the original Home Medication information: Not obtained. The following Medications were given to the patient in the Emergency Department: Zofran [IVP] IVP 4 mg, administered: 02/21/2017 10:27:00 PM Valium [PO] PO 5 mg, administered: 02/21/2017 10:36:00 PM The following Medications were prescribed to the patient: Valium 5 mg: take 1 orally every 8 hours. Dispense ten (10). No refill. Substitution is permissible.(as needed for symptoms of withdrawal) -- Joao King Dr. vitamins: Take 1 orally every day. Dispense ninety (90). No refils. Substitution is permissible.(OTC) -- Joao King Dr.
== END 2017-02-22 00:54 | disposition home or self-care (01) ==
LOC: ED SRH 22:03
DX: O99.311 Alcohol use complicating pregnancy, first trimester (principal); Z3A.08 8 weeks gestation of pregnancy; R45.1 Restlessness and agitation; F10.239 Alcohol dependence with withdrawal, unspecified; F17.210 Nicotine dependence, cigarettes, uncomplicated; Z87.59 Personal history of other complications of pregnancy, childbirth and the puerperium
CPT/HCPCS: 90004; 90100; 90197; 92235; 95059